=== PATIENT | male | born 1950 | race African-American/Black ===

== ENCOUNTER 2016-04-24 12:05 | Inpatient (IN) | payer MEDICARE, MEDICAID ==
[~2016-04-24] VITALS: Ht 190.5 cm; Wt 89.2 kg
[~2016-04-24 12:05] MED LIST: AMRIX30 MG PO; ANUSOL-HC 2.5%30 GM TP; ASACOL; ASCORBIC ACID500 MG PO; ASPIRIN81 MG PO; BACTRIM DS TABL1 TAB PO; BAYER CHEWABLE81 MG PO; CARAFATE1 G PO; CARDURA4 MG PO; CIPRO500 MG PO; CORDARONE200 MG PO; COREG 3.1253.125 MG GT; COREG 3.1253.125 MG PO; COUMADIN5 MG PO; CYCLOBENZAPRINE10 MG PO; DIABETA2.5 MG PO; DIABETA5 MG PO; DULCOLAX10 MG/SUPP RC; FLAGYL500 MG PO; FORTAZ INJ500 MG IV; GLUCOTROL 5 MG T5 MG PO; GLUCOTROL XL 5 M5 MG PO; GLYBURIDE2.5 MG PO; HEPARIN SOD5000 U/ML SQ; HUMALOG100 U/M1 SQ; HYDRALAZINE HCL25 MG; LISINOPRIL10 MG PO; LOMOTIL TABLET1 TAB PO; LOPRESSOR IV; LORTAB 5/500 TA1 TA2 PO; MEPHYTON5 MG PO; MIRALAX17 GM PO; NEURONTIN 300300 MG PO; NEXIUM40 MG PO; NITROSTAT0.4 MG SL; NORCO 5/325 TAB1 TA1 PO; NORCO 7.5-3251 EACH PO; NORCO 7.5/325 T1 TA1 PO; NORVASC2.5 MG PO; NORVASC5 MG PO; ONDANSETRON H2 MG/ML IV; PACERONE100 MG PO; PACERONE200 MG PO; PAXIL20 MG PO; PHENERGAN25 M1 PO; PHENERGAN25 MG/ML IM; PLAVIX75 MG PO; PREVACID30 MG PO; PRINIVIL20 MG PO; PROTONIX 40 MG40 MG IV; PROTONIX40 MG PO; QUESTRAN PACK4 G/PKT PO; RENAGEL800 MG PO; REQUIP XL2 MG PO; SALINE FLUSH10 ML IJ; SENSIPAR30 MG PO; SENSIPAR60 MG PO; TUMS500 MG PO; TYLENOL 325 MG325 MG PO; TYLENOL325 MG PO; ULTRAM50 MG PO; VIAGRA50 MG PO; [UNRECOGNIZED DRUG - OTHER] IV; [UNRECOGNIZED DRUG - OTHER] OR
[2016-04-24 13:34] LABS: BASOPHILS 0.2 % (0.0-2.0); EOSINOPHILS 2.2 % (0-7); HEMATOCRIT 26.9 % (42.0-54.0); HEMOGLOBIN 8.2 g/dL (13.5-17.5); IMMATURE GRANULOCYTES 0.2 % (0-5); LYMPHOCYTES 10.6 % (15-50); MCH 29.7 pg (26.0-34.0); MCHC 30.5 g/dL (31.0-37.0); MCV 97.5 fL (80.0-100.0); MEAN PLATELET VOLUME 9.6 fL (7.4-10.4); NEUTROPHILS 76.8 % (40-80); PLATELET COUNT 173 10x3/uL (130-400); RBC 2.76 10x6/uL (4.20-6.10); RDW 16.6 % (11.5-14.5); WBC 5.1 10x3/uL (4.8-10.8)
--- NOTE | 2016-04-24 17:04 | NUR ---
RECEIVED PT FROM ADMISSIONS VIA W/C IN STABLE CONDITION ASSISTED TO BED [id number] WELL NAD NOTED
[2016-04-24 20:36] VITALS: BP 195/79
[2016-04-25 00:24] VITALS: BP 160/50
[2016-04-25 04:37] VITALS: BP 164/54
[2016-04-25 06:23] VITALS: BP 195/79; BMI 25.8
[2016-04-25 07:02] LABS: BASOPHILS 0.4 % (0.0-2.0); EOSINOPHILS 1.6 % (0-7); HEMOGLOBIN 7.9 g/dL (13.5-17.5); IMMATURE GRANULOCYTES 0.3 % (0-5); LYMPHOCYTES 5.8 % (15-50); MCH 29.5 pg (26.0-34.0); MCHC 30.4 g/dL (31.0-37.0); MEAN PLATELET VOLUME 9.8 fL (7.4-10.4); MONOCYTES 13.1 % (2-11); NEUTROPHILS 78.8 % (40-80); PLATELET COUNT 185 10x3/uL (130-400); RBC 2.68 10x6/uL (4.20-6.10); RDW 16.9 % (11.5-14.5)
[2016-04-25 07:03] LABS: WBC 6.8 10x3/uL (4.8-10.8)
--- NOTE | 2016-04-25 07:09 | NUR ---
PT LAYING TO LEFT SIDE DENIES NEEDS AT THIS TIME WILL CONTINUE TO MONITOR.
[2016-04-25 07:16] LABS: ANION GAP 17.2 mmol/L (8-16); CALCIUM 9.3 mg/dL (8.5-10.1); CREATININE - SERUM 9.1 mg/dL (0.6-1.3); POTASSIUM - SERUM 4.2 mmol/L (3.5-5.1)
[2016-04-25 08:28] VITALS: BP 184/83
[2016-04-25 09:53] VITALS: Ht 190.5 cm; Wt 89.2 kg
--- NOTE | 2016-04-25 10:59 | NUR ---
PT STILL IN DIALYSIS
--- NOTE | 2016-04-25 12:21 | NUR ---
Mr. Loo had hemodialysis today via his right upper arm av fistula from 0813 untill 1114 in the dialysis suite. Average blood flow was 400 mls/minute. Net fluid removed was 4000 mls. Post vital signs were: B/P: 176/92, HR: 92, Temp: 98.4, Resps:18.
--- NOTE | 2016-04-25 14:27 | NUR ---
CHANGED PT DRESSING ON LEFT STUMP PER PT REQUEST. COPIOUS AMOUNT OF DRAINAGE GREEN/YELLOW IN COLOR, FOUL SMELLING. WOUND BED RED/PINK IN COLOR. CLEANSED WITH WOUND CERTIFIED SURGICAL TECHNOLOGIST. DRESSED WITH 4X4 AND CURLEX DRESSING. SIGNED AND DATED. PT TOLERATED WELL. PT DENIES OTHER NEEDS AT THIS TIME WILL CONTINUE TO MONITOR.
[2016-04-25 16:03] VITALS: BP 154/76
--- NOTE | 2016-04-25 16:43 | NUR ---
LOOKED ON PT LEFT ARM FOR IV ACCESS DIDNT SEE ANYTHIGN. ASKED PAXTON BEST TO SITE PT IF POSSIBLE. ATTEMPTED TO SITE PT TO LEFT AC X1 STICK NO SUCCESS, VEIN BLEW. APPLIED WARM BLANKETS AND WARM WIPE PACKS TO ARM. REASSESSED. STILL NO S/S VEINS. NO IV SITE.
--- NOTE | 2016-04-25 18:04 | NUR ---
PT REMOVED DRESSING FROM LEG FOR THE SECOND TIME TODAY REDRESSED AGAIN. CLEANSED WITH WOUND COMBAT ENGINEER DRESSED WITH 4X4 AND CURLEX DRESSING SIGNED AND DATED.
--- NOTE | 2016-04-25 20:20 | NUR ---
THERMOSTAT BROKEN IN PT ROOM 2135. PT MOVED TO 2138.
[2016-04-25 20:49] VITALS: BP 152/50
[2016-04-26 00:04] VITALS: BP 141/60
[2016-04-26 04:12] VITALS: BP 138/60
[2016-04-26 08:52] VITALS: BP 154/59
--- NOTE | 2016-04-26 10:00 | NUR ---
IV STARTED LEFT FOREARM. 20GUAGE
[2016-04-26 10:07] LABS: BASOPHILS 0.5 % (0.0-2.0); EOSINOPHILS 2.3 % (0-7); HEMATOCRIT 24.5 % (42.0-54.0); HEMOGLOBIN 7.6 g/dL (13.5-17.5); IMMATURE GRANULOCYTES 0.3 % (0-5); LYMPHOCYTES 9.1 % (15-50); MCV 96.8 fL (80.0-100.0); MEAN PLATELET VOLUME 9.7 fL (7.4-10.4); MONOCYTES 9.8 % (2-11); PLATELET COUNT 184 10x3/uL (130-400); RBC 2.53 10x6/uL (4.20-6.10); RDW 17.4 % (11.5-14.5)
[2016-04-26 10:43] LABS: ALBUMIN 2.6 g/dL (3.4-5.0); ANION GAP 12.8 mmol/L (8-16); BILIRUBIN - TOTAL 0.38 mg/dL (0.2-1.3); CALCIUM 9.1 mg/dL (8.5-10.1); CARBON DIOXIDE 30.4 mmol/L (21.0-32.0); CREATININE - SERUM 7.6 mg/dL (0.6-1.3); POTASSIUM - SERUM 4.2 mmol/L (3.5-5.1); PROTEIN - SERUM 6.3 g/dL (6.4-8.2)
[2016-04-26 13:20] VITALS: BP 156/60
--- NOTE | 2016-04-26 15:00 | NUR ---
PT LEAVING FOR CTA WITH IMAGING TODAY.
[2016-04-26 17:18] VITALS: BP 158/41
[2016-04-26 20:19] VITALS: BP 116/77
--- NOTE | 2016-04-26 20:30 | NUR ---
ADMIN SCHED MED. REQUESTED MORE ICE WATER AND BALDEV CRACKERS.
[2016-04-27 00:36] VITALS: BP 114/67
[2016-04-27 04:46] VITALS: BP 126/70
--- NOTE | 2016-04-27 06:21 | NUR ---
ADMIN SCHED MEDS. DRSG CAME OFF LEFT STUMP. CLEANED STUMP WITH WOUND UPPER LEATHER CUTTER. APPLIED ANOTHER DRSG WITH 4X4'S, WRAPPED WITH KERLIX.
--- NOTE | 2016-04-27 07:36 | NUR ---
AM ROUNDING- PT LAYING ON LEFT SIDE SLEEPING. IV SEEN TO LEFT FOREARM SALINE LOCKED AND PATENT. ON ROOM AIR. PT HAS RIGHT AVF AND DIALYZES ON WEDNESDAY, WEDNESDAY, AND SATURDAYS. PT IS HAS BILATERAL BKA. PER REPORT FROM PELT SHEARER NURSE JAGRUTI, THE RIGHT BKA IS OLDER AND HEALED, THE LEFT ONE IS FAIRLY NEW AT 5 WEEKS. DRESSING CLEAN, DRY AND INTACT SEEN TO RIGHT STUMP. PER REPORT FROM PELT SHEARER NURSE JAGRUTI, PT HAS RIGHT INDEX FINGER THAT IS NECROCTIC. NO MONITOR. PT IS ON LOVENOX FOR DVT PREVENTION. NO NEED AT THIS TIME. WILL CONTINUE TO MONITOR.
[2016-04-27 08:00] VITALS: BP 109/47
[2016-04-27 11:27] VITALS: BP 139/71
--- NOTE | 2016-04-27 12:54 | NUR ---
WOUND CARE CONSULT: MARIA M HAS DRESSING IN PLACE. PT STATES HH COMES AND CHANGES IT DAILY DOING NORMAL SALINE WET TO DRY DRESSINGS. MEASUREMENTS ARE 6.5CM X 11CM X 2CM. WOUND BED IS PINK AND WITHOUT ODOR. CLEANSED WITH WOUND SUPERINTENDENT CIRCUS AND APPLIED 4X4S SATURATED WITH NORMAL SALINE. COVERED WITH DRY 4X4S, WRAPPED WITH KERLIX AND SECURED WITH TAPE. FOR ADDITIONAL SECURITY APPLIED SPANDAGE OVER DRESSING. PT TOLERATED WELL.
--- NOTE | 2016-04-27 13:26 | NUR ---
1245- LAURA, WOUNDCARE NURSE IN PTS ROOM CHANGING LEFT BKA DRESSING.
--- NOTE | 2016-04-27 14:15 | NUR ---
Patient Name: SHERITA LOCKHART Admission Status: ER Accout number: [id number] Admission Date: 04-24-2016 : 1950 Admission Diagnosis: Attending: ERMIAS Current LOS: 3 Anticipated DC Date: Planned Disposition: Senior Living Facility Primary Insurance: MEDICARE A & B Discharge Planning Comments: * Is the patient Alert and Oriented? Yes 0 * How many steps to enter\exit or inside your home? NONE 0 * PCP DR. WENDY HARLEY 0 * Pharmacy [facility] IN [place] 0 * Preadmission Environment Home with Family 0 * ADLs Independent 0 * Equipment Glucometer Oxygen 0 * Other Equipment HOVERROUND SCOOTER IS INOPERATIVE [facility] MEDICAL EQUIPMENT PROVIDER IN [place], [place]. 0 * List name and contact numbers for known caregivers / representatives who currently or will assist patient after discharge: ALEXANDER LOCKHART, SPOUSE, 0 * Community resources currently utilized Home Health, Other 0 * Please name any agencies selected above. [facility], [place] [facility]; [phone] , OUTPATIENT DIALYSIS, [facility] IN [place], , 1030 AM, SCAT TRANSPORTATION. * Additional services required to return to the preadmission environment? Yes * Can the patient safely return to the preadmission environment? Yes 0 * Has this patient been hospitalized within the prior 30 days at any hospital? No 0 CM MET WITH PT IN ROOM TO DISCUSS DISCHARGE PLANNING AND NEEDS. PT REPORTS LIVING AT HOME INDEPENDENTLY AND WITH HIS WHO IS CURRENTLY IN REHAB AT [facility]. PT REPORTS HAVING ALL NEEDED MEDICAL EQUIPMENT FROM AN UNKNOWN PROVIDER IN [place]; PT REPORTS THE HOVERROUND SCOOTER HE GOT FROM A FRIEND NO LONGER WORKS AND HIS MANUAL WHEELCHAIR IS NOT WORKING GOOD EITHER. PT RECEIVES DIALYSIS AT [facility] IN [place], , 1030, MEDICAID TRANSPORTATION TAKES HIM TO AND FROM APPOINTEMENTS. PT PROVIDED HIS MEDICAID NUMBER, [id number]. CM DISCUSSED AVAILABILITY OF HOME HEALTH, REHAB SERVICES AND MEDICAL EQUIPMENT. PT WANTS TO GO TO [facility] FOR REHAB SERVICES. CHOICE LETTER SIGNED BY PT, IMPORTANT MESSAGE FROM MEDICARE PROVIDED AND EXPLAINED. CM CALLED [facility], , LEFT MESSAGE FOR [facility] REQUESTING REHAB EVALUATION SUM[facility] IS ON VACATION. CM FAXED REFERRAL TO [facility] AT [phone]. CM WAITING REHAB EVALUATION / ADMISSION DETERMINATION FROM [facility]. Foreign Correspondent: Ian Brown
[2016-04-27 16:00] VITALS: BP 142/69
--- NOTE | 2016-04-27 16:07 | NUR ---
CONSENTS FOR PROCEDURE TOMORROW SIGNED AND DATED AND PLACED IN CHART.
--- NOTE | 2016-04-27 16:07 | NUR ---
WHILE ASSISTING PT TO RESTROOM, PT STATED "WHERE IS MY ROYAL" , THEN PRECEDED TO STATE, "HOW DID I GET HERE". THEN PT STATED THAT THERE FOR A MINUTE HE WAS CONFUSED AND THOUGHT HE WAS AT AN OFFICE IN [place]. I THEN ASKED PT WHERE HE WAS AT THIS TIME, HE REPLIED "[facility]". WILL CONTINUE TO MONITOR.
--- NOTE | 2016-04-27 17:04 | NUR ---
WHILE GIVING PT EVENING MEDICINE, PT STARTED THROWING UP RED COLORED EMESIS. PT HAD RED JELLO FOR LUNCH TODAY. WILL CONTINUE TO MONITOR.
--- NOTE | 2016-04-27 18:11 | NUR ---
PT SITTING UP ON SIDE OF BED. ASKED PT IF HE FEELS BETTER FROM EARLIER, PT REPLIED "YES". WILL CONTINUE TO MONITOR.
--- NOTE | 2016-04-27 19:37 | NUR ---
PATIENT SLEEPING ON RIGHT SIDE IN BED. BED IN LOWEST LOCKED POSITION, CALL LIGHT WITHIN REACH, x2 BEDRAILS UP, HOB ELEVATED 20 DEGREES. NO APARENT DISTRESS, ON ROOM AIR. 2OG PIV TO LEFT FOREARM THAT IS SALINE LOCKED. RIGHT AV FISTULA WNL. BANDAGE TO THE LEFT BKA, RIGHT BKA WNL. RIGHT INDEX FINGER HAS A NECROTIC AREA THAT IS SUPPOSED TO BE AMPUTATED. RING FINGER HAS A BLACKENED TIP. A&O, NO COMPLAINTS OF PAIN OR NAUSEA.
[2016-04-27 20:58] VITALS: BP 163/92
[2016-04-28 01:46] VITALS: BP 162/84
--- NOTE | 2016-04-28 02:45 | NUR ---
PT LAYING IN BED NO DISTRESS OBSERVED AT THIS TIME RESPERATIONS EVEN LEFT BKA WRAPPED IN DRESSING AND PT DENIES PAIN AT THIS TIME. PT INFORMED OF PROCEDURE TO RIGHT HAND DUE TO NECROTIC TISSUE CALL LIGHT IN REACH SRX2 BED LOW AND LOCKED WILL MONITOR
[2016-04-28 05:13] VITALS: BP 158/80
[2016-04-28 05:29] LABS: BASOPHILS 0.3 % (0.0-2.0); EOSINOPHILS 3.1 % (0-7); HEMATOCRIT 23.1 % (42.0-54.0); IMMATURE GRANULOCYTES 0.3 % (0-5); LYMPHOCYTES 10.9 % (15-50); MCH 29.9 pg (26.0-34.0); MCHC 31.2 g/dL (31.0-37.0); MCV 95.9 fL (80.0-100.0); MEAN PLATELET VOLUME 9.4 fL (7.4-10.4); MONOCYTES 9.4 % (2-11); PLATELET COUNT 160 10x3/uL (130-400); RBC 2.41 10x6/uL (4.20-6.10); RDW 16.6 % (11.5-14.5); WBC 3.9 10x3/uL (4.8-10.8)
[2016-04-28 05:37] LABS: HEMOGLOBIN 7.2 g/dL (13.5-17.5); INR 2.56 (0.85-1.17); PROTIME 27.7 SECONDS (11.6-15.0)
[2016-04-28 06:28] LABS: ANION GAP 19.5 mmol/L (8-16); CALCIUM 8.4 mg/dL (8.5-10.1); CARBON DIOXIDE 23.8 mmol/L (21.0-32.0); PHOSPHOROUS 6.8 mg/dL (2.5-4.9); POTASSIUM - SERUM 4.3 mmol/L (3.5-5.1)
[2016-04-28 06:29] LABS: CREATININE - SERUM 9.8 mg/dL (0.6-1.3)
--- NOTE | 2016-04-28 07:45 | NUR ---
AM ROUNDING- PT LAYING IN BED ON RIGHT SIDE SLEEPING. IV SEEN TO LEFT FOREARM SALINE LOCKED AND PATENT. ON ROOM AIR. PT HAS RIGHT INDEX FINGER THAT IS NECROTIC. PT IS NPO FOR SURGERY TODAY TO HAVE RIGHT INDEX FINGER AMPUTATED. CONSENTS ARE SIGNED AND DATED AND IN CHART. SHOP TAILOR NURSE, ALEXEI IS DOING SURGICAL BATH AT PRESENT TIME. PT HAS BILATERAL BKA TO RIGHT AND LEFT SIDE. DRESSING SEEN TO LEFT SIDE THAT IS CLEAN, DRY AND INTACT. RESERVE RIGHT ARM FOR AVF. PT DIALYZES ON WEDNESDAY, WEDNESDAY, AND WEDNESDAY. NO MONITOR. WHEELCHAIR AT BEDSIDE. ON LOVENOX FOR DVT PREVENTION. PT HAD A [facility]ITCAL LAB THIS AM, [facility] 7.2, SHOP TAILOR NURSE FILLED OUT CRITICAL LAB SHEET. WILL CONTINUE TO MONITOR.
[2016-04-28 08:28] VITALS: BP 171/67
--- NOTE | 2016-04-28 09:55 | NUR ---
DIALYSIS CALLED WANTING TO KNOW IF PT CAN GO AHEAD AND HAVE DIALYSIS. PAGED DR. OSMAN TO SEE IF PT CAN GO FOR DIALYSIS BEFORE SURGERY. AWAITING CALLBACK.
--- NOTE | 2016-04-28 11:09 | NUR ---
PT TO SURGERY VIA BED. PRE-OP MEDICATIONS GIVEN ORDERED.
--- NOTE | 2016-04-28 11:49 | NUR ---
1000- IVORY FROM DIALYSIS CALLED TO SEE WHEN PT CAN COME FOR DIALYSIS. INFORMED IVORY THAT PT IS HAVING SURGERY TODAY AND I DO NOT KNOW WHEN PT WILL BE GOING FOR THAT. 1017- CALLED DR. OSMAN TO SEE IF IT WAS OK TO GO AHEAD AND DO DIALYSIS BEFORE SURGERY OR AFTER, DR. OSMAN STATED TO CALL SURGERY TO SEE WHAT TIME THE SURGERY WOULD BE BEFORE LETTING PT GO TO DIALYSIS. CALLED SURGERY, ULICES CHARGE NURSE STATED IT WOULD BE AROUND 1215 AND TO WAIT TO DO DIALYSIS UNTIL AFTER SURGERY. CALLED DIALYSIS AND SPOKE WITH IVORY TO INFORM HER OF THIS.
--- NOTE | 2016-04-28 12:59 | NUR ---
PREOPERATIVE PULSE OX PER ANESTHESIA WAS 85%
--- NOTE | 2016-04-28 13:10 | NUR ---
GLADYS RN CALLED FROM RECOVERY IN SURGERY. STATED PT WAS DOING FINE, WASN'T IN ANY PAIN AND HAS BEEN NO PROBLEM FOR THEM. STATED ANESTHESIA SAID HE CAN EAT WHEN BACK ON UNIT. REPORTED THAT HIS O2 SAT IS 98% ROOM AIR. AWAITING PT TO GET TO UNIT.
--- NOTE | 2016-04-28 13:26 | NUR ---
PT BACK FROM SURGERY VIA BED. STATES HE IS NOT IN ANY KIND OF PAIN RIGHT NOW. B/P IS 143/77, RESPIRATIONS ARE 16, PULSE IS 77, TEMP IS 97.5. WILL CONTINUE TO MONITOR.
--- NOTE | 2016-04-28 16:17 | NUR ---
CALLED IVORY IN DIALYSIS TO INFORM HER THAT PT WILL BE GETTING 2 UNITS OF PRBC.
--- NOTE | 2016-04-28 16:47 | NUR ---
TO DIALYSIS VIA WHEELCHAIR.
--- NOTE | 2016-04-28 17:30 | NUR ---
1600-CHANGED PTS DRESSING TO LEFT BKA. WOUND BED IS PINK WITHOUT ODOR, NO DRAINAGE SEEN. MEASUREMENTS ARE 6.5CM X 11CM X 2CM. WOUND CLEANSED WITH WOUND REAL ESTATE JOB TITLES AND APPLIED 4X4S SATURATED WITH NORMAL SALINE. COVERED WITH DRY 4X4S AND WRAPPED WITH KERLIX AND SECURED WITH TAPE. PT TOLERATED WELL. WILL CONTINUE TO MONITOR.
--- NOTE | 2016-04-28 18:44 | NUR ---
PT IS AT DIALYSIS.
--- NOTE | 2016-04-28 20:41 | NUR ---
PATIENT RETURNED TO ROOM FROM DIALYSIS VIA WHEELCHAIR.
[2016-04-29 00:37] VITALS: BP 145/74
[2016-04-29 04:31] VITALS: BP 170/66
[2016-04-29 05:21] LABS: BASOPHILS 0.2 % (0.0-2.0); EOSINOPHILS 1.9 % (0-7); IMMATURE GRANULOCYTES 0.5 % (0-5); LYMPHOCYTES 8.7 % (15-50); MCH 30.2 pg (26.0-34.0); MCHC 31.7 g/dL (31.0-37.0); MCV 95.3 fL (80.0-100.0); MEAN PLATELET VOLUME 9.7 fL (7.4-10.4); MONOCYTES 7.8 % (2-11); NEUTROPHILS 80.9 % (40-80); PLATELET COUNT 151 10x3/uL (130-400); RDW 16.5 % (11.5-14.5); WBC 4.1 10x3/uL (4.8-10.8)
[2016-04-29 05:33] LABS: HEMATOCRIT 28.1 % (42.0-54.0); HEMOGLOBIN 8.9 g/dL (13.5-17.5); RBC 2.95 10x6/uL (4.20-6.10)
[2016-04-29 05:45] LABS: ANION GAP 15.3 mmol/L (8-16); CALCIUM 8.5 mg/dL (8.5-10.1); CARBON DIOXIDE 28.8 mmol/L (21.0-32.0); CREATININE - SERUM 7.5 mg/dL (0.6-1.3); PHOSPHOROUS 6.3 mg/dL (2.5-4.9); POTASSIUM - SERUM 4.1 mmol/L (3.5-5.1)
[2016-04-29 08:40] VITALS: BP 157/57
[2016-04-29 12:38] VITALS: BP 138/67
--- NOTE | 2016-04-29 12:58 | NUR ---
Patient Name: SHERITA LOCKHART Encounter No: [id number] : 1950 Primary Insurance: MEDICARE A & B Anticipated DC Date: Planned Disposition: [facility] Facility External Planned Provider: [facility], MEDICARE REHAB BED DCP follow-up note: CM FAXED REFERRAL UPDATE TO KATHY AT [facility] AT [phone]. CM WAITING REHAB EVALUATION / ADMISSION DETERMINATION FROM [facility]. Bath Tester: Ian Brown
--- NOTE | 2016-04-29 13:26 | NUR ---
UP TO BEDSIDE COMMODE WITH ASSISTANCE OF PT. NANO WELL. DRESSING ON HAND CDI, CAPILLARY REFILL <3 MINS. MOVING FINGERS WELL. L STUMP DRESSING CLEAN AND DRY WITH NO DRAINAGE.
--- NOTE | 2016-04-29 14:00 | NUR ---
Nutrition follow-up: Diet: Renal PO Intake ~50% post-surgery Labs reviewed Wt: 223# +BM Will continue to provide food choices and honor food preferneces. RDN will order Nepro BID. Following.
--- NOTE | 2016-04-29 15:20 | NUR ---
PATIENT RESTING QUIETLY IN HIS BED, HO UP 30 DEGREES. HE IS AWKE AND ALERT AND STATES THAT HE NEEDS ASSISTANCE WITH DRESSING TO THE LEFT BKA. DRESSING IS OFF AND FRESH FLESH IS EXPOSED. DENIES OTHER NEEDS.
[2016-04-29 16:07] VITALS: BP 142/52
--- NOTE | 2016-04-29 19:12 | NUR ---
PATIENT'S STUMP HAS BEEN REDRESSED WITH NS WET TO DRY. HE IS ABLE TO TRANSFER SELF FROM BED TO .
[2016-04-29 22:30] VITALS: BP 128/89
--- NOTE | 2016-04-29 23:41 | NUR ---
PT ASSESSMENT COMPLETED PT C/O DIHARREA AND ASKING FOR SOMETHING TO ASSIST IN RELIFE NO ORDERS AT THIS TIME. DRESSING TO LEFT HAND INTACT AND NO DRAINAGE NOTED OR OBSERVED. DRESSING TO RIGHT STUMP IN PLACE, WET TO DRY DRESSING AND NO DRAINAGE OBSERVED. WILL MONITOR
[2016-04-30 02:50] VITALS: BP 195/66
[2016-04-30 06:05] VITALS: BP 171/101
[2016-04-30 06:33] LABS: BASOPHILS 0.2 % (0.0-2.0); EOSINOPHILS 2.1 % (0-7); HEMATOCRIT 28.7 % (42.0-54.0); LYMPHOCYTES 9.7 % (15-50); MCH 29.7 pg (26.0-34.0); MCHC 31.4 g/dL (31.0-37.0); MCV 94.7 fL (80.0-100.0); MEAN PLATELET VOLUME 9.5 fL (7.4-10.4); MONOCYTES 9.5 % (2-11); NEUTROPHILS 78.5 % (40-80); PLATELET COUNT 144 10x3/uL (130-400); RBC 3.03 10x6/uL (4.20-6.10); WBC 4.3 10x3/uL (4.8-10.8)
[2016-04-30 06:52] LABS: ANION GAP 17.6 mmol/L (8-16); CALCIUM 8.5 mg/dL (8.5-10.1); CARBON DIOXIDE 26.5 mmol/L (21.0-32.0); PHOSPHOROUS 6.5 mg/dL (2.5-4.9); POTASSIUM - SERUM 4.1 mmol/L (3.5-5.1)
--- NOTE | 2016-04-30 07:27 | NUR ---
PT SITTING UP IN BED TRYING TO TRANSFER TO WHEELCHAIR. ASSISTED HIM. PT DENIES OTHER NEEDS WILL CONTINUE TO MONITOR.
[2016-04-30 08:21] VITALS: BP 171/84
--- NOTE | 2016-04-30 10:08 | CN ---
PATIENT NAME:SHERITA LOCKHART MEDICAL RECORD: [id number] : [birth year] LOCATION:D. D.2139 ADMIT DATE: 04/24/16 ACCOUNT: [id number] CONSULTING PHYSICIAN: YO IYER MD REFERRING PHYSICIAN: ELIZABET OSMAN MD DATE OF CONSULTATION: 04/25/2016 HISTORY OF PRESENT ILLNESS: The patient has necrosis of part of the right index finger. This is the site where he has a fistula. I will call for Dr. Alvarado. Dr. Alvarado's currently out of town. I am going to order a CTA of the right upper extremity. The extremity is swollen. If this was a steal problem, I would expect it to be dry gangrene and for the hand to have a dry eschar and be small. The patient states that his pain is 10/10. Palpation aggravates. Nothing alleviates. This is a consultation note addendum. Symptoms came on gradually. They are nonradiating. For the typed portion of the consult note, please see the chart. This included past medical, surgical history, allergies, social history as well as current medications. REVIEW OF SYSTEMS: No nausea, no vomiting, no fever, no chills. Positive for fatigue, positive for shortness of breath, no chest pain. Review of systems is negative other than as is described above. PHYSICAL EXAMINATION: GENERAL: The patient does not appear acutely ill. He does not appear chronically ill. VITAL SIGNS: Reviewed. HEAD: External ears appear normal. EYES: Extraocular movements are intact. NECK: Trachea is midline. CHEST: No intercostal retractions. PULMONARY: Nonlabored, no stridor. ABDOMEN: Nontender. EXTREMITIES: Infection of the right index finger with eschar. NEUROLOGIC: Nonfocal, no lethargy. The patient answers questions appropriately. PSYCHIATRIC: Normal affect. BACK: No thoracic kyphosis. LYMPHATICS: No lymphangitic streaking of the exposed extremities. IMPRESSION: Infection of right index finger, possible steal syndrome. PLAN: CTA of the right upper extremity. Orthopedic consultation. For possible debridement. TRANSINT:[id number] Voice Confirmation ID: [id number] DOCUMENT ID: [id number] CONSULT REPORT [id number] SHERITA LOCKHART ROBERT MD at 1008 CC: [id number] DICTATION DATE: 04/25/162009 SEDIMENT REMEDIATION CONSULTANT: 04/26/16 0243 ADM IN [facility] [address] [id number]
--- NOTE | 2016-04-30 11:55 | NUR ---
GOT CONSENTS SIGNED AND THEY ARE ON THE CHART.
[2016-04-30 12:04] VITALS: BP 136/96
--- NOTE | 2016-04-30 12:35 | NUR ---
INITIATION OF HEMODIALYSIS ON PATIENT, 400BFR, 15G NEEDLES, NO ACUTE DISTRESS. ATTEMPTING 4 LITERS IN 3 HOURS.
--- NOTE | 2016-04-30 15:47 | NUR ---
PT IS SITTING UP IN BED WATCHING TV DENIES NEEDS AT THIS TIME PT IS TO HAVE FISTULAGRAM TOMORROW CONSENTS HAVE BEEN SIGNED AND ARE ON THE CHART. PT DENIES NEEDS AT THIS TIME. DRESSINGS ARE CDI AT THIS TIME. WILL CONTINUE TO MONITOR.
--- NOTE | 2016-04-30 15:50 | NUR ---
HEMODIALYSIS COMPLETE, NET FLUID REMOVAL OF 4 LITERS, TOLERATED WELL. BLOOD RETURNED, NEEDLES PULLED, HEMOSTASIS ACHEIVED. FLOOR NURSE LUCAS OCHOA RN DOWNSTAIRS TO GIVE MEDS, TOOK PATIENT BACK BY .
--- NOTE | 2016-04-30 19:33 | NUR ---
RECEIVED REPORT, TADEO-DARYL, BED IS LOW, SRX2, CALL LIGHT IN REACH, DENIES ANY AT THIS TIME
[2016-04-30 20:00] VITALS: BP 143/64
--- NOTE | 2016-04-30 21:00 | NUR ---
DRESSING CHANGED TO L.BKA
[2016-05-01] VITALS: BP 143/78
--- NOTE | 2016-05-01 00:28 | NUR ---
COMBINATION MACHINE TOOL OPERATOR AT BEDSIDE TO OBTAIN VITALS, CALL LIGHT IN REACH. WILL CONTINUE WITH PLAN OF CARE.
[2016-05-01 04:00] VITALS: BP 143/78
[2016-05-01 05:42] LABS: BASOPHILS 0.2 % (0.0-2.0); EOSINOPHILS 1.7 % (0-7); HEMATOCRIT 28.7 % (42.0-54.0); LYMPHOCYTES 8.5 % (15-50); MCH 29.8 pg (26.0-34.0); MCHC 31.4 g/dL (31.0-37.0); MEAN PLATELET VOLUME 9.6 fL (7.4-10.4); MONOCYTES 9.3 % (2-11); NEUTROPHILS 80.3 % (40-80); PLATELET COUNT 163 10x3/uL (130-400); RBC 3.02 10x6/uL (4.20-6.10); RDW 15.9 % (11.5-14.5); WBC 4.7 10x3/uL (4.8-10.8)
[2016-05-01 05:48] LABS: ANION GAP 13.8 mmol/L (8-16); CARBON DIOXIDE 28.8 mmol/L (21.0-32.0); CREATININE - SERUM 7.3 mg/dL (0.6-1.3); POTASSIUM - SERUM 3.6 mmol/L (3.5-5.1)
--- NOTE | 2016-05-01 07:09 | NUR ---
PT SITTING UP IN BED WATCHING TV DENIES NEEDS AT THIS TIME WILL CONTINUE TO MONITOR
[2016-05-01 08:05] VITALS: BP 153/90
[2016-05-01 12:19] VITALS: BP 154/108
--- NOTE | 2016-05-01 14:14 | NUR ---
Nutrition Follow Up: Chart reviewed. Pt had fistulogram today. Diet: NPO (Renal prior to this) PO Intake: 61% (9 meal avg) Wt gain of 18# since admit +BM 04/30/16 Meds: Zofran Labs noted - Na low; BUN, Cr, Phos elevated Pt with fair po intake prior to NPO diet. Rec resuming Renal diet when medically feasible. RD following.
--- NOTE | 2016-05-01 14:21 | NUR ---
PT TO SURGERY
--- NOTE | 2016-05-01 16:17 | NUR ---
OPEN WOUND FROM RECENT RIGHT FIRST FINGER AMPUTATION. -ECOSTER
[2016-05-01 18:13] VITALS: BP 141/71
--- NOTE | 2016-05-01 19:25 | NUR ---
RECEIVED REPORT. TADEO-DARYL. LEFT CHEST HEMOSPLIT, R. AVF, DENIES ANY NEEDS, CALL LIGHT IN REACH, BED IS LOW, SRX2
[2016-05-01 20:00] VITALS: BP 136/70
--- NOTE | 2016-05-01 21:05 | NUR ---
DRESSING CHANGED TO LBKA, DENIES ANY PAIN AT THIS TIME
[2016-05-02] VITALS: BP 173/77
--- NOTE | 2016-05-02 01:12 | NUR ---
PT RESTING SOUNDLY WITHOUT C/O OR DISTRESS NOTED. CALL LIGHT IS WITHIN REACH. NO NEEDS VOICED. WILL MONITOR.
[2016-05-02 07:34] VITALS: BP 175/81
[2016-05-02 08:05] LABS: BASOPHILS 0.2 % (0.0-2.0); EOSINOPHILS 1.7 % (0-7); HEMATOCRIT 28.6 % (42.0-54.0); HEMOGLOBIN 9.1 g/dL (13.5-17.5); IMMATURE GRANULOCYTES 0.2 % (0-5); LYMPHOCYTES 5.4 % (15-50); MCHC 31.8 g/dL (31.0-37.0); MCV 94.4 fL (80.0-100.0); MEAN PLATELET VOLUME 8.9 fL (7.4-10.4); MONOCYTES 10.7 % (2-11); NEUTROPHILS 81.8 % (40-80); PLATELET COUNT 144 10x3/uL (130-400); RBC 3.03 10x6/uL (4.20-6.10); RDW 15.5 % (11.5-14.5); WBC 4.8 10x3/uL (4.8-10.8)
--- NOTE | 2016-05-02 08:06 | NUR ---
RECEIVED REPORT FROM CUFF RUNNER NURSE, FRANKO RASMUSSEN. PT IN BED, DENIES ANY NEEDS AT THIS TIME. CALL LIGHT IN REACH, NAD NOTED, WILL CONTINUE TO MONITOR.
--- NOTE | 2016-05-02 08:58 | NUR ---
ADMINISTERED MORNING MEDICATIONS, PT UP TO SIDE OF BED, DENIES ANY NEEDS AT THIS TIME. CALL LIGHT IN REACH, NAD NOTED, WILL CONTINUE TO MONITOR.
[2016-05-02 09:02] LABS: CALCIUM 7.9 mg/dL (8.5-10.1); CREATININE - SERUM 9.1 mg/dL (0.6-1.3)
[2016-05-02 09:03] LABS: PHOSPHOROUS 6.5 mg/dL (2.5-4.9)
--- NOTE | 2016-05-02 10:25 | NUR ---
PT TRANSFERED TO DIALYSIS VIA BED, NAD NOTED.
--- NOTE | 2016-05-02 15:46 | NUR ---
PT TRANSFERED BACK TO ROOM 2139 VIA BED, NAD NOTED, PT DENIES ANY NEEDS AT THIS TIME. CALL LIGHT IN REACH, WILL CONTINUE TO MONITOR.
[2016-05-02 16:19] VITALS: BP 172/65
--- NOTE | 2016-05-02 17:28 | NUR ---
PT STATED THAT HE WAS NOT MADE AWARE OF THE FISTULOGRAM THAT THAT WAS BEING DONE ON 05/01/16. PT IS VERY UPSET OVER THAT, HE STATED " THERE WAS NOTHING WRONG WITH MY FISTULA". INFOMRED PT THAT HE SIGNED THE CONSENTS WHERE IT STATED THAT HE WAS GOING TO HAVE A RIGHT UPPER EXTREMITY FISTULOGRAM, WITH POSSIBLE ARTERIOGRAM, POSSIBLE BANDING, POSSIBLE DRIL PROCEDURE, POSSIBLE ANGIOPLASTIES OR STENTING. PT STILL VERY UNHAPPY. PT STATES THAT " HE WANTS TO LEAVE BEFORE DR. LEE KILLS HIM. PT ALSO REFUSED TO TAKE HIS CARAFATE PILLS.
--- NOTE | 2016-05-02 18:31 | NUR ---
PROVIDED DRESSING CHANGE TO LEFT STUMP BECAUSE DRESSING THAT WAS ON THERE FELL OFF. PT TOLERATED PROCEDURE WELL, ALSO PROVIDED PT WITH A PAIR OF BRIEF. PT DENIES ANY OTHER NEEDS AT THIS TIME. CALL LIGHT IN REACH, NAD NOTED, WILL CONTINUE TO MONITOR.
--- NOTE | 2016-05-02 19:43 | NUR ---
RECEIVED REPORT, SITTING UP ON SIDE OF BED, DENIES ANY NEEDS, CALL LIGHT IN REACH, BED IS LOW, SRX2, IV-LFA-SL,Judith CLEMONS. CHEST HEMOSPLIT
[2016-05-02 20:49] VITALS: BP 139/71
--- NOTE | 2016-05-03 00:14 | NUR ---
PT ON BEDPAN. WILL CONTINUE TO MONITOR.
[2016-05-03 00:36] VITALS: BP 171/57
--- NOTE | 2016-05-03 01:18 | NUR ---
DIRECTOR ECONOMIC SHAVING/BATHING/BED CHANGE
[2016-05-03 04:39] VITALS: BP 166/74
--- NOTE | 2016-05-03 07:05 | NUR ---
RECEIVED REPORT, PT IN BED, DENIES ANY NEEDS AT THIS TIME, ASSESSMENT DONE. CALL LIGHT IN REACH, NAD NOTED, WILL CONTINUE TO MONITOR.
--- NOTE | 2016-05-03 07:07 | NUR ---
recieved report on patient, patient is alert and oriented at this time. patient has a l fa iv that is sl at this time. patient is on room air, nad noted at this time. chest rises and falls equally. patient has a newly l bka with a dressing cdi at this time. patient denies any needs at this time. will cont to monitor. cpoc
--- NOTE | 2016-05-03 08:41 | NUR ---
ADMINISTERED MORNING MEDICATIONS, PT IN BED, DENIES ANY NEEDS AT THIS TIME. CALL LIGHT IN REACH, NAD NOTED, WILL CONTINUE TO MONITOR.
[2016-05-03 09:31] VITALS: BP 191/46
--- NOTE | 2016-05-03 12:33 | NUR ---
ADMINISTERED NORCO 7.5MG FOR PAIN LEVEL OF 10/10. PT DENIES ANY OTHER NEEDS AT THIS TIME. CALL LIGHT IN REACH, NAD NOTED, WILL CONTINUE TO MONITOR.
[2016-05-03 12:55] VITALS: BP 172/88
[2016-05-03 16:59] VITALS: BP 166/74
--- NOTE | 2016-05-03 17:17 | NUR ---
WAS UNABLE TO DO DRESSING CHANGE TO LEFT STUMP TODAY. DRESSING FROM YESTERDAY STILL INTACT.
[2016-05-03 21:36] VITALS: BP 149/89
--- NOTE | 2016-05-04 01:57 | NUR ---
NURSE ROUNDS 22:00 - PT LYING IN BED, COVERS PULLED OVER HIS HEAD, EASILY ROUSABLE TO VERBAL STIMULI, DENIED ANY NEEDS. PT DID NOT TOUCH HIS SUPPER TRAY, STATING HE WAS NOT HUNGRY AND MILDLY NAUSEATED, BUT REFUSED THE PO ODT ZOFRAN, SAYING IT ACTUALLY MAKES HIM MORE NAUSEATED. 21:00 MEDICATIONS GIVEN, ALONG WITH PRN NORCO, SCHEDULED DRESSING CHANGE COMPLETED, PT TOLERATED DRESSING CHANGE WELL. CONTINUE TO MONITOR CLOSELY.
[2016-05-04 02:34] VITALS: BP 152/73
[2016-05-04 04:44] VITALS: BP 151/70
--- NOTE | 2016-05-04 06:52 | NUR ---
PT AWAKE, ALERT, ORIENTED, C/O OF GROIN DISCOMFORT. PT STATES HE SWEATS IN BETWEEN HIS LEGS, AND HAS BEEN USING BABY POWDER, BUT IT IS NOT HELPING AT THIS TIME. WILL ADD BUTT PASTE AND NOTIFY PHYSICIAN. DENIES ANY OTHER NEEDS. PTS DRESSING HAS STAYED ON THIS SHIFT, IS CLEAN, DRY, AND INTACT. CONTINUE TO MONITOR.
[2016-05-04 06:58] LABS: BASOPHILS 0.2 % (0.0-2.0); EOSINOPHILS 1.6 % (0-7); HEMATOCRIT 30.3 % (42.0-54.0); HEMOGLOBIN 9.3 g/dL (13.5-17.5); IMMATURE GRANULOCYTES 0.2 % (0-5); LYMPHOCYTES 6.4 % (15-50); MCH 29.6 pg (26.0-34.0); MCHC 30.7 g/dL (31.0-37.0); MEAN PLATELET VOLUME 9.9 fL (7.4-10.4); MONOCYTES 7.6 % (2-11); RBC 3.14 10x6/uL (4.20-6.10); RDW 15.4 % (11.5-14.5)
[2016-05-04 07:08] LABS: MCV 96.5 fL (80.0-100.0); PLATELET COUNT 186 10x3/uL (130-400); WBC 6.1 10x3/uL (4.8-10.8)
--- NOTE | 2016-05-04 07:15 | NUR ---
RECIEVED REPORT ON PATIENT, PATIENT IS SLEEPING AT THIS TIME, NAD NOTED. CHEST RISES AND FALLS EQUALLY. PATIENT HAS A L FA IV THAT IS SL AT THIS TIME. DRESSING NOTED TO ROSI HERNANDEZ AT THIS TIME. PATIENT AROUSES TO VOICE, DENIES ANY PAIN OR NEEDS AT THIS TIME. WILL CONT TO MONITOR PATIENT. BED LOW AND LOCKED. CALL LIGHT IN REACH. CPOC
[2016-05-04 08:00] VITALS: BP 176/48
[2016-05-04 08:10] LABS: CALCIUM 8.1 mg/dL (8.5-10.1); CREATININE - SERUM 8.8 mg/dL (0.6-1.3); MAGNESIUM - SERUM 1.9 mg/dL (1.8-2.4)
--- NOTE | 2016-05-04 09:30 | NUR ---
LEAVING FLOOR, HOMAR MORELAND TAKING OVER CARE
[2016-05-04 11:08] VITALS: BP 143/57
--- NOTE | 2016-05-04 13:30 | NUR ---
RETURNED TO RESUME CARE ON PATIENT, PATIENT IS SITTING UP IN BED AT THIS TIME. ALERT AND ORIENTED. WATCHING TV, DENIES ANY NEEDS. WILL CONT TO MONITOR PATIENT. CPOC
--- NOTE | 2016-05-04 13:34 | NUR ---
RETURNED TO RESUME CARE, PATIENT IS SLEEPING AT THIS TIME, NAD NOTED. CHEST RISES AND FALLS EQUALLY. WILL CONT TO MONITOR
--- NOTE | 2016-05-04 14:14 | NUR ---
Patient Name: SHERITA LOCKHART Encounter No: [id number] : 1950 Primary Insurance: MEDICARE A & B Anticipated DC Date: 05-05-2016 Planned Disposition[facility] External Planned Provider: [facility], MEDICARE REHAB BED DCP follow-up note: CM CALLED AND SPOKE TO [facility] AT [facility], ; [facility] WILL ACCEPT PT FOR REHAB AT DISCHARGE. [facility] TO CHECK PT'S INSURANCE IN THE MORNING AND CALL CM BACK. [facility] TO PROVIDE VAN TRANSPORTATION TOMORROW. CM FAXED UPDATED REFERRAL INFORMATION TO [facility] AT [phone]. CM SPOKE TO PT WHO IS STILL IN AGREEMENT WITH DISCHARGE TO [facility] FOR REHAB. IMPORTANT MESSAGE FROM MEDICARE PROVIDED AND EXPLAINED. FOR DISCHARGE, FAX DISCHARGE INFORMATION TO [facility] AT [phone]. NURSE REPORT TO BE CALLED TO [facility] AT [phone]. [facility] TO ARRANGE VAN TRANSPORT. STEVE RIVERA, CASE MANAGEMENT
--- NOTE | 2016-05-04 15:00 | NUR ---
PATIENT ASSISTED TO USE THE BED MCNEIL, PATIENT HAD BM, CLEANED UP. DENIES ANY OTHER NEEDS AT THIS TIME. WILL CONT TO MONITOR
[2016-05-04 15:09] VITALS: BP 142/38
--- NOTE | 2016-05-04 17:55 | NUR ---
PATIENT STATES HE WANTS TO KEEP HIS TRAY, NOT WANTING TO EAT AT THIS TIME. WILL LEAVE TRAY. DENIES ANY PAIN OR NEEDS. CPOC
--- NOTE | 2016-05-04 19:30 | NUR ---
ASSESSMENT COMPLETE, DENIES NEEDS AT THIS TIME. HOB UP SR UP X2, C/L IN REACH. ON RA, LEFT FA SL INTACT WITH NO R/S NOTED AT SITE. BILAT BKAS NOTED, WITH LEFT BKA DRSG CDI.ON ROOM AIR, RESP UNLAB, LEFT CHEST HEMESPLIT INTACT AND LOCKED. RT AVFISTULA NOTED, NON-WORKING. RT INDEX FINGER AMP. RT MIDDLE FINGER WITH GANGRENE NOTED. BEDREST, TURNS SELF W/O DIFF. CONTINUE TO MONITOR.
[2016-05-04 21:31] VITALS: BP 191/61
--- NOTE | 2016-05-04 22:50 | NUR ---
SNACK GIVEN PER REQUEST. NANO WELL. C/L IN REACH. CONTINUE TO MONITOR.
[2016-05-05 00:11] VITALS: BP 179/86
[2016-05-05 06:31] LABS: BASOPHILS 0.2 % (0.0-2.0); EOSINOPHILS 1.6 % (0-7); HEMOGLOBIN 8.6 g/dL (13.5-17.5); IMMATURE GRANULOCYTES 0.2 % (0-5); LYMPHOCYTES 8.7 % (15-50); MCH 29.8 pg (26.0-34.0); MCHC 30.7 g/dL (31.0-37.0); MCV 96.9 fL (80.0-100.0); MEAN PLATELET VOLUME 9.9 fL (7.4-10.4); MONOCYTES 9.7 % (2-11); NEUTROPHILS 79.6 % (40-80); PLATELET COUNT 157 10x3/uL (130-400); RBC 2.89 10x6/uL (4.20-6.10); RDW 15.5 % (11.5-14.5); WBC 5.5 10x3/uL (4.8-10.8)
[2016-05-05 06:33] VITALS: BP 171/79
[2016-05-05 06:52] LABS: ANION GAP 13.5 mmol/L (8-16); CALCIUM 7.4 mg/dL (8.5-10.1); CARBON DIOXIDE 28.3 mmol/L (21.0-32.0); MAGNESIUM - SERUM 1.8 mg/dL (1.8-2.4); PHOSPHOROUS 6.1 mg/dL (2.5-4.9); POTASSIUM - SERUM 3.8 mmol/L (3.5-5.1)
[2016-05-05 07:54] VITALS: BP 148/68
--- NOTE | 2016-05-05 08:15 | NUR ---
PATIENT IS AWAKE AND ALERT, DENIES NEEDS. ASSISTED WITH MEAL SET UP.
--- NOTE | 2016-05-05 09:20 | NUR ---
PATIENT IS AWAKE AND ALERT, RATES THE PAIN IN HIS RIGHT HAND A 9. NORCO GIVEN. BP MEDICATIONS HELD FOR DIALYSIS AFTER TALKING WITH HER. EXPECT HER CALL IN 15 MINUTES TO DELIVER HIM.
--- NOTE | 2016-05-05 09:52 | NUR ---
Patient Name: SHERITA LOCKHART Encounter No: [id number] : 1950 Primary Insurance: MEDICARE A & B Anticipated DC Date: 05-06-2016 Planned Disposition: Penitentiary Facility External Planned Provider: [facility] [place]: MEDICARE REHAB BED DCP follow-up note: AT APPROXIMATELY 0830AM, [facility] RECEIVED CALL FROM [facility], ; [facility] WILL ACCEPT PT FOR REHAB AT DISCHARGE. CAN GALVANIZER NO LATER THAN 1100 TODAY. CM REVIEWED CHART AND SPOKE TO RADHA WITH [facility], PT IS SCHEDULED FOR DIALYSIS THIS MORNING, IT WILL NOT BE COMPLETED PRIOR TO 1100 AM. CM SPOKE TO PT WHO IS STILL IN AGREEMENT WITH DISCHARGE TO [facility] FOR REHAB. CM PAGED RENAL NURSE TO NOTIFY. CM CALLED [facility] AT [facility] WHO INFORMED CM THAT THEY CAN ACCEPT TOMORROW, 05-06-16 AND WILL CALL IN THE MORNING TO SCHEDULE TRANSPORTATION TO [facility] IN [place]. FOR DISCHARGE, FAX DISCHARGE INFORMATION TO [facility] AT [phone]. NURSE REPORT TO BE CALLED TO [facility] AT [phone]. [facility] TO ARRANGE VAN TRANSPORT IN THE MORNING, 05-06-16. STEVE RIVERA, CASE MANAGEMENT
--- NOTE | 2016-05-05 10:45 | NUR ---
PATIENT OFF THE UNIT TO DIALYSIS.
--- NOTE | 2016-05-05 14:16 | NUR ---
PATIENT BACK TO THE UNIT FROM DIALYSIS. HE STATE SHTAT HE FEELS BEATEN. HE DID NOT COMPLETE HIS TREATMENT, REQUESTING TO BE TAKEN OFF EARLY. HE SAID "THE MACHINE WAS TURNED UP TO HIGH". HE BECAME NAUSEATED AND FEELING POORLY. REFUSES LUNCH TRAY. ON 3 LITERS OF O2 AT THIS TIME.
--- NOTE | 2016-05-05 14:57 | NUR ---
PATIENT RESTING QUIETLY WITHOUT COMPLAINTS.
[2016-05-05 16:01] VITALS: BP 159/82
--- NOTE | 2016-05-05 16:59 | OP ---
PATIENT NAME: SHERITA LOCKHART MEDICAL RECORD: [id number] :[birth year] LOCATION:D. 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 OPERATION PERFORMED: Fistulogram with one stick done with ultrasound guidance and then open ligation of right brachiocephalic AV fistula followed by insertion of a left internal jugular 23 cm long HemoSplit tunneled dialysis catheter also done with ultrasound and fluoroscopic guidance. PREOPERATIVE NOTE: Mr. Lockhart has had a right brachiocephalic AV fistula, now for 6 or 8 months, he has had complaints of chronic pain in his right hand and has recently developed gangrene of his second and fourth fingers. He had his second finger amputated just [address] Triana. He is brought to the operating room at this time for a fistulogram and possibly revision of surgery or ligation of his fistula. Under general anesthetic with an LMA per ELECTROENCEPHALOGRAPH TECHNICIAN, the patient is prepped and draped in sterile manner. The fistula was accessed with ultrasound near the arterial anastomosis using micropuncture technique, which then led up to insertion of a 6-Chinese introducer. The ultrasound exam did demonstrate the presence of the stents within the cephalic vein in the mid portion of the arm. Also, there was identified area of stenosis in the cephalic vein in the upper one-third of the arm as it approached the deltopectoral groove where the J wire from the 6-Chinese introducer would not pass. Contrast injections then confirmed that there was a 99% stenosis of the cephalic vein at that point and that there were collaterals, which were responsible for venous outflow from this fistula. The fistula was then occluded with a 4-Chinese Lamar embolectomy catheter and repeated contrast injection and digital subtraction technique demonstrated the brachial artery anastomosis to be wide open and really no lesions of the brachial artery in the arm or antecubital level. There were, however, extensive calcifications present in the arteries of the forearm. The ulnar artery is totally occluded, the radial artery was patent, though calcified and the palm arches are not intact and the digital vessels are tiny little tortuous calcific vessels. It became rapidly apparent that the patient's atherosclerotic arterial disease is so severe that he will never be able to support dialysis access in the right upper extremity and so I went ahead and made a transverse incision just above the antecubital space and exposed the cephalic vein and doubly ligated it with 2-0 silk. That wound was then closed with interrupted inverted 3-0 Vicryl and a running intracuticular 4-0 Monocryl and Dermabond glue and was dressed with Maxorb AG and Tegaderm with Cavilon skin prep. A 4-0 Prolene [id number] skin stitch was used at the puncture site to secure hemostasis. 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 I went on to the left side and there noted that he had a very large and otherwise normal appearing internal jugular vein. An incision was made at the base of the neck, there on the left and a needle and guidewire introduced under ultrasound and then fluoroscopic guidance. Dilators were passed under fluoroscopy and lastly, a dilator peel-away sheath was introduced. I chose a new entry site, made a skin incision and pulled the catheter through the subcutaneous tunnel up to the cervical incision and then inserted the catheter through the peel-away sheath. The catheter became positioned appropriately in the right atrium and I oriented the venous and arterial limbs of the catheter appropriately I believe. Both lumens were then accessed and aspirated, free return of blood from each one was confirmed. They were then flushed with saline and then heparin locked with 100 units per cc heparin, clamped and capped. The cervical incision was closed with interrupted inverted 3-0 Vicryl and Dermabond glue and the entry site was also sealed with Dermabond glue and both sites were dressed with Maxorb Ag, Tegaderm and Cavilon skin prep. The patient was then awakened and in stable condition returned to the recovery room. The patient will have a single view chest x-ray in recovery to document the catheter placement and position ____ complications. The patient then will be returned to his bed on med 2 and will resume his preop medications, renal diet, etc. Blood loss during the procedure today was minimal, probably about 20 cc, all of which was lost during the HemoSplit insertion phase. No drain was used. All sponges, instruments and needles were accounted for and no surgical specimen was submitted for histopathology. I believe the patient will need to remain catheter dependent for hemodialysis, at least I do not think that he can support hemodialysis with the arterial supply from either upper extremity. Since he has already had one leg amputated, it seems unlikely that either of his lower extremities are likely to be a great source of arterial inflow for an AV graft. Also, I believe that his fourth finger will need to be amputated probably soon and that could be done by Dr. Triana. TRANSINT:[id number] Voice Confirmation ID: [id number] DOCUMENT ID: [id number] CHRIS LEE MD at 1659 CC: [id number] DICTATION DATE: 05/01/161741 SITE INTERPRETER: 05/01/162107 ADM IN [facility] [address] [id number]
--- NOTE | 2016-05-05 19:30 | NUR ---
AWAKE, ALERT VOICES NO C/O PAIN AT THIS TIME. HOB UP SR UP X2, C/L IN REACH. CONTINUE TO MONITOR.
[2016-05-05 21:39] VITALS: BP 185/42
[2016-05-06 00:46] VITALS: BP 129/63
[2016-05-06 04:00] VITALS: BP 96/75
[2016-05-06 09:21] VITALS: BP 164/79
--- NOTE | 2016-05-06 11:24 | NUR ---
Patient Name: SHERITA LOCKHART Encounter No: [id number] : 1950 Primary Insurance: MEDICARE A & B Anticipated DC Date: 05-06-2016 Planned Disposition: Long Term Facility External Planned Provider: [facility], MEDICARE REHAB BED DCP follow-up note: CM RECEIVED CALL FROM [facility] AT [facility], ASKING TO ARRANGE [facility] FOR THIS MORNING. BRIAR WOOD SORTER SPOKE TO DR. JENKINS WHO PROVIDED DISCHARGE ORDERS. [facility] SCHEDULED FOR ABOUT 1130AM TODAY. CM SPOKE TO PT IN ROOM WHO IS IN AGREEMENT WITH DISCHARGE TO [facility] TODAY AND WILL NOTIFY HIS SPOUSE. CM FAXED DISCHARGE INFORMATION TO [facility] AT [phone]. NURSE REPORT TO BE CALLED TO [facility] AT [phone]. [facility] VAN TRANSPORT TODAY AT OR AFTER 1130AM. STEVE RIVERA, CASE MANAGEMENT
--- NOTE | 2016-05-06 11:33 | NUR ---
REPORT CALLED TO GRADY GOLDEN AT [facility].
--- NOTE | 2016-05-06 11:35 | NUR ---
[facility] - Patient from [facility] TTS @ 11:30. OPHD notified to expect patient back in the clinic on . BMJeevan PRL.
[2016-05-06 12:28] VITALS: BP 162/74
--- NOTE | 2016-05-14 08:03 | OP ---
PATIENT NAME: SHERITA LOCKHART MEDICAL RECORD: [id number] :[birth year] LOCATION:D. D.2139 ADMISSION DATE:04/24/16 SURGEON: AILYN RAMÍREZ MD DATE OF OPERATION: 04/28/2016 PREOPERATIVE DIAGNOSIS: Right ischemic finger. POSTOPERATIVE DIAGNOSIS: Right ischemic finger. PROCEDURE PERFORMED: Right index finger ray amputation. SURGEON: Ernesto Ramírez MD ANESTHESIA: General. CONDITION: He tolerated the procedure well, was transferred to recovery room in stable condition at termination of procedure. INDICATIONS: This is a pleasant 65-year-old gentleman that has had significant problems with diabetes. He has end-stage renal disease. He has had index finger that has been ischemic for quite some time. He is unable to move the finger. He cannot feel the finger. This essentially ____ that has been in his way. We discussed the options. He wanted to go ahead and had it removed. We discussed risks, benefits, and alternatives including the fact that he may have further problems with his other digits and does have a little small area on the distal tip of his ring finger that is already showing signs of ischemia. After this discussion, he elected to proceed with the ray amputation. OPERATIVE REPORT: The patient was taken to the operating room, placed in a supine position. General anesthesia was obtained. Right hand was confirmed to be the correct hand. After he was asleep, I made an elliptical incision around the index finger, taking this down, taking it through the metacarpophalangeal joint. I then did have some small bleeders, which were cauterized. This area was copiously irrigated. It was then closed with 2-0 Vicryl, then 3-0 Prolene. He was placed in a soft dressing, awakened and transferred to recovery room in stable condition, having tolerated the procedure well. TRANSINT:[id number] Voice Confirmation ID: [id number] DOCUMENT ID: [id number] AILYN RAMÍREZ MD at 0803 CC: [id number] DICTATION DATE: 04/28/16 1307 VEHICLE MECHANIC: 04/28/16 1329 DIS IN 05/06/16 [place] [address]
== END 2016-05-06 12:33 | DRG 252 ==
LOC: D.ER 12:05 → D.M2 16:52
PROVIDERS: Emergency Medicine; Internal Medicine Nephrology; Orthopaedic Surgery Sports Medicine; ADMIT Internal Medicine Nephrology
PROC: 5A1D60Z (ICD-10-PCS; 2016-04-25)
PROC: 0X6N0Z3 Detachment at Right Index Finger, Low, Open Approach (ICD-10-PCS; principal; 2016-04-28 12:30)
PROC: 05L90ZZ Occlusion of Right Brachial Vein, Open Approach (ICD-10-PCS; 2016-05-01)
PROC: B51W1ZZ Fluoroscopy of Dialysis Shunt/Fistula using Low Osmolar Contrast (ICD-10-PCS; 2016-05-01)
PROC: 05HN33Z Insertion of Infusion Device into Left Internal Jugular Vein, Percutaneous Approach (ICD-10-PCS; 2016-05-01)
PROC: B5141ZA Fluoroscopy of Left Jugular Veins using Low Osmolar Contrast, Guidance (ICD-10-PCS; 2016-05-01)
PROC: B544ZZA Ultrasonography of Left Jugular Veins, Guidance (ICD-10-PCS; 2016-05-01)
DX: T82.898A Other specified complication of vascular prosthetic devices, implants and grafts, initial encounter (principal); N18.6 End stage renal disease; M87.844 Other osteonecrosis, right finger(s); I12.0 Hypertensive chronic kidney disease with stage 5 chronic kidney disease or end stage renal disease; D68.2 Hereditary deficiency of other clotting factors; I82.C21 Chronic embolism and thrombosis of right internal jugular vein; E11.22 Type 2 diabetes mellitus with diabetic chronic kidney disease; D63.1 Anemia in chronic kidney disease; Z91.19 Patient's noncompliance with other medical treatment and regimen; Y83.8 Other surgical procedures as the cause of abnormal reaction of the patient, or of later complication, without mention of misadventure at the time of the procedure; Z86.73 Personal history of transient ischemic attack (TIA), and cerebral infarction without residual deficits

== ENCOUNTER 2016-07-14 06:27 | Day surgery (SDC) | payer MEDICARE ==
[2016-07-14 11:29] LABS: BASOPHILS 0.2 % (0.0-2.0); EOSINOPHILS 4.2 % (0-7); HEMATOCRIT 30.8 % (42.0-54.0); HEMOGLOBIN 9.7 g/dL (13.5-17.5); IMMATURE GRANULOCYTES 0.2 % (0-5); LYMPHOCYTES 7.8 % (15-50); MCH 29.3 pg (26.0-34.0); MCHC 31.5 g/dL (31.0-37.0); MCV 93.1 fL (80.0-100.0); MEAN PLATELET VOLUME 9.1 fL (7.4-10.4); MONOCYTES 9.7 % (2-11); NEUTROPHILS 77.9 % (40-80); PLATELET COUNT 187 10x3/uL (130-400); RBC 3.31 10x6/uL (4.20-6.10); RDW 15.6 % (11.5-14.5); WBC 4.7 10x3/uL (4.8-10.8)
[2016-07-14 11:42] LABS: APTT 40.8 SECONDS (22.8-39.4); INR 2.42 (0.85-1.17); PROTIME 26.5 SECONDS (11.6-15.0)
[2016-07-14 11:49] LABS: ANION GAP 19.3 mmol/L (8-16); CALCIUM 9.4 mg/dL (8.5-10.1); CARBON DIOXIDE 24.4 mmol/L (21.0-32.0); CREATININE - SERUM 11.1 mg/dL (0.6-1.3); POTASSIUM - SERUM 3.7 mmol/L (3.5-5.1)
[2016-07-14] MEDS ORDERED: COUMADIN5 MG PO (13:01)
[2016-07-14] MEDS ORDERED: PLAVIX75 MG PO (13:02)
[2016-07-14 13:09] VITALS: BP 137/77; Ht 190.5 cm
[2016-07-14] MEDS ORDERED: HYDROCODONE-APA1 TAB PO (19:00)
--- NOTE | 2016-07-14 19:02 | NUR ---
LOCAL ADMIN INTRA OP. PATIENT REPORTS NO PAIN IN RR
--- NOTE | 2016-07-14 20:34 | NUR ---
PATIENT SITTING ON SIDE OF BED, THIS NURSE ASSISTS PATIENT TO DRESS IN PERSONAL CLOTHING. PATIENT C/O PAIN IN RIGHT HAND RATED AT 6 ON 0-10 SCALE, REQUESTS PAIN PILL. NORCO GIVEN PER EMAR. DISCHARGE INSTRUCTIONS REVIEWED WITH PATIENT AND BROTHER
--- NOTE | 2016-07-14 20:49 | NUR ---
PATIENT DISCHARGED VIA WHEELCHAIR TO PRIVATE VEHICLE WITH BROTHER AND [id number], ASSISTED PATIENT TO TRANSFER SAFELY INTO VEHICLE. PATIENT AWAKE AND ALERT AND EXPRESSES APPRECIATION FOR CARE
--- NOTE | 2016-07-17 07:08 | OP ---
PATIENT NAME: SHERITA LOCKHART MEDICAL RECORD: [id number] :54 LOCATION:DNOY ADMISSION DATE: SURGEON: AILYN RAMÍREZ MD DATE OF OPERATION: 07/14/2016 PREOPERATIVE DIAGNOSIS: Right ischemic ring finger. POSTOPERATIVE DIAGNOSIS: Right ischemic ring finger. PROCEDURE PERFORMED: Right fourth digit ray amputation. SURGEON: Ernesto Ramírez MD. ANESTHESIA: General with local. CONDITION: He tolerated the procedure well, was transferred to the recovery room in stable condition. INDICATIONS: This is a 66-year-old gentleman that has got significant diabetic peripheral vascular problems. He has had multiple amputations. His ring index finger amputated on this hand. His distal tip of his ring finger gotten progressively necrotic and a dry gangrene having digit pain. I discussed with him options. He wanted to have this finger amputated. I discussed the risks, benefits, alternatives. He is at high risk for further amputations and certainly he is getting enough complications. He certainly at high risk for . After discussion, he understood and wished to proceed with the surgery. OPERATIVE REPORT: The patient now replaced to supine position. General anesthesia was obtained. This was kept in light level by anesthesia. I then locally infiltrated his digit with 0.25% Marcaine and 2% lidocaine plain. I took this down, did a circumferential incision around the digit, did a cut into the metacarpal removing the ____ ray. I then copiously irrigated, then cut the nerves back following, which I closed with 2-0 Vicryl, then 3-0 Prolene, closing this gap. I closed back together nicely. I then proceeded to place him in a soft dressing and then a volar splint. He was awakened and transferred to the recovery room in stable condition, having tolerated the procedure well. TRANSINT:[id number] Voice Confirmation ID: [id number] DOCUMENT ID: [id number] AILYN RAMÍREZ MD at 0708 CC: [id number] DICTATION DATE: 07/14/16 1848 CLOTHING SALES ASSISTANT: 07/14/16 2[address] [facility] 07/14/16 [place] [id number]
== END 2016-07-14 20:49 | disposition home or self-care (01) ==
LOC: D.OPS 06:27 → D.PAN 13:30 → D.OPS 13:30
PROVIDERS: Anesthesiology
DX: E11.52 Type 2 diabetes mellitus with diabetic peripheral angiopathy with gangrene (principal); I25.10 Atherosclerotic heart disease of native coronary artery without angina pectoris; J44.9 Chronic obstructive pulmonary disease, unspecified; G47.30 Sleep apnea, unspecified; Z95.1 Presence of aortocoronary bypass graft; Z95.5 Presence of coronary angioplasty implant and graft; K21.9 Gastro-esophageal reflux disease without esophagitis; E11.22 Type 2 diabetes mellitus with diabetic chronic kidney disease; N18.6 End stage renal disease; Z99.2 Dependence on renal dialysis; D68.2 Hereditary deficiency of other clotting factors

== ENCOUNTER 2016-09-02 17:25 | Inpatient (IN) | payer MEDICARE ==
[~2016-09-02] VITALS: Ht 152.4 cm; Wt 90.7 kg
--- NOTE | ~2016-09-02 | HP ---
PATIENT: KEVIN LOCKHART MEDICAL RECORD: [id number] ACCOUNT: [id number] LOCATION:[address] : [birth year] ADMISSION DATE: 09/02/16 HISTORY AND PHYSICAL EXAMINATION CHIEF COMPLAINT: Ischemic fingers on left hand. HISTORY OF PRESENT ILLNESS: Mr. Lockhart is a pleasant 66-year-old -French male with end-stage renal disease. He has been dealing with ischemic fingers on his left hand, the index and middle finger, for several weeks. He has not had the money to have his followup appointment with Dr. Triana for evaluation and now, his fingers are becoming dry and gangrenous. He has had a blood culture and that was negative at his regular [facility] unit. He will now be admitted for amputation of dry gangrene fingers. PAST MEDICAL HISTORY: 1. End-stage renal disease, has been on hemodialysis since July 2011. He had his access tied off last year after having ischemic fingers on his right hand. He is now catheter-dependent by Dr. Alvarado. 2. Diabetes mellitus. 3. Hypertension. 4. Congestive heart failure with atrial fibrillation and coronary heart disease. He is followed regularly at the [facility] in [place]. 5. Severe peripheral vascular disease, status post bilateral amputations of his lower extremities and several amputations of fingers on his right hand. 6. Anemia of chronic renal disease. 7. History of adrenal nodules per CT of his abdomen in October 2011, left adrenal nodule was 2.4 cm. 8. History of factor VII deficiency with previous workup by Lucian Dunn in [place] and Dr. Carrington in [place]. 9. History of GI bleed. 10. History of CVA. 11. History of cataracts with lens implant. 12. History of COPD, previously on CPAP. ALLERGIES: No known allergies. PAST SURGICAL HISTORY: As above including penile prosthesis in the past. CURRENT MEDICATIONS: Hydrocodone 7.5/325 q.4 hours p.r.n., Hectorol 5 mcg 3 times per week, Epogen 12,000 units 3 times per week, Venofer 50 mg q. weekly, Tums 3000 mg 3 times per day with meals, paroxetine 20 mg daily, ropinirole 2 mg at bedtime, aspirin 325 mg daily, lisinopril 10 mg b.i.d., Sensipar 60 mg daily, Restoril 15 mg ____ sleep p.r.n., Coumadin 2 mg daily, isosorbide 30 mg daily; nifedipine 90 mg on Wednesday, Wednesday, Wednesday; carvedilol 25 mg b.i.d., gabapentin 100 mg t.i.d., Zofran 4 mg q.8 hours p.r.n., Protonix 40 mg daily, Colace 100 mg b.i.d., Aricept 5 mg at bedtime. FAMILY HISTORY: Includes hypertension, coronary artery disease and renal history. SOCIAL HISTORY: Long history of tobacco use. No alcohol. REVIEW OF SYSTEMS: He complains of fatigue, weakness and anxiety, occasional HISTORY AND PHYSICAL [id number] ATKINSMARIANOKEVIN headache. He has occasional mental status change as well, some orthopnea. He has some occasional nausea and emesis. He has chronic kidney disease, on hemodialysis. He complains of some thirsting and shortness of breath with some cough. He complains of decreased motility due to his bilateral lower extremity amputations. He complains of pain to his left hand. He is catheter-dependent. PHYSICAL EXAMINATION: VITAL SIGNS: Temperature 96.8, heart rate 87, and blood pressure 126/69. GENERAL: Well-developed, well-nourished black male, in no acute distress. HEENT: Pupils are equal, reactive to light and accommodation. NECK: No JV distention, carotid bruit or thyromegaly. HEART: Regular rate and rhythm without murmur, rub or gallop. RESPIRATORY: No acute distress. Breath sounds are normal. ABDOMEN: Nontender and nondistended. NEUROLOGIC: Awake, alert and oriented. EXTREMITIES: Bilateral lower extremity amputations with amputation to several fingers on his right hand and dry gangrene on his left index and middle finger. ASSESSMENT AND PLAN: 1. Severe peripheral vascular disease with dry gangrene to his left hand. We will consult surgery and Dr. Triana, who amputated his previous fingers on right hand. 2. End-stage renal disease, on hemodialysis. Continue dialysis Wednesday, Wednesday and Wednesday. 3. Anemia of chronic renal disease. Check CBC, continue Epogen and Venofer if prolonged hospitalization. 4. Hypertension. Continue current home medications. 5. Acquired factor VII deficiency. Check PTT, PT, INR and H&H as well as platelets. 6. Diabetes mellitus. Check fingerstick blood sugars q.a.c. and h.s. with sliding scale coverage and renal ADA diet as well. DISPOSITION: Niece is his primary caregiver and is considering assisted. Kevin is hesitant due to their bad food at the assisted. His is currently in a assisted. TRANSINT:[id number] Voice Confirmation ID: [id number] DOCUMENT ID: [id number] Dictated By: RICK ODOM RN I have interviewed/examined the above patient and agree with these documented findings. MAYA REYNA MD CC: [id number] DICTATION DATE: 09/02/16 1338 DIGITAL PERFORMANCE ANALYST: 09/02/16 1517 ADM IN [facility] [address] [id number]
--- NOTE | ~2016-09-02 | OP ---
PATIENT NAME: SHERITA LOCKHART MEDICAL RECORD: [id number] :54 LOCATION:D. D.2133 ADMISSION DATE:09/02/16 SURGEON: AILYN RAMÍREZ MD DATE OF OPERATION: 09/04/2016 PREOPERATIVE DIAGNOSIS: Ischemic left third and fourth digits with dry gangrene and pain down to the MCP joint. POSTOPERATIVE DIAGNOSIS: Ischemic left third and fourth digits with dry gangrene and pain down to the MCP joint. PROCEDURE PERFORMED: The left hand third and fourth ray amputations. SURGEON: Ernesto Ramírez MD ANESTHESIA: TIVA with local with a block. CONDITION: He tolerated the procedure well, was transferred to the recovery room in stable condition. INDICATION: This is a 66-year-old gentleman, who has had multiple medical problems and he is on dialysis, as well as with ischemic problems with his digits especially lately, the third and fourth had since last time we saw him and he presents for amputation of them. We discussed risks, benefits, and alternatives including further finger loss. He understood and wished to proceed. OPERATIVE REPORT: The patient was taken to the operating room and placed in supine position. General anesthesia was obtained. His third and fourth digits were identified as correct digits. His hand was prepped and draped in normal fashion. I then proceeded to do an amputation, splitting down the middle, doing circumferential incision around the third and fourth digits and then metatarsal cut through the metatarsal at about mid metatarsal and on the third and fourth digits. These were then removed. It was cauterized and then was able to bring it back together making it actually fairly well close with 2 digits. It was irrigated prior to closure. He was placed in a volar splint, awakened and transferred to the recovery room in stable condition, having tolerated the procedure well. TRANSINT:[id number] Voice Confirmation ID: [id number] DOCUMENT ID: [id number] AILYN RAMÍREZ MD CC: [id number] DICTATION DATE: 09/04/16932 MAKE UP MAN: 09/04/161932 ADM IN [facility] [address] [id number]
[~2016-09-02 17:25] MED LIST changes: +HYDROCODONE-APA1 TAB PO
[2016-09-02 18:50] VITALS: BP 144/81; BMI 39.1
[2016-09-02 20:00] VITALS: BP 130/59
--- NOTE | 2016-09-02 20:25 | NUR ---
PT LYING IN BED ON LEFT SIDE, EYES CLOSED, RESPIRATIONS EVEN AND UNLABORED. PT IS EASILY ROUSABLE TO VERBAL STIMULI, C/O PAIN. WILL GIVE PRN PAIN RX, AND CONTINUE TO MONITOR CLOSELY. PT REQUESTED HIS WHEELCHAIR TO BE PLACED NEXT TO HIS BED, DENIES ANY OTHER NEEDS.
--- NOTE | 2016-09-02 22:06 | NUR ---
PT UP TO WHEELCHAIR WITHOUT ANY ASSIST. PT DENIES ANY ACUTE NEEDS AT THIS TIME. WILL CONTINUE TO MONITOR CLOSELY.
[2016-09-02 23:00] VITALS: BP 147/73
--- NOTE | 2016-09-03 01:10 | NUR ---
PT HAD A BOUT OF NAUSEA WITH SUBSTANTIAL VOMITING, CLEAR FOOD PARTICLES, INCREASED AMOUNT OF TOMATO PIECES PRESENT. PT CLEANED UP, ROOM CLEANED, LINEN CHANGED. PT IS AWAKE, ALERT, ORIENTED, SITTING UP IN HIS WHEELCHAIR WIPING HIMSELF DOWN WITH A WASHCLOTH. CONTINUE TO MONITOR CLOSELY.
--- NOTE | 2016-09-03 04:40 | NUR ---
PT LYING IN BED ON LEFT SIDE, EYES CLOSED, RESPIRATIONS EVEN AND UNLABORED. PT DENIES ANY MORE NAUSEA. CONTINUE TO MONITOR CLOSELY. BED LOW, CALL LIGHT IN REACH, SIDE RAILS X 2, HOB 35 DEGREES.
[2016-09-03 05:10] VITALS: BP 178/88
[2016-09-03 05:36] LABS: BASOPHILS 0.2 % (0-2); EOSINOPHILS 6.8 % (0-7); HEMOGLOBIN 9.5 g/dL (13.5-17.5); IMMATURE GRANULOCYTES 0.2 % (0-5); LYMPHOCYTES 10.6 % (15-50); MCH 28.2 pg (26.0-34.0); MCHC 30.6 g/dL (31.0-37.0); MEAN PLATELET VOLUME 9.9 fL (7.4-10.4); MONOCYTES 10.6 % (2-11); NEUTROPHILS 71.6 % (40-80); PLATELET COUNT 210 10x3/uL (130-400); RBC 3.37 10x6/uL (4.20-6.10); RDW 16.2 % (11.5-14.5); WBC 4.8 10x3/uL (4.8-10.8)
[2016-09-03 05:45] LABS: APTT 55.9 SECONDS (22.8-39.4); INR 2.23 (0.85-1.17); PROTIME 24.8 SECONDS (11.6-15.0)
[2016-09-03 06:27] LABS: ALBUMIN 2.5 g/dL (3.4-5.0); ANION GAP 14.8 mmol/L (8-16); BILIRUBIN - TOTAL 0.43 mg/dL (0.2-1.3); CALCIUM 9.1 mg/dL (8.5-10.1); CARBON DIOXIDE 27.8 mmol/L (21.0-32.0); CREATININE - SERUM 10.1 mg/dL (0.6-1.3); MAGNESIUM - SERUM 1.7 mg/dL (1.8-2.4); POTASSIUM - SERUM 3.6 mmol/L (3.5-5.1); PROTEIN - SERUM 6.9 g/dL (6.4-8.2)
[2016-09-03 07:44] VITALS: BP 154/85
--- NOTE | 2016-09-03 11:30 | NUR ---
LEFT CHEST HEMESPLIT DRESSING CHANGED USING STERILE TECHNIQUE, BIOPATCH IN PLACE, DRESSSING ADHERED TO SKIN DATED AND INITIALLED
[2016-09-03 12:31] VITALS: Ht 152.4 cm; Wt 90.7 kg
[2016-09-03 12:51] VITALS: BP 140/69
--- NOTE | 2016-09-03 14:38 | NUR ---
OLD DRESSING FROM LEFT BKA STUMP REMOVED. WOUND SUPERFICIAL ALMOST FULLY HEALED. WOUND CARE NURSE AT BEDSIDE TO ASSESS AND MAKE DRSG CHANGE ORDERS, SEE WOUND CARE NOTES FOR FURTHER DETAIL. CLEANSED WITH STA CLEANSE AND 4X4'S, ABD PAD APPLIED, WRAP WITH 2 CAITLIN AND SPANDAGE
--- NOTE | 2016-09-03 14:44 | NUR ---
WOUND CARE CONSULT: PT HAS OPEN WOUND ON L STUMP MEASURING 4CM X 5CM. WOUND BED IS PALE PINK. THERE IS NO ODOR, EDEMA OR REDNESS. SMALL AMOUNT OF SEROUS DRAINAGE. RECOMMEND CLEANING DAILY WITH [employer] AND APPLYING DRY DRESSING. LEFT #3AND#4 FINGERS ARE NECROTIC/BLACK/DRIED. SURGERY IS SCHEDULED FOR THIS TOMORROW. WOUND CARE CONTINUES TO FOLLOW/
--- NOTE | 2016-09-03 14:52 | NUR ---
IV access-20 gauge inserted in right hand for access. Melani Morgan RN
[2016-09-03 16:26] VITALS: BP 115/52
--- NOTE | 2016-09-03 17:25 | NUR ---
Patient Name: SHERITA LOCKHART Admission Status: Urgent Accout number: [id number] Admission Date: 09-02-2016 : 1950 Admission Diagnosis: Attending: GABRIELLE Current LOS: 1 Anticipated DC Date:09-07-2016 Planned Disposition: Long-Term Facility Primary Insurance: MEDICARE A & B PLANNED EXTERNAL PROVIDER: [facility], MEDICARE REHAB BED Discharge Planning Comments: * Is the patient Alert and Oriented? Yes 0 * How many steps to enter\exit or inside your home? NONE 0 * PCP DR. WENDY HARLEY 0 * [facility]acy [facility] [place] 0 * Preadmission Environment Home with Family 0 * ADLs Independent 0 * Equipment Glucometer Other Oxygen 0 Wheelchair * Other Equipment INOPERATIVE HOOVERROUND SCOOTER UNKNOWN MEDICAL EQUIPMENT PROVIDER IN [place] 0 * List name and contact numbers for known caregivers / representatives who currently or will assist patient after discharge: ALEXANDER LAWLER, SPOUSE, (CURRENTLY IN [facility] IN [place] 0 * Community resources currently utilized Home Health Other 0 * Please name any agencies selected above. [facility] OUTPATIENT DIALYSIS, [facility], T/T/S, 1030AM, [facility] TRANSPORT 0 * Additional services required to return to the preadmission environment? Yes * Can the patient safely return to the preadmission environment? Yes 0 * Has this patient been hospitalized within the prior 30 days at any hospital? No 0 CM RECEIVED ORDER FOR REHAB PLACEMENT. CM MET WITH PT IN ROOM TO DISCUSS DISCHARGE PLANNING AND NEEDS. PT REPORTS LIVING AT HOME INDEPENDENTLY AND ALONE RIGHT NOW HIS HAS BEEN IN THE [facility] IN [place]. PT HAS A BROKEN DOWN SCOOTER, HOME OXYGEN, WHEELCHAIR AND GLUCOMETER WITH UNKNOWN MEDICAL EQUIPMENT APROVIDER IN [place]. PT HAS HOME HEALTH WITH [facility] AT THIS TIME. CM DISCUSSED REHAB PLACEMENT ORDER, AVAILABILITY OF HOME HEALTH, REHAB SERVICES AND MEDICAL EQUIPMENT. PT WANTS PLACEMENT FOR REHAB AT [facility] AND IS CONSIDERING [facility] [facility]. THE .NET PROGRAMMER IS HELPING PT GET HIS MEDICAID RESTARTED. CHOICE SIGNED FOR [facility]. CM FAXED REFERRAL TO [facility], . CM WAITING ADMISSION DETERMINATION FROM [facility] IN [place] FOR REHAB PLACEMENT AND POSSIBLE PENITENTIARY CARE. Adult Education Teacher: Ian Brown
[2016-09-03 19:00] VITALS: BP 144/69
--- NOTE | 2016-09-03 19:25 | NUR ---
RECEIVED REPORT, PT COMPLAINS OF PAIN, WILL GIVE NORCO, BED IS LOW, SRX2, CALL LIGHT IN REACH, WILL MONITOR
--- NOTE | 2016-09-03 20:15 | NUR ---
CONSENT ARE SIGNED
[2016-09-03 23:00] VITALS: BP 143/68
--- NOTE | 2016-09-04 04:38 | NUR ---
ASSESSMENT COMPLETE, SEE FLOWSHEET, BED IS LOW, SRX3, CALL LIGHT IN REACH, WILL MONITOR
--- NOTE | 2016-09-04 05:37 | NUR ---
WILL CONTINUE WITH PLAN OF CARE, CALL LIGHT IN REACH.
[2016-09-04 06:42] VITALS: BP 154/81
[2016-09-04 07:56] VITALS: BP 177/67
--- NOTE | 2016-09-04 08:14 | NUR ---
AM ROUNDING- RECEIVED REPORT FROM SOLID PROPELLANT PROCESSOR NURSE FRANKO. PT IS CURRENTLY GOING FOR PROCEDURE NOW. FRANKO SOLID PROPELLANT PROCESSOR NURSE GAVE PT PRE-OP MEDICATIONS AND DID PRE-PROCEDURE CHECKLIST. WILL AWAIT TO RETURN AND CONTINUE TO MONITOR.
--- NOTE | 2016-09-04 09:56 | NUR ---
RECEIVED REPORT FROM DUSTY IN RECOVERY. AWAITING PT ARRIVAL.
--- NOTE | 2016-09-04 10:12 | NUR ---
RECEIVED PT VIA BED FROM KAUSHIK IN RECOVER. WILL START FREQUENT VITALS PER POLICY AND CONTINUE TO MONITOR.
[2016-09-04 10:15] VITALS: BP 150/78
--- NOTE | 2016-09-04 10:48 | NUR ---
PT TO DIALYSIS VIA BED.
--- NOTE | 2016-09-04 13:04 | NUR ---
1040- UNABLE TO FINISH FREQUENT VITAL SIGNS (AFTER PROCEDURE) DUE TO PT GOING TO DIALYSIS. DIALYSIS TAKES VITAL SIGNES Q15MIN.
--- NOTE | 2016-09-04 13:39 | NUR ---
PT BACK FROM DIALYSIS VIA BED.
[2016-09-04 15:42] VITALS: BP 158/86
--- NOTE | 2016-09-04 17:24 | NUR ---
PT IS CURRENTLY LAYING IN BED ON LEFT SIDE WITH EYES CLOSED RESTING. NO NEED AT CURRENT TIME. WILL CONTINUE TO MONITOR.
[2016-09-04 20:21] VITALS: BP 157/76
--- NOTE | 2016-09-04 21:44 | NUR ---
INITIAL ROUNDS COMPLETED AT 1920 HRS. PT STATES NOTCO NOT HELPING MUCH. VAGUE REPLY. ASSESSMENT COMPLETED AT 1945 HRS. VSS. IV TO R HADN SL. L CHEST HEMOSPLIT CLEAN, DRY AND INTACT. BILAT BKA NOTED. DRESSING TO L STUMP CLEAN AND DRY. BANDAGE TO L HAND CLEAN, DRY AND INTACT. REFUSES TO WEAR SLING. LUNGS CTA. PM MEDS GIVEN. PT REFUSES FSBS. PT CURRENTLY WATCHING TV. WILL CONTINUE TO MONITOR. SR UP X2, CALL LIGHT WITHIN REACH.
--- NOTE | 2016-09-04 23:43 | NUR ---
PT STATES NORCO NOT TOUCHING PAIN. RENAL SERVICES PAGED.
--- NOTE | 2016-09-05 00:12 | NUR ---
RENAL SERVICES REPAGED.
[2016-09-05 00:28] VITALS: BP 163/78
--- NOTE | 2016-09-05 01:12 | NUR ---
RENAL SERVICES PAGED AGAIN. PT REMOVED CLIFF WRAP TO L HAND. REFUSES TO ALLOW HAND/ARM TO BE REWRAPPED. L ARM ELEVATED ON PILLOWS. WILL CONTINUE TO MONITOR.
--- NOTE | 2016-09-05 01:40 | NUR ---
RENAL SERVICES PAGED AGAIN.
--- NOTE | 2016-09-05 02:10 | NUR ---
BUPRENEX 0.2MG SIVP GIVEN FOR C/O PAIN. PT PLACED ON TELE. SR HR 90 WITH 1ST DEGREE AV BLOCK. WILL CONTINUE TO MONITOR.
--- NOTE | 2016-09-05 02:26 | NUR ---
BED ALARM PLACED. RATIONALE EXPLAINED TO PT. STATED UNDERSTANDING.
--- NOTE | 2016-09-05 03:15 | NUR ---
S WIT 1ST DEGREE AV BLOCK HR 0 PER CM. PT REMOVED SPLINT AND CLIFF WRAP FORM L HAND AND ARM. SPLINT REPLACED AND L HAND REWRAPPED LIGHTLY. NOW HAS C/O NAUSEA. RENAL SERVICES PAGED.
--- NOTE | 2016-09-05 03:41 | NUR ---
Morena SAUER CUSTOMER TRAINING SPECIALIST RETURNS PAGE AT 0325 HRS. INFORMED OF PT'S C/O NAUSEA, REFUSAL TO CHECK BLOOD SUGAR, POTENTIAL INTERACTIONS BETWEEN BUPRENEX AND CORDARONE, PT PLACED ON TELE AND CURRENT HR AND RHYTHM AND OVERALL STATUS. NEW ORDERS RECEIVED AND NOTED.
[2016-09-05 04:13] VITALS: BP 131/66
--- NOTE | 2016-09-05 04:46 | NUR ---
PT SITTING ON SIDE OF BED. REFUSES TO LIE DOWN. NO DISTRESS NOTED. BOX ALARM IN USE.
--- NOTE | 2016-09-05 05:59 | NUR ---
VSS THROUGHOUT NIGHT. PT DENIES ANY DISCOMFORT AT THIS TIME. NEEDS MET; WILL CONTINUE TO MONITOR.
--- NOTE | 2016-09-05 07:42 | NUR ---
AM ROUNDING- RECEIVED REPORT FROM TECHNICAL SPECIALIST CYTOGENETICS NURSE ALANNA. PT IS CURRENTLY LAYING IN BED ON RIGHT SIDE WITH EYES OPEN RESTING. ON MONITOR SHOWING ST, HR 112 WITH FIRST DEGREE BLOCK (PER HOMAR WITH TELEMETRY). ON ROOM AIR. IV SEEN TO RIGHT HAND THAT IS CURRENTLY SALINE LOCKED. LEFT CHEST HEMOSPLIT SEEN. CLEAN, DRY, AND INTACT DRESSING SEEN TO LEFT ARM. CLEAN, DRY, AND INTACT DRESSING SEEN TO LEFT BKA. RIGHT BKA SEEN. BED BOX ALARM IS ON AND SIDE RAILS ARE UP X2. NO NEED AT CURRENT TIME. WILL CONTINUE TO MONITOR AND CONTINUE WITH PLAN OF CARE.
[2016-09-05 08:36] VITALS: BP 139/83
[2016-09-05 11:16] LABS: BASOPHILS 0.3 % (0-2); EOSINOPHILS 2.3 % (0-7); HEMOGLOBIN 9.8 g/dL (13.5-17.5); IMMATURE GRANULOCYTES 0.2 % (0-5); LYMPHOCYTES 5.9 % (15-50); MCH 28.4 pg (26.0-34.0); MCHC 30.6 g/dL (31.0-37.0); MCV 92.8 fL (80.0-100.0); MEAN PLATELET VOLUME 9.4 fL (7.4-10.4); MONOCYTES 8.7 % (2-11); NEUTROPHILS 82.6 % (40-80); PLATELET COUNT 221 10x3/uL (130-400); RBC 3.45 10x6/uL (4.20-6.10); WBC 6.1 10x3/uL (4.8-10.8)
[2016-09-05 11:23] LABS: ANION GAP 16.2 mmol/L (8-16); CALCIUM 9.4 mg/dL (8.5-10.1); CREATININE - SERUM 10.4 mg/dL (0.6-1.3); POTASSIUM - SERUM 4.2 mmol/L (3.5-5.1)
[2016-09-05 11:28] VITALS: BP 140/76
--- NOTE | 2016-09-05 14:25 | NUR ---
CHANGED PTS DRESSING TO LEFT BKA AREA. MEASUREMENTS ARE 5CM X 4CM. PINK EDGES SEEN. NO DRAINAGE. ESCHAR TISSUE SEEN IN MIDDLE OF WOUND BED. CLEANED WOUND WITH MICRO KLENZ AND COVERED WOUND WITH BORDERED GAUZE PAD. WRAPPED WOUND WITH KERLIX. TOLERATED WELL. WILL CONTINUE TO MONITOR.
[2016-09-05 17:04] VITALS: BP 141/66
--- NOTE | 2016-09-05 17:33 | NUR ---
PT IS CURRENTLY SITTING UP ON SIDE OF BED EATING DINNER TRAY. PT DENIES ANY NEED AT CURRENT TIME. WILL CONTINUE TO MONITOR.
--- NOTE | 2016-09-05 19:49 | NUR ---
RESUMED CARE OF PT, PT SITTING ON SIDE OF BED, DENIES ANY NEEDS AT THIS TIME, BED IS LOW, SRX2, BOX ALARM IS ATTACH, CALL LIGHT IN REACH, WILL CONTINUE CARE OF PLAN
[2016-09-05 20:32] VITALS: BP 150/66
[2016-09-06] VITALS (7 sets, daily range): BP systolic 118–182; BP diastolic 45–71
--- NOTE | 2016-09-06 00:20 | NUR ---
DAY CARE AIDE AT BED SIDE TO OBTAIN VITALS. WILL CONT PLAN OF CARE.
--- NOTE | 2016-09-06 03:09 | NUR ---
ASSESSMENT COMPLETE, SEE FLOWSHEET, PT SITTING UP ON SIDE OF BED, DENIES ANY NEEDS, CALL LIGHT IN REACH, WILL CONTINUE PLAN OF CARE
[2016-09-06 06:29] LABS: HEMATOCRIT 30.6 % (42.0-54.0); HEMOGLOBIN 9.4 g/dL (13.5-17.5); MCH 28.5 pg (26.0-34.0); MCHC 30.7 g/dL (31.0-37.0); MCV 92.7 fL (80.0-100.0); MEAN PLATELET VOLUME 9.4 fL (7.4-10.4); RBC 3.3 10x6/uL (4.20-6.10); RDW 16.3 % (11.5-14.5); WBC 5.4 10x3/uL (4.8-10.8)
[2016-09-06 06:39] LABS: ANION GAP 16.6 mmol/L (8-16); CALCIUM 8.8 mg/dL (8.5-10.1); CARBON DIOXIDE 27.4 mmol/L (21.0-32.0); CREATININE - SERUM 12.2 mg/dL (0.6-1.3)
--- NOTE | 2016-09-06 14:40 | NUR ---
ALERT AND ORIENTED X4. SITTING UP ON SIDE OF BED. ASSIST WITH SHAVING FACIAL HAIR PER PATIENT REQUEST. LT LEG DRESSING CHANGED. DENIES FINGER STICKS. PATIENT STATES, "I AM NOT DIABETIC." DENIES ANY NEEDS. CONTINUE PLAN OF CARE AND SAFETY PRECAUTIONS.
--- NOTE | 2016-09-06 16:56 | NUR ---
ALERT AND ORIENTED X4. REFUSE FSBS. LT BKA DRESSING FOUND OFF LYING ON BED. CLEAN WOUND. DRESSING REPLACED PER ORDER. DENIES ANY NEEDS. CONTINUE PLAN OF CARE AND SAFETY PRECAUTIONS.
--- NOTE | 2016-09-06 20:08 | NUR ---
INITIAL ROUNDS COMPLETED AT 1915 HRS. PT RESTING WITH EYES CLOSED. RESP EVEN AND REGULAR. ASSESSMETN COMPLETED AT 1950 HRS. IV TO R HADN SL. L CHEST HEMOSPLIT CLEAN, DRY AND INTACT. LUNGS DIMINISHED IN BASES BILAT. O2 2LNC. BILAT BKA. DRESSING TO LBKA CLEAN, DRY AND INTACT. 2ND AND 3RD DIGIT OF R HAND MISSING. DRESSING TO L HAND/ LOWER ARM CLEAN, DRY AND INTACT WITH SPLINT INTACT. L THUMB NAIL PINK WITH BRISK CAP REFILL. L HAND WARM TO TOUCH. BOX ALARM ON. WILL CONTINUE TO MONITOR. S RUP X2, CALL LIGHT WITHIN REACH.
--- NOTE | 2016-09-06 22:03 | NUR ---
VSS. PT REFUSED FSBS. PM MEDS GIVEN. PM SNACK SERVED. WILL CONTINUE TO MONITOR. BOX ALARM ON.
--- NOTE | 2016-09-06 23:38 | NUR ---
PT AWAKE; DENIES ANY DISCOMFORT. BED ALARM ON. CALL LIGHT WITHIN REACH.
--- NOTE | 2016-09-07 01:45 | NUR ---
PT RESTING WITH EYES CLOSED. RESP EVEN AND REGULAR. SR UP X2, CALL LIGHT WITHIN REACH AND BOX ALARM ON.
--- NOTE | 2016-09-07 03:23 | NUR ---
BEDBATH DONE. BED LINENS CHANGED. PT TOLERATED ACTIVITY WELL. WILL CONTINUE TO MONITOR.
--- NOTE | 2016-09-07 04:17 | NUR ---
NORCO 10/325 PO GIVEN FOR C/O L HAND INCISIONAL PAIN. WILL CONTINUE TO MONITOR.
--- NOTE | 2016-09-07 05:43 | NUR ---
VSS THROUGHOUT NIGHT. PT STATES NORCO NOT REALLY HELPING PAIN. NEEDS MET; WILL CONTINUE TO MONITOR.
[2016-09-07 06:05] VITALS: BP 145/65
[2016-09-07 06:13] LABS: BASOPHILS 0.2 % (0-2); HEMATOCRIT 27.3 % (42.0-54.0); HEMOGLOBIN 8.5 g/dL (13.5-17.5); IMMATURE GRANULOCYTES 0.2 % (0-5); LYMPHOCYTES 7.4 % (15-50); MCH 28.3 pg (26.0-34.0); MCHC 31.1 g/dL (31.0-37.0); MEAN PLATELET VOLUME 9.1 fL (7.4-10.4); MONOCYTES 8.2 % (2-11); PLATELET COUNT 209 10x3/uL (130-400); RDW 16.2 % (11.5-14.5)
[2016-09-07 06:42] LABS: ANION GAP 18.8 mmol/L (8-16); CALCIUM 7.6 mg/dL (8.5-10.1); CARBON DIOXIDE 25.2 mmol/L (21.0-32.0); CREATININE - SERUM 13.2 mg/dL (0.6-1.3)
[2016-09-07 08:28] VITALS: BP 176/78
--- NOTE | 2016-09-07 09:30 | NUR ---
ALERT AND ORIENTED X4. TAKEN TO DIALYSIS VIA BED. 'S NURSE CAME TO ASSESS LT HAND INCISIONS AND REDRESS. CONTINUE PLAN OF CARE AND SAFETY PRECAUTIONS.
--- NOTE | 2016-09-07 09:36 | NUR ---
DIALYSIS COORDINATOR: [facility]: [facility] Tues/jono/Sat @ 10:30am. Medical records forwarded to the home unit for their records. SOPHY VELA.
--- NOTE | 2016-09-07 10:15 | NUR ---
Patient Name: SHERITA LOCKHART Encounter No: [id number] : 1950 Primary Insurance: MEDICARE A & B Anticipated DC Date: 09-07-2016 Planned Disposition: HOME WITH HOME HEALTH External Planned Provider: [facility] DCP follow-up note: CM RECEIVED DISCHARGE ORDER, FAXED UPDATE TO [facility]. CM MET WITH PT IN ROOM AND DISCUSSED DISCHARGE PLANNING. PT REPORTS HE WANTS TO GO HOME TODAY, NOT TO REHAB. PT REPORTS HE WANTS HOME HEALTH AND TO CALL [facility] AT [phone], TO RESUME HIS HOME CARE. PT ASKED CM TO ARRANGE SCAT BUS TO GET HIM HOME, REPORTS ABILITY TO GET ON THE BUS AND RIDE INDEPENDENTLY; REPORTS HAVING [facility] TO PAY FOR TRANSPORT HOME TODAY. IMPORTANT MESSAGE FROM MEDICARE PROVIDED AND EXPLAINED. CM CALLED [facility] AT [facility], , CANCELLED REHAB REQUEST. CM CALLED [facility], , SPOKE TO CARLTON AND VERIFIED PT'S ACTIVE AND HOLD STATUS WITH [facility], NOTIFIED OF DISCHARGE TODAY FOR RESUMPTION OF HOME HEALTH WITH ADDITION OF WOUND CARE. CM FAXED REFERRAL AND DISCHARGE INFORMATION TO [facility] AT [phone]. CM CALLED [facility] TRAN[facility] (MEDICAID), , SCHEDULE [facility] PAY SCAT TRANSPORT LITIGATION LEGAL ASSISTANT FOR AFTER NOON TODAY. SCAT WILL CALL NURSES STATION JUST PRIOR TO ARRIVAL FOR PT'S LITIGATION LEGAL ASSISTANT; PT COSTS $28.50. Sales Marketing: Ian Brown
[2016-09-07 13:42] VITALS: BP 135/72
--- NOTE | 2016-09-07 15:16 | NUR ---
ALERT AND ORIENTED X4. DC RT HAND IV TIP INTACT. DISCHARGE INSTRUCTIONS GIVEN VERBALLY AND WRITTEN. DISCHARGE PAPERS SIGNED ON CHART. [facility] BUS ARRIVE FOR TRANSPORTATION. ESCORT TO RIDE VIA PERSONAL WHEELCHAIR.
== END 2016-09-07 15:34 | disposition home health service (06) | DRG 255 ==
LOC: D.M2 17:25
PROVIDERS: Internal Medicine; Orthopaedic Surgery; Orthopaedic Surgery Sports Medicine; ADMIT Internal Medicine Nephrology
PROC: 0X6T0Z1 Detachment at Left Ring Finger, High, Open Approach (ICD-10-PCS; 2016-09-04)
PROC: 0X6W0Z1 Detachment at Left Little Finger, High, Open Approach (ICD-10-PCS; principal; 2016-09-04 08:00)
DX: E11.52 Type 2 diabetes mellitus with diabetic peripheral angiopathy with gangrene (principal); N18.6 End stage renal disease; I13.2 Hypertensive heart and chronic kidney disease with heart failure and with stage 5 chronic kidney disease, or end stage renal disease; I70.268 Atherosclerosis of native arteries of extremities with gangrene, other extremity; E11.22 Type 2 diabetes mellitus with diabetic chronic kidney disease; I50.9 Heart failure, unspecified; Z99.2 Dependence on renal dialysis; I48.91 Unspecified atrial fibrillation; Z89.511 Acquired absence of right leg below knee; I25.10 Atherosclerotic heart disease of native coronary artery without angina pectoris; D63.1 Anemia in chronic kidney disease; Z86.73 Personal history of transient ischemic attack (TIA), and cerebral infarction without residual deficits; J44.9 Chronic obstructive pulmonary disease, unspecified

== ENCOUNTER 2016-10-19 16:35 | Inpatient (IN) | payer MEDICARE ==
[~2016-10-19] VITALS: Ht 152.4 cm; Wt 90.3 kg
--- NOTE | 2016-10-19 16:56 | NUR ---
Dialysis Coordinator: [facility]: Patient from [facility]. Mikayla/Rajiv/Sat @ 10:30. Medical records will be forwarded when available. SOPHY VELA.
[2016-10-19 17:25] VITALS: BP 116/62; BMI 41.8
--- NOTE | 2016-10-19 17:57 | NUR ---
ARRIVED FROM [place] [facility] [employer]. PT IS A BKA WITH DRESSING ON ANDRE STUMPS. ALSO A DRESSING ON HIS LEFT HAND. FISTULAS ARE PRESENT IN ANDRE ARMS BUT NOT USED FOR DIALYSIS. 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 CO PAIN IN HAND. PIV IN R AC 20 G THAT WAS STARTED BY AMBULANCE. BLOOD CONSENT SIGNED. WILL CONTINUE TO MONITOR.
--- NOTE | 2016-10-19 19:50 | NUR ---
PT LYING IN BED, EYES CLOSED, RESPIRATIONS EVEN AND UNLABORED, EASILY ROUSABLE TO VERBAL STIMULI. DENIES ANY NEEDS. CONTINUE TO MONITOR CLOSELY.
[2016-10-19 20:14] LABS: HEMATOCRIT 21.8 % (42.0-54.0)
[2016-10-19 20:16] VITALS: BP 115/50
[2016-10-19 20:27] LABS: HEMOGLOBIN 6.6 g/dL (13.5-17.5)
[2016-10-20 00:15] VITALS: BP 110/52
[2016-10-20 05:15] VITALS: BP 134/65
--- NOTE | 2016-10-20 05:36 | NUR ---
PT LYING IN BED, EYES CLOSED, RESPIRATIONS EVEN AND UNLABORED. PT IS ROUSABLE WITH VERBAL STIMULI. CONTINUE TO MONITOR CLOSELY.
[2016-10-20 05:53] LABS: BASOPHILS 0 % (0-2); EOSINOPHILS 3.3 % (0-7); HEMATOCRIT 23.3 % (42.0-54.0); IMMATURE GRANULOCYTES 0.2 % (0-5); LYMPHOCYTES 11.4 % (15-50); MCH 30.3 pg (26.0-34.0); MCHC 30.5 g/dL (31.0-37.0); MCV 99.6 fL (80.0-100.0); MEAN PLATELET VOLUME 9.7 fL (7.4-10.4); MONOCYTES 7.7 % (2-11); NEUTROPHILS 77.4 % (40-80); RBC 2.34 10x6/uL (4.20-6.10); RDW 19.5 % (11.5-14.5); WBC 4.3 10x3/uL (4.8-10.8)
[2016-10-20 06:06] LABS: HEMOGLOBIN 7.1 g/dL (13.5-17.5); PLATELET COUNT 154 10x3/uL (130-400)
[2016-10-20 06:08] LABS: CALCIUM 9.5 mg/dL (8.5-10.1); CARBON DIOXIDE 23.1 mmol/L (21.0-32.0); CREATININE - SERUM 11.8 mg/dL (0.6-1.3); POTASSIUM - SERUM 5.1 mmol/L (3.5-5.1)
[2016-10-20 06:17] LABS: INR 2.63 (0.85-1.17); PROTIME 28.2 SECONDS (11.6-15.0)
--- NOTE | 2016-10-20 07:00 | NUR ---
RECEIVED REPORT. ASSUMED CARE OF PATIENT. EASILY AROUSED. RESP EVEN AND UNLABORED. DENIES PAIN AT THIS TIME. NO DISTRESS, CALL LIGHT WITHIN REACH.
[2016-10-20 07:57] VITALS: BP 138/60
[2016-10-20 09:27] VITALS: Ht 152.4 cm; Wt 90.3 kg
--- NOTE | 2016-10-20 11:53 | NUR ---
PATIENT IN DIALYSIS. IS RECEIVING BLODD X2 DURING TREATMENTS
--- NOTE | 2016-10-20 13:57 | NUR ---
BACK FROM DIALYSIS. RECEIVED BLOOD WITHOUT ANY ISSUE.
[2016-10-20 17:54] VITALS: BP 128/68
--- NOTE | 2016-10-20 19:17 | NUR ---
PT AWAKE, ALERT, ORIENTED, DENIES ANY NEEDS AT THIS TIME. CONTINUE TO MONITOR CLOSELY.
[2016-10-20 19:55] VITALS: BP 141/60
[2016-10-21 00:48] VITALS: BP 143/59
--- NOTE | 2016-10-21 02:50 | NUR ---
PT LYING IN BED, EYES CLOSED, RESPIRATIONS EVEN AND UNLABORED. CONTINUE TO MONITOR CLOSELY. BED LOW, CALL LIGHT IN REACH, SIDE RAILS X 2, HOB 35 DEGREES.
[2016-10-21 04:28] LABS: BASOPHILS 0.2 % (0-2); EOSINOPHILS 4.8 % (0-7); HEMATOCRIT 27.3 % (42.0-54.0); IMMATURE GRANULOCYTES 0.2 % (0-5); LYMPHOCYTES 9.3 % (15-50); MCH 31.1 pg (26.0-34.0); MCHC 32.2 g/dL (31.0-37.0); NEUTROPHILS 76.5 % (40-80); PLATELET COUNT 141 10x3/uL (130-400); RDW 18.8 % (11.5-14.5); WBC 4.2 10x3/uL (4.8-10.8)
[2016-10-21 04:30] LABS: HEMOGLOBIN 8.8 g/dL (13.5-17.5); MCV 96.5 fL (80.0-100.0); RBC 2.83 10x6/uL (4.20-6.10)
[2016-10-21 04:43] LABS: ANION GAP 18.3 mmol/L (8-16); CALCIUM 9.7 mg/dL (8.5-10.1); CARBON DIOXIDE 22.6 mmol/L (21.0-32.0); CREATININE - SERUM 11.1 mg/dL (0.6-1.3); POTASSIUM - SERUM 4.9 mmol/L (3.5-5.1)
[2016-10-21 04:52] VITALS: BP 150/75
--- NOTE | 2016-10-21 07:51 | NUR ---
AM ROUNDING- RECEIVED REPORT FROM LEGAL ACTIVITY ADJUDICATOR NURSE TANESHA. PT IS CURRENTLY LAYING IN BED ON BACK WITH EYES OPEN RESTING. ON ROOM AIR. NO MONITOR. IV SEEN TO RIGHT FOREARM THAT IS CURRENTLY SALINE LOCKED. LEFT CHEST HEMOSPLIT SEEN FOR DIALYSIS. NO NEED AT CURRENT TIME. WILL CONTINUE TO MONITOR AND CONTINUE WITH PLAN OF CARE.
[2016-10-21 08:57] VITALS: BP 150/67
--- NOTE | 2016-10-21 10:39 | NUR ---
PT TO DIALYSIS VIA BED.
--- NOTE | 2016-10-21 14:42 | NUR ---
1430- PT BACK FROM DIAYLSIS VIA BED.
[2016-10-21 16:00] VITALS: BP 135/50
--- NOTE | 2016-10-21 16:13 | NUR ---
Rosas- LAURA, WOUND CARE NURSE IN ROOM NOW DOING WOUND DRESSINGS TO BILATERAL BKA AND LEFT HAND.
--- NOTE | 2016-10-21 16:13 | NUR ---
WOUND CARE CONSULT: L STUMP HAS 4CM X 4CM OPEN AREA. THE WOUND BED IS PALE PINK AND HAS MACERATED EDGES. THERE IS A SLIGHT ODOR AND A SMALL AMOUNT OF ARIAS DRAINAGE. CLEANED WELL WITH SAF CLENS AND COVERED WITH AQUACEL DRESSING. R STUMP HAS NO OPEN AREA BUT REQUIRES PROTECTION FROM PRESSURE. COVERED WITH MEPILEX BORDER. PT STATES HE HAS BEEN WALKING ON HIS STUMPS AT HOME PRIOR TO ADMISSION. LEFT HAND #3 AND #4 FINGERS WERE AMPUTATED ON 09/04/16. THERE IS A WOUND MEASURING 4CM X 2CM X 0.4CM. CLEANSED WITH SAF CLENS AND APPLIED MAXORB AG TO OPEN AREA. COVERED WITH NON-STICK GAUZE AND WRAPPED WITH KERLIX. WOUND CARE WILL CONTINUE MONITORING.
--- NOTE | 2016-10-21 18:18 | NUR ---
PT IS CURRENTLY SITTING UP ON SIDE OF BED EATING APPLE. NO NEED AT CURRENT TIME. WILL CONTINUE TO MONITOR.
--- NOTE | 2016-10-21 19:20 | NUR ---
RECEIVED REPORT,ASSUMED CARE OF PT, PT DENIES ANY NEEDS AT THIS TIME, BED IS LOW, SRX2, CALL LIGHT IN REACH, WILL CONTINUE PLAN OF CARE
[2016-10-21 20:00] VITALS: BP 145/67
[2016-10-22] VITALS: BP 140/61
--- NOTE | 2016-10-22 03:51 | NUR ---
ASSESSMENT COMPLETE, SEE FLOWSHEET, PT SLEEPING ON L.SIDE, BED IS LOW, SRX2, CALL LIGHT IN REACH, WILL CONTINUE PLAN OF CARE
[2016-10-22 04:00] VITALS: BP 144/60
[2016-10-22 05:09] LABS: BASOPHILS 0.5 % (0-2); EOSINOPHILS 5.4 % (0-7); HEMATOCRIT 28.3 % (42.0-54.0); HEMOGLOBIN 8.8 g/dL (13.5-17.5); IMMATURE GRANULOCYTES 0.2 % (0-5); LYMPHOCYTES 9.5 % (15-50); MCH 30.3 pg (26.0-34.0); MCHC 31.1 g/dL (31.0-37.0); MCV 97.6 fL (80.0-100.0); MEAN PLATELET VOLUME 9.4 fL (7.4-10.4); MONOCYTES 10.2 % (2-11); NEUTROPHILS 74.2 % (40-80); PLATELET COUNT 144 10x3/uL (130-400); RDW 18.4 % (11.5-14.5); WBC 4.4 10x3/uL (4.8-10.8)
[2016-10-22 05:37] LABS: ANION GAP 14.7 mmol/L (8-16); CALCIUM 9.8 mg/dL (8.5-10.1); CARBON DIOXIDE 27.9 mmol/L (21.0-32.0); CREATININE - SERUM 8.4 mg/dL (0.6-1.3); POTASSIUM - SERUM 4.6 mmol/L (3.5-5.1)
--- NOTE | 2016-10-22 07:26 | NUR ---
0715- AM ROUNDING DONE WITH PATIENT ON LEFT SIDE APPEARING TO BE ASLEEP, RESP ARE EVEN AND NON LABORED. ON 2L PER NC. DRY INTACT DRESSING SEEN TO LEFT HAND. WILL ASSESS PATIENT WHEN AWAKE.
[2016-10-22 08:00] VITALS: BP 135/65
--- NOTE | 2016-10-22 10:12 | NUR ---
Patient Name: SHERITA LOCKHART Admission Status: Urgent Accout number: [id number] Admission Date: 10-19-2016 : 1950 Admission Diagnosis:CHEST PAIN, UNSPECIFIED Attending: DOE Current LOS: 3 Anticipated DC Date: 10-22-2016 Planned Disposition: Senior Living Facility Primary Insurance: MEDICARE A & B PLANNED EXTERNAL PROVIDER: [facility], MEDICARE REHAB BED Discharge Planning Comments: * Is the patient Alert and Oriented? Yes 0 * How many steps to enter\exit or inside your home? NONE 0 * [facility] * [facility] [place] 0 * Preadmission Environment Senior Living Facility 0 * Facility Name [facility] 0 * ADLs Partial Dependent 0 * Partial ADLs (Assistance needed) Bathing Medication Management 0 * Equipment Glucometer Other Oxygen Wheelchair 0 * Other Equipment PROSTETIC LEG UNKNOWN MEDICAL EQUIPMENT PROVIDER 0 * List name and contact numbers for known caregivers / representatives who currently or will assist patient after discharge: BABS AVILEZ, 0 * Community resources currently utilized Other 0 * Please name any agencies selected above. OUTPATIENT DIALYSIS, [facility], [facility], 1030, [facility] 0 * Additional services required to return to the preadmission environment? No 0 * Can the patient safely return to the preadmission environment? Yes 0 * Has this patient been hospitalized within the prior 30 days at any hospital? No [address] JENKINS WHO INFORMED CM THAT PT WILL DISCHARGE BACK TO [facility] THIS MORNING. CM MET WITH PT IN ROOM TO DISCUSS DISCHARGE PLANNING AND NEEDS. PT REPORTS BEING IN REHAB AT [facility] IN [place] AND WILL RETURN THERE AT DISCHARGE. HIS DIALYSIS IS NOW M/W/F AT 1030, [facility]. PT REPORTS HE NEEDS HIS WHEELCHAIR LOCATED HE DOES NOT KNOW WHERE IT IS AT. IMPORTANT MESSAGE FROM MEDICARE PROVIDED AND EXPLAINED. CM CALLED [facility], CLINICAL LIAISON FOR [facility] WHO WILL VERIFY PT'S STATUS AT [facility] AND ARRANGE [facility]AN CHARGE ACCOUNTS AUDIT CLERK FOR TODAY. MINH SPOKE TO PATIENT [facility]WAYS COORDINATOR, JUANITO DAVALOS, VERIFIED PT'S OUTPATIENT DIALYSIS SCHEDULE MW AND WAS NOTIFIED PT'S WHEELCHAIR IS NOT AT THE [facility]. CM NOTIFIED [facility] OF [facility]. CM FAXED DISCHARGE INFORMATION TO [facility] VIA [facility] AT [phone]. NURSE REPORT TO BE CALLED TO [facility] AT [phone]. [facility] TO PROVIDE VAN TRANSPORTATION BACK TO REHAB. Associate Automation Engineer: Ian Brown
[2016-10-22 12:17] VITALS: BP 145/64
--- NOTE | 2016-10-22 12:53 | NUR ---
COMPLAINTS OF LEFT HAND PAIN 01/10. NORCO GIVEN PER REQUESTED.
--- NOTE | 2016-10-22 15:19 | NUR ---
NASIR NESBITT FROM [facility] IN [place] TO CALL AND I GAVE HER REPORT. ALL QUESTIONS ANSWERED. SHE STATES THAT THE [facility] IS ON THE WAY.
[2016-10-22 16:36] VITALS: BP 144/59
--- NOTE | 2016-10-22 17:54 | NUR ---
1735-SALINE LOCK REMOVED WITH CATH TIP INTACT. VERBAL AND WRITTEN DISCHAGE INSTRUCTIONS GIVEN TO PATIENT. DISCHARGED PER OWN WHEELCHAIR.
== END 2016-10-22 17:56 | DRG 811 ==
LOC: D.M2 16:35
PROVIDERS: ADMIT Internal Medicine
PROC: 5A1D60Z (ICD-10-PCS; principal; 2016-10-19)
DX: D64.9 Anemia, unspecified (principal); N18.6 End stage renal disease; I12.0 Hypertensive chronic kidney disease with stage 5 chronic kidney disease or end stage renal disease; D68.2 Hereditary deficiency of other clotting factors; R07.9 Chest pain, unspecified; D63.1 Anemia in chronic kidney disease; E11.22 Type 2 diabetes mellitus with diabetic chronic kidney disease; Z99.2 Dependence on renal dialysis; Z89.512 Acquired absence of left leg below knee; Z89.511 Acquired absence of right leg below knee; Z79.01 Long term (current) use of anticoagulants

== ENCOUNTER 2016-11-09 16:53 | Inpatient (IN) | payer MEDICARE ==
[2016-11-09] VITALS (14 sets, daily range): BP systolic 108–133; BP diastolic 41–68; BMI 36.4
[~2016-11-09] VITALS: Ht 152.4 cm; Wt 87.7 kg
--- NOTE | 2016-11-09 16:30 | NUR ---
PT ARRIVED TO UNIT AT 1630 VIA STRETCHER, ALERT AND OREINTED X3 WITH CONFUSION NOTED, BELIEVING HE IS TO GO TO [place], RESPIRATIONS EVEN AND UNLABORED, BOWEL SOUNDS ACTIVE, PIV TO LEFT FOREARM, WOUND TO LEFT HAND FROM 2 FINGER AMPUTATIONS, BILATERAL BKA WITH WOUND TO LEFT STUMP, DRESSING CDI, PINPOINT OPENING TO RIGHT STUMP WITH DRESSING CDI,LEFT HEMOSPLIT TO SUBCLAVIAN, DRESSING CDI CONTINENT, DENIES PAIN AND ALL NEEDS, TO BEGIN PROTONIX, GERSH AWARE OF ARRIVAL
--- NOTE | 2016-11-09 17:11 | NUR ---
PT ASKING TO TALK TO HIS BROTHER. NO NUMBER LISTED. NUMBER LISTED FOR CALLED. IS THE [facility]. SPOKE WITH MIGUELITO. ASKED FOR ALEXANDER, PLACED ON HOLD AND THEN TRANSFERED TO A GENERAL VOICEMAIL BOX. ALSO ATTEMPTED TO REACH LISTED RUBYA -FIDENCIO CASTILLO, UNABLE TO GET AN ANSWER AT THE LISTED NUMBER.
[2016-11-09 17:35] LABS: BASOPHILS 0.1 % (0-2); EOSINOPHILS 1.5 % (0-7); IMMATURE GRANULOCYTES 0.4 % (0-5); LYMPHOCYTES 9.3 % (15-50); MCH 30.9 pg (26.0-34.0); MCV 93.7 fL (80.0-100.0); MEAN PLATELET VOLUME 8.3 fL (7.4-10.4); MONOCYTES 5.6 % (2-11); NEUTROPHILS 83.1 % (40-80); WBC 9.6 10x3/uL (4.8-10.8)
--- NOTE | 2016-11-09 17:38 | NUR ---
DR REYNA HAS BEEN NOTIFIED PT IS AT FACILITY. ASKS FOR CALL BACK ONCE LAB RESULTS IN. PT GAVE NUMBER FOR STACEY BROWN -BROTHER. [phone]. NUMBER WAS CALLED. STACEY WAS NOT IN, NAVIN ANSWERED. NOTIFIED PT WAS IN HOSPITAL AND NUMBER TO UNIT PROVIDED FOR THEM TO CALL AND CHECK UP ONCE STACEY RETURNS HOME. PT LET KNOW BROTHER WAS NOT HOME BUT A MESSAGE LEFT FOR HIM.
[2016-11-09 17:47] LABS: APTT 45.6 SECONDS (22.8-39.4); INR 2.78 (0.85-1.17); PROTIME 29.6 SECONDS (11.6-15.0)
[2016-11-09 17:52] LABS: ANION GAP 23.8 mmol/L (8-16); CALCIUM 8.7 mg/dL (8.5-10.1); CREATININE - SERUM 9.9 mg/dL (0.6-1.3); POTASSIUM - SERUM 4.8 mmol/L (3.5-5.1)
[2016-11-09 18:04] LABS: HEMATOCRIT 17.9 % (42.0-54.0); HEMOGLOBIN 5.9 g/dL (13.5-17.5); PLATELET COUNT 184 10x3/uL (130-400); RBC 1.91 10x6/uL (4.20-6.10)
--- NOTE | 2016-11-09 18:16 | NUR ---
CALLED DR REYNA WITH LAB RESULTS. REVIEWED H&H VALUES. ASKED FOR 3 UNITS PRBC TO BE GIVEN.
[2016-11-09] MEDS ORDERED: ISOSORBIDE MONO30 M1 PO (18:46)
[2016-11-09] MEDS ORDERED: PROMOD LIQUID P30 M1 PO (18:46)
[2016-11-09] MEDS ORDERED: AMOXICILLIN500 M1 PO (18:49)
[2016-11-09] MEDS ORDERED: MULTIPLE VITAMI1 TA1 PO (18:50)
--- NOTE | 2016-11-09 19:30 | NUR ---
REPORT RECIEVED. ASSESSMENT COMPLETED. PT IS IN BED. 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 HAS HAD FINGERS AMPUTATED ON BOTH HANDS. LUNG SOUNDS CRACKLES IN ALL LOBES. RADIAL PULSES AND FOMORAL PULSES PALP. BILAT BKA OF BOTH LEGS. THE LT STUMP IS STILL IN HEALING STAGES WITH A DRESSING CDI. LT HANDS HAS SOME HEALING STAGES WITH A DRESSING CDI. WILL CONTINUE TO MONITOR.
--- NOTE | 2016-11-09 19:36 | NUR ---
SHARITA CASTILLO CALLED TO GET CONSENT FOR BLOOD ADMINISTRATION. CONSENT PROVIDED AND CONFIRMED/WITNESSED BY KOMAL PIÑA RN. CONSENT PLACED ON CHART
--- NOTE | 2016-11-09 20:15 | NUR ---
STARTED THE FIRST UNIT OF BLOOD. MONITORING PT FOR SIGNS OF REACTION. WILL CONTINUE TO MONITOR.
--- NOTE | 2016-11-09 23:00 | NUR ---
REASSESSMENT COMPLETED AND SECOND UNIT OF BLOOD STARTED. WILL CONTINUE TO MONITOR PT.
[2016-11-10] VITALS (24 sets, daily range): BP systolic 114–153; BP diastolic 48–96; Ht 152.4 cm; Wt 87.7 kg
--- NOTE | 2016-11-10 01:00 | NUR ---
PT SECOND UNIT OF BLOOD IS INFUSING. PT IS POSITIONED FOR COMFORT AND SLEEPING IT APPEARS. WILL CONTINUE TO MONITOR.
--- NOTE | 2016-11-10 01:30 | NUR ---
PT SECOND UNIT OF BLOOD FINISHED. WILL START THE THIRD UNIT SOON POSSIBLE. WILL CONTINUE TO MONITOR. PT SLLEPING AND DENIES ANY NEEDS.
--- NOTE | 2016-11-10 02:00 | NUR ---
THIRD UNIT OF BLOOD IS STARTED WITH NO REACTIONS WILL CONTINUE TO MONITOR THE BLOOD INFUSES. PT SLEEPING INBETWEEN VITALS SIGNS. POSITIONED FOR COMFORT.
--- NOTE | 2016-11-10 04:15 | NUR ---
THIRD UNIT OF BLOOD COMPLETE. PT POSITIONED FOR COMFORT. WILL CONTINUE TO MONITOR.
[2016-11-10 05:46] LABS: BASOPHILS 0.2 % (0-2); EOSINOPHILS 4.1 % (0-7); IMMATURE GRANULOCYTES 0.7 % (0-5); MCH 30.6 pg (26.0-34.0); MCHC 33.7 g/dL (31.0-37.0); MEAN PLATELET VOLUME 8.8 fL (7.4-10.4); PLATELET COUNT 162 10x3/uL (130-400); RDW 16.7 % (11.5-14.5); WBC 9.5 10x3/uL (4.8-10.8)
[2016-11-10 05:51] LABS: HEMATOCRIT 25.2 % (42.0-54.0); HEMOGLOBIN 8.5 g/dL (13.5-17.5); MCV 90.6 fL (80.0-100.0); RBC 2.78 10x6/uL (4.20-6.10)
--- NOTE | 2016-11-10 07:27 | NUR ---
HAVE PAGED PHARMCY TWICE AND STILL DONT HAVE THE VITAMIN K DR SANDERS HAS ORDERED. PAGING AGAIN AND LET THE DAY SHIFT NURSE KNOW.
--- NOTE | 2016-11-10 08:44 | NUR ---
PAGED DR. REYNA TO NOTIFY OF H&H.
--- NOTE | 2016-11-10 09:04 | NUR ---
SPOKE WITH DR. REYNA. ORDERED ONE UNIT OF BLOOD.
--- NOTE | 2016-11-10 09:23 | NUR ---
WOUND NURSE CONSULTED TO ASSESS WOUND ON L LOWER EXTREMITY. SPOKE WITH NURSE. SHE IS AWARE OF CONSULT.
[2016-11-10 09:31] LABS: INR 2.4 (0.85-1.17); PROTIME 26.3 SECONDS (11.6-15.0)
[2016-11-10 09:42] LABS: ALBUMIN 2.9 g/dL (3.4-5.0); ANION GAP 14.6 mmol/L (8-16); BILIRUBIN - TOTAL 0.6 mg/dL (0.2-1.3); CARBON DIOXIDE 23.3 mmol/L (21.0-32.0); CREATININE - SERUM 11.5 mg/dL (0.6-1.3); POTASSIUM - SERUM 4.9 mmol/L (3.5-5.1)
--- NOTE | 2016-11-10 10:29 | NUR ---
DANNA GARRETT. ORDERED 4 UNITS OF FFP TO BE INFUSED. EDG PROCEDURE SCHEDULED FOR 1130 TODAY. CONSENT FORMS FOR PROCEDURED SIGNED.
--- NOTE | 2016-11-10 11:23 | NUR ---
DELICIA FROM [facility] CALLED FOR UPDATE. UPDATE PROVIDED. SAYS PATIENT HAS A SCHEDULED APPOINTMENT WITH DR RAMÍREZ ON 11/12 AT 9AM FOR EVALUATION ON LEFT HAND.
--- NOTE | 2016-11-10 11:38 | NUR ---
DR RAMÍREZ OFFICE CALLED. DR STOVER SEEING PATIENTS AT THIS TIME. CONSULT ENTERED FOR FOLLOW UP VISIT.
--- NOTE | 2016-11-10 11:42 | NUR ---
Wound Care consult: Pt had amputation of #3 & #4 fingers on left hand in Aug, 2016. There is an open area measuring 2cm x 2cm at amputation site. No odor and a small to moderate amount of drainage. Hand is tender to the touch. LBKA has open wound measuring 3cm x 3cm. The wound bed is pale pink. No odor is noted. RBKA has a small open wound measuring 1cm x 1cm. Pale pink wound bed and no odor noted. (pt states he fell causing this wound). Gently cleansed all wounds. Cut a strip off of a 3x8 Mepilex AG and applied to hand wound then wrapped with kerlix. Using the rest of the 3x8 Mepilex AG covered each wound on stumps. Pt tolerated well. Wound care will continue monitoring.
--- NOTE | 2016-11-10 12:09 | NUR ---
[facility] STARTED AT 1120. CURRENTLY INFUSING 3RD UNIT. PATIENT TOLERATING WELL.
--- NOTE | 2016-11-10 12:30 | NUR ---
EGD COMPLETED. NO BLEEDING FOUND. PT CAN HAV A CLEAR LIQUID DIET PER ORDERS.
--- NOTE | 2016-11-10 13:11 | NUR ---
4TH UNIT OF FFP INFUSING. PT CLEAN UP. BLACK, LIQUID BM. INCONTINENT URINE EPIDODE. BED LINEN CHANGED. PT PULLED UP IN BED. RESTING QUIETLY.
--- NOTE | 2016-11-10 13:30 | NUR ---
[facility] FINISHED INFUSING. IV PROTONIX DISCONTINUED PER ORDERS.
--- NOTE | 2016-11-10 14:04 | NUR ---
* Is the patient Alert and Oriented? Yes 0 * How many steps to enter\exit or inside your home? 0 0 * Preadmission Environment Custodial Facility 0 * Facility Name [facility] [phone] 0 * ADLs Partial Dependent 0 * Partial ADLs (Assistance needed) Ambulation Bathing Dressing Medication Management Toileting Transfers 0 * Equipment Wheelchair 0 * Other Equipment Prosthetic Leg 0 * List name and contact numbers for known caregivers / representatives who currently or will assist patient after discharge: Erasmo Hernandez 0 * Additional services required to return to the preadmission environment? No 0 * Can the patient safely return to the preadmission environment? Yes 0 * Has this patient been hospitalized within the prior 30 days at any hospital? Yes Patient Name: SHERITA LOCKHART Admission Status: Elective Accout number: [id number] Admission Date: 11-09-2016 : 1950 Admission Diagnosis:GASTROINTESTINAL HEMORRHAGE, UNSPECIFIED Attending: GABRIELLE Current LOS: 1 Planned Disposition: Custodial Facility Primary Insurance: MEDICARE A & B Discharge Planning Comments: CM met with patient to assess nc plans/needs. He was admitted from a halfway bed at [facility] in [place]. He has a prosthetic leg and primarily uses a WC for mobility. He goes to [facility] on MWF @ 1030 for HD. At nc, he will return to a halfway bed at [facility]. CM will follow & assist as needed. Char Filter Tank Tender: Agata Ortiz
--- NOTE | 2016-11-10 14:50 | NUR ---
CALLED DR RAMÍREZ OFFICE BECAUSE CISO HAVING DIFFICULTY GETTING THE CONSULT. WHEN SHE CALLED SHE WAS TOLD SHE NEEDED TO CALL DR STERLING. TOLD THEM PT HAS BEEN ADMITTED FROM [facility] [place] AND IS HERE FOR A GI BLEED. PT WOUND HAS DRAINAGE AND NEEDS TO BE SEEN, IS NOT JUST A GENERAL FOLLOW UP REQUEST TO COME TO HOSPITAL TO SEE PATIENT. SPOKE WITH DR STOVER ON THE PHONE AND EXPLAINED PATIENT SITUATION. SAID WILL COME TOMORROW (SATURDAY 11/11) TO SEE PATIENT.
--- NOTE | 2016-11-10 16:14 | NUR ---
DIALYSIS NURSE IN ROOM.
--- NOTE | 2016-11-10 17:13 | NUR ---
DIALYSIS NURSE GIVING 1 UNIT OF PRBC.
--- NOTE | 2016-11-10 19:30 | NUR ---
REPORT RECIEVED. ASSESSMENT COMPLETED. DIALYSIS JUST GOT DONE AND SAID THEY PULLED 2 LITERS OFF AND HE HANDLED IT WELL. LUNGS ARE CRACKLES IN ALL LOBES WITH ACTIVE BOWEL SOUNDS. VSS. WILL CONTINUE TO MONITOR.
--- NOTE | 2016-11-10 21:00 | NUR ---
PT HAS FAMILY AT BED SIDE. UPDATE GIVEN. PT POSITIONED FOR COMFORT. WILL CONTINUE TO MONITOR.
--- NOTE | 2016-11-10 23:00 | NUR ---
REASSESSMENT COMPLETED. WILL CONTINUE TO MONITOR.
[2016-11-11] VITALS (24 sets, daily range): BP systolic 118–158; BP diastolic 57–88
--- NOTE | 2016-11-11 03:00 | NUR ---
REASSESSMENT COMPLETED. PT POSITIONED FOR COMFORT AND PROVIDED CHICKEN BROTH. WILL CONTINUE TO MONITOR.
[2016-11-11 04:38] LABS: BASOPHILS 0.2 % (0-2); HEMATOCRIT 25.3 % (42.0-54.0); HEMOGLOBIN 8.5 g/dL (13.5-17.5); IMMATURE GRANULOCYTES 0.3 % (0-5); LYMPHOCYTES 6.2 % (15-50); MCH 30.8 pg (26.0-34.0); MCHC 33.6 g/dL (31.0-37.0); MCV 91.7 fL (80.0-100.0); MEAN PLATELET VOLUME 8.7 fL (7.4-10.4); MONOCYTES 6.7 % (2-11); NEUTROPHILS 83.6 % (40-80); PLATELET COUNT 144 10x3/uL (130-400); RBC 2.76 10x6/uL (4.20-6.10); RDW 17.7 % (11.5-14.5)
[2016-11-11 04:40] LABS: WBC 6.3 10x3/uL (4.8-10.8)
[2016-11-11 04:45] LABS: INR 2.94 (0.85-1.17); PROTIME 30.9 SECONDS (11.6-15.0)
--- NOTE | 2016-11-11 05:00 | NUR ---
PT IN BED WATCHING TV REPLACED DRESSING ON STUMPS DO TO THEM COMING OFF DURING SLEEP. PT POSITIONED FOR COMFORT WILL CONTINUE TO MONITOR.
--- NOTE | 2016-11-11 08:01 | NUR ---
CVL DRESSING APPLIED TO L-SUBCLAVIAN HEMOSPLIT. PT RESTING COMFORTABLY.
--- NOTE | 2016-11-11 08:44 | NUR ---
PULLED UP IN BED AND SAT UP TO EAT BREAKFAST.
--- NOTE | 2016-11-11 11:35 | NUR ---
SPOKE WITH DR. REYNA ABOUT H&H. NO BLOOD ORDERED FOR TODAY. WANTS TO SEE HOW HE DOES WITHOUT ANY BLOOD GIVEN TODAY.
--- NOTE | 2016-11-11 12:25 | NUR ---
VITAMIN K ADMINISTERED PER ORDERS. PT TALKING ON PHONE.
--- NOTE | 2016-11-11 13:10 | NUR ---
SPOKE WITH FIDENCIO CASTILLO PATIENTS POA AND GAVE UPDATE. CODE WORD SET UP "BIG FOOT".
--- NOTE | 2016-11-11 18:35 | NUR ---
CALLED DR. REYNA'S OFFICE TO SEE ABOUT ORDERING PAIN MEDICINE FOR PATIENT. PT REPORTS PAIN ON LEFT BKA AT THE OPEN WOUND. OFFICE WILL HAVE DR. OSMAN PAGED.
--- NOTE | 2016-11-11 18:40 | NUR ---
SPOKE WITH DR. OSMAN ABOUT PAIN MEDICATION. ORDERED BUPRENEX 0.1MG Q 4 HRS FOR MODERATE TO SEVERE PAIN AND NORCO 7.5 325 TAB PO FOR MILD PAIN Q 4 HRS.
--- NOTE | 2016-11-11 19:00 | NUR ---
Received patient resting in bed with eyes closed, assessment completed per flowsheet. Patient AO x2, occaisional disorientation to time/situation. Eyes PERRLA @ 4mm with brisk response, sclera is white. S1/S2 noted Atrial flutter with occaisional PVC noted on telemetry with HR 83. Breathing is even and unlabored on 2L via NC with O2 sat 95%, crackles noted bilateral upper and mid with diminished lower. Abdomen is distended and soft with bowel sounds active x4, non-tender to palpation. Patient utilizes bedpan for voids, 50ml yellow cloudy urine noted. Upper pulses palpable, BKA bilatera lower with popliteal palpable. Cap refill < 3 sec. L subclavian hemosplit noted, patent and not in use. 20g PIV noted R forearm, patent and salin locked. Patient denies pain or other needs at this time, all VSS and will continue to monitor.
--- NOTE | 2016-11-11 21:00 | NUR ---
Patient provided snack upon request, no difficulties swallowing noted. Repositioned for comfort, no further needs at this time.
--- NOTE | 2016-11-11 22:55 | NUR ---
Reassessment completed per flowsheet, patient resting in bed with eyes open watching TV. S1/S2 noted Atrial Flutter on telemetry with HR 84. Breathing is even and unlabored on 2L via NC with O2 sat 96%. Upper pulses palpable with lower extremity bilateral BKA, cap refill < 3 sec. Patient denies pain or other needs at this time, all VSS and will continue to monitor.
--- NOTE | 2016-11-11 23:35 | NUR ---
Patient c/o pain in L hand, PRN medication provided. Will reassess, no further needs at this time.
[2016-11-12] VITALS (24 sets, daily range): BP systolic 122–158; BP diastolic 54–89
--- NOTE | 2016-11-12 01:00 | NUR ---
Patient resting in bed with eyes closed, no s/s of distress noted. Full bed bath/linen change performed, repositioned for comfort. No further needs at this time, all VSS and will continue to monitor.
--- NOTE | 2016-11-12 02:50 | NUR ---
Reassessment completed per flowsheet, patient resting in bed with eyes closed. S1/S2 noted Atrial Flutter on telemetry with HR 61. Breathing is even and unlabored on 2L via NC with O2 sat 96%, crackles noted bilateral upper and mid with diminished lower. Upper pulses palpable with cap refill < 3 sec, Bilateral lower BKA with popliteal pulses palpable. Dressing changed L hand and bilateral legs, tolerated well. Patient denies pain or other needs at this time, all VSS and will continue to monitor.
[2016-11-12 03:40] LABS: BASOPHILS 0.2 % (0-2); EOSINOPHILS 1.7 % (0-7); HEMATOCRIT 22.7 % (42.0-54.0); HEMOGLOBIN 7.7 g/dL (13.5-17.5); IMMATURE GRANULOCYTES 0.2 % (0-5); LYMPHOCYTES 7.4 % (15-50); MCH 31.7 pg (26.0-34.0); MCHC 33.9 g/dL (31.0-37.0); MCV 93.4 fL (80.0-100.0); MEAN PLATELET VOLUME 8.9 fL (7.4-10.4); MONOCYTES 8.1 % (2-11); NEUTROPHILS 82.4 % (40-80); PLATELET COUNT 151 10x3/uL (130-400); RBC 2.43 10x6/uL (4.20-6.10)
[2016-11-12 03:56] LABS: PROTIME 39.5 SECONDS (11.6-15.0)
--- NOTE | 2016-11-12 05:00 | NUR ---
AM Labs collected without difficulty. Patient requested snack, provided. NO further needs at this time, all VSS and will continue to monitor.
--- NOTE | 2016-11-12 07:00 | NUR ---
PT AWAKE BUT DROWSY AT THIS TIME. PT STATES THAT HE WAS UP ALL NIGHT AND NEEDS TO REST. ABLE TO OBEY COMMANDS AND VERBALIZE NEEDS. ATRIAL FLUTTER WITH PVCS NOTED. O2 STABLE ON 2L NC. PT MOVED UP IN BED WITH MODERATE ASSISTANCE. COMPLETE SHIFT ASSESSMENT DOCUMENTED PER FLOWSHEET. WILL MONITOR CLOSELY FOR CHANGES IN PT STATUS.
--- NOTE | 2016-11-12 09:00 | NUR ---
PT ON BEDPAN PER REQUEST. NO BM NOTED AT THIS TIME. PT URINATED SMALL AMOUNT IN BEDPAN. COMPLETE LINEN CHANGE DONE. VITAL SIGNS STABLE.
--- NOTE | 2016-11-12 10:21 | NUR ---
NUTRITION MONITORING & EVAL CHART REVIEWED. RENAL CLEAR LIQUIDS. WILL MONITOR DIET ADVANCEMENT, PO INTAKE. RD FOLLOWING
--- NOTE | 2016-11-12 10:45 | NUR ---
DMITRI HUTSON DRESSING CHANGES DONE. SITE IS NOW CDI. PT HAD INCONTINENT EPISODE OF STOOL. CLEANED AND FULL LINEN CHANGE COMPLETE. SHAMPOO CAP ON HEAD AND HAIR BRUSHED. WILL CONTINUE TO MONITOR. CALL LIGHT WITHIN REACH
--- NOTE | 2016-11-12 13:00 | NUR ---
2 UNITS PRBC ORDERED FOR PT. BLOOD CONSENT IN CHART. EXPLAINED REASON FOR BLOOD TO PT, VERBALIZES UNDERSTANDING
--- NOTE | 2016-11-12 13:49 | NUR ---
Dialysis Coordinator: [facility] Mikayla/Cesar/Carson @ 10:30. Medical records forwarded to home unit for their records. SOPHY VELA.
--- NOTE | 2016-11-12 14:00 | NUR ---
WEDNESDAY, WEDNESDAY, WEDNESDAY DIALYSIS ORDERED FOR PT. SPOKE WITH DR REYAN ABOUT MOST RECENT ORDER BEING DATED FOR 11/10. HE STATES THAT PT IS ON SCHEDULED AND WILL RECEIVE DIALYSIS TODAY. NO FURTHER CHANGES AT THIS TIME.
--- NOTE | 2016-11-12 16:00 | NUR ---
PT ON DIALYSIS. NURSE AT BEDSIDE FOR TREATMENT. PRBC GIVEN DURING DIALYSIS FOR A TOTAL OF 2 UNITS TODAY PER ORDER. PT TOLERATING TRANSFUSION WELL. VITAL SIGNS STABLE.
--- NOTE | 2016-11-12 18:30 | NUR ---
PT STABLE FOLLOWING DIALYSIS. ATE DINNER TRAY INDEPENDENTLY. SITTING UP IN BED WITH NO COMPLAINTS AT THIS TIME.
--- NOTE | 2016-11-12 19:10 | NUR ---
Received patient sitting up in bed with dialysis complete, assessment completed per flowsheet. Patient AO x3, some disorientation to time but patient reorients easily. Eyes PERRLA @ 4mm with brisk response, sclera is white. Tongue is midline, some teeth missing upper. S1/S2 noted Atrial flutter with PVC on telemetry with HR 64. Breathing is even and unlabored on 2L via NC with O2 sat 96%, crackles noted bilateral upper and mid with diminished lower. Abdomen is soft and round with bowel sounds active x4, non-tender to palpation. Patient utilizes bedpan, cloudy yellow urine noted in collection. Full ROM upper extremities with pulses palpable, bilateral lower BKA with popliteal pulses palpable. Amputated fingers bilateral hands, L hand dressing CDI. Bilateral lower BKA dressing CDI and intact. Patient completed dialysis approximately 1930, 3000ml removed and patient tolerated well. 20g PIV R forearm patent and saline locked, dressing intact. Hemosplit noted L subclavian not currently used, dressing intact. L arm reserve for old fistula site, no thrill/bruit noted. Patient denies pain, requested snack post dialysis. Broth provided with no difficulties noted. No further needs at this time, all VSS and will continue to monitor.
--- NOTE | 2016-11-12 21:00 | NUR ---
Patient sitting up in bed watching TV, no s/s of distress. Requested help calling Vidya (Sister) , assisted and patient spoke with family. No further needs at this time, all VSS and will continue to monitor.
--- NOTE | 2016-11-12 22:26 | NUR ---
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 Mood withdrawn but denies any needs or assistance at this time. Will continue to monitor.
--- NOTE | 2016-11-12 23:00 | NUR ---
Reassessment completed per flowsheet, patient resting in bed with eyes closed. Patient slightly withdrawn, calm and cooperative. S1/S2 noted Atrial flutter with PVC on telemetry with HR 64. Breathing is even and unlabored on 2L via NC, O2 sat 96%. No s/s of distress post dialysis, upper pulses palpable with cap refill < 3 sec. Patient denies pain or other needs at this time, all VSS and will continue to monitor.
[2016-11-13] VITALS (14 sets, daily range): BP systolic 127–160; BP diastolic 58–91
--- NOTE | 2016-11-13 01:00 | NUR ---
Patient resting in bed with eyes closed, breathing is even and unlabored. Denies pain or other needs at this time, all VSS and will continue to monitor.
--- NOTE | 2016-11-13 03:00 | NUR ---
Reassessment completed per flowsheet, patient resting in bed with eyes closed. Patient calm and cooperative, appears to be more relaxed. S1/S2 noted Atrial Flutter with PVC on telemetry with HR 84. Breathing is even and unlabored on 2L via NC, O2 sat 96%. No s/s of distress post dialysis. Upper extremity pulses palapble with cap refill < 3 sec, popliteal pulses palpable. Patient Denies pain or other needs at this time, all VSS and will continue to monitor.
[2016-11-13 04:15] LABS: BASOPHILS 0.2 % (0-2); EOSINOPHILS 2.2 % (0-7); IMMATURE GRANULOCYTES 0.6 % (0-5); LYMPHOCYTES 8.5 % (15-50); MCH 30.8 pg (26.0-34.0); MCV 93.4 fL (80.0-100.0); MEAN PLATELET VOLUME 8.9 fL (7.4-10.4); NEUTROPHILS 80.5 % (40-80); PLATELET COUNT 147 10x3/uL (130-400); RDW 17.9 % (11.5-14.5); WBC 6.5 10x3/uL (4.8-10.8)
[2016-11-13 04:20] LABS: HEMATOCRIT 28.5 % (42.0-54.0); HEMOGLOBIN 9.4 g/dL (13.5-17.5); RBC 3.05 10x6/uL (4.20-6.10)
[2016-11-13 04:24] LABS: INR 3.48 (0.85-1.17); PROTIME 35.4 SECONDS (11.6-15.0)
--- NOTE | 2016-11-13 05:00 | NUR ---
Patient laying in bed with eyes closed, breathing is even and unlabored. Denies pain or other needs at this time, all VSS and will continue to monitor.
--- NOTE | 2016-11-13 07:00 | NUR ---
REPORT RECEIVED. ASSUMED CARE OF PT. PT SLEEPING AT THIS TIME. NO DISTRESS NOTED. ON 2L NC. VSS. BREATH SOUNDS CLEAR.
--- NOTE | 2016-11-13 09:15 | NUR ---
DR MEIER BY TO SEE PATIENT. LONG VISIT EXPLAINING SITUATION. PT ALERT AND ORIENTED AT THIS TIME.
[2016-11-13 09:32] LABS: CALCIUM 9.5 mg/dL (8.5-10.1); CARBON DIOXIDE 28.7 mmol/L (21.0-32.0); CREATININE - SERUM 7.6 mg/dL (0.6-1.3); POTASSIUM - SERUM 3.7 mmol/L (3.5-5.1)
--- NOTE | 2016-11-13 11:40 | NUR ---
PT RECIEVED FROM ICU VIA BED TO ROOM 2128. PT IS ALERT AND ORIENTED X 3. DENIES ACUTE DISCOMFORT AT THIS TIME. ASKED ONLY FOR SOME ICE CHIPS, AND THE WESTERN CHANNEL ON TV. LEFT CHEST HEMISPLIT CATH NOTED. DRESSING IS CDI. O2 PLACED ON @ 2LPM PER NC. NO SOB NOTED. DRESSING INTACT TO ANDRE LEG STUMPS, AND LEFT HAND AMPUTATIONS. VSS. SR'S ARE UP X 3 IN BED. CALL LIGHT AND BEDSIDE TABLE ARE WITHIN EASY REACH.
--- NOTE | 2016-11-13 15:47 | NUR ---
PT ASSISTED TO USE BEDPAN. LARGE SOFT BM WITH A MOD AMOUNT OF DARK BLOODY SUBSTANCE NOTED. NO ESTEVAN RED BLOOD NOTED.
[2016-11-13 17:06] LABS: BASOPHILS 0.3 % (0-2); EOSINOPHILS 1.8 % (0-7); HEMATOCRIT 33.2 % (42.0-54.0); HEMOGLOBIN 10.8 g/dL (13.5-17.5); IMMATURE GRANULOCYTES 0.9 % (0-5); LYMPHOCYTES 7.7 % (15-50); MCH 30.4 pg (26.0-34.0); MCHC 32.5 g/dL (31.0-37.0); MCV 93.5 fL (80.0-100.0); MEAN PLATELET VOLUME 10.2 fL (7.4-10.4); MONOCYTES 8.6 % (2-11); NEUTROPHILS 80.7 % (40-80); RBC 3.55 10x6/uL (4.20-6.10); RDW 18.2 % (11.5-14.5); WBC 6.8 10x3/uL (4.8-10.8)
[2016-11-13 17:10] LABS: PLATELET COUNT 101 10x3/uL (130-400)
--- NOTE | 2016-11-13 19:30 | NUR ---
PT. IN BED WITH HOB UP FOR COMFORT AND WATCHING TV. NO VOICED NEEDS AT THIS TIME. ASSESSMENT COMPLETED. CALL LIGHT WITHIN REACH.
--- NOTE | 2016-11-13 23:30 | NUR ---
PT. IN BED WITH HOB UP FOR COMFORT AND CONTINUES TO WATCH TV. PT. WANTS LIGHTS LEFT ON HE DOESN'T LIKE TO BE IN THE DARK. NO OTHER VOICED NEEDS AT THIS TIME. CALL LIGHT WITHIN REACH.
[2016-11-14] VITALS: BP 146/70
--- NOTE | 2016-11-14 03:15 | NUR ---
PT. IN BED WITH HOB UP FOR COMFORT WITH EYES CLOSED AND RESP. EVEN. CALL LIGHT WITHIN REACH.
--- NOTE | 2016-11-14 05:47 | NUR ---
PT. IN BED WITH HOB UP FOR COMFORT WITH EYES CLOSED AND RESP. EVEN. PT. HAS RESTED WELL THIS NIGHT. CALL LIGHT WITHIN REACH.
[2016-11-14 06:00] LABS: BASOPHILS 0.3 % (0-2); HEMATOCRIT 27.6 % (42.0-54.0); HEMOGLOBIN 9.1 g/dL (13.5-17.5); IMMATURE GRANULOCYTES 0.3 % (0-5); MCH 30.8 pg (26.0-34.0); MCV 93.6 fL (80.0-100.0); MEAN PLATELET VOLUME 9.2 fL (7.4-10.4); MONOCYTES 7.6 % (2-11); NEUTROPHILS 79.8 % (40-80); RBC 2.95 10x6/uL (4.20-6.10); RDW 18.1 % (11.5-14.5); WBC 6.3 10x3/uL (4.8-10.8)
[2016-11-14 06:02] LABS: INR 3.74 (0.85-1.17); PROTIME 37.5 SECONDS (11.6-15.0)
[2016-11-14 06:05] LABS: PLATELET COUNT 135 10x3/uL (130-400)
[2016-11-14 06:12] LABS: ANION GAP 15.1 mmol/L (8-16); CALCIUM 8.8 mg/dL (8.5-10.1); CARBON DIOXIDE 25.5 mmol/L (21.0-32.0); CREATININE - SERUM 8.9 mg/dL (0.6-1.3); PHOSPHOROUS 5.7 mg/dL (2.5-4.9); POTASSIUM - SERUM 3.6 mmol/L (3.5-5.1)
--- NOTE | 2016-11-14 07:18 | NUR ---
AM ROUNDING DONE WITH PATIENT ON HEART MONITOR SHOWING CAF WITH MULTIFOCAL PVC, HR 72. ON ROOM AIR. LEFT CHEST HEMISPLIT SEEN, LEFT UPPER ARM AVF, UNABLE TO FEEL BRUIT OR THRILL. LEFT HAND SEEN WITH CDI DRESSING, BILATERAL BKA'S SEEN ALSO WITH CDI DRESSING. SALINE LOCK SEEN TO RIGHT FA. WILL CPOC.
[2016-11-14 08:00] VITALS: BP 162/76
--- NOTE | 2016-11-14 08:35 | NUR ---
WENT TO GIVE PATIENT HIS AM MEDS, 100 CC OF LIQUID EMESIS TO BUCKET. LOOKS LIKE HIS JELLO HE ATE FOR BREAKFAST. WILL WAIT ON AM MEDS FOR THIS TO PASS.
--- NOTE | 2016-11-14 10:02 | NUR ---
0950-TO DIALYSIS VIA BED.
--- NOTE | 2016-11-14 13:17 | NUR ---
RETURNS FROM DIALYSIS. WANTS TO HAVE HIS BROTH BEFORE DRESSING CHANGES.
--- NOTE | 2016-11-14 13:21 | NUR ---
PT ARRIVED TO TX VIA BED FROM [facility]. TX RAN ORDERED TIME, WITH 3L OF FLUID REMOVED. HEPARIN PLACED IN LUMENS ORDERED TO INDHERON. POST B/P 136/66, HR 64. PT WAS GIVEN PAIN PILL DURING TX AND HAD BEGUN TO RELAX PRIOR TO END OF TX.
[2016-11-14 16:00] VITALS: BP 116/71
--- NOTE | 2016-11-14 17:53 | NUR ---
ASSISTED PATIENT OFF AND ON TO THE BEDPAN, PATIENT IS TO HAVE COLON PREP AND CLEAR LIQUIDS TOMORROW. WILL GET PERMITS SIGNED TOMORROW..
[2016-11-14 20:00] VITALS: BP 165/81
--- NOTE | 2016-11-14 22:06 | NUR ---
REC'D LYING IN BED. ALERT AND OREINTED X4. DENIED PAIN AT THIS TIME. IS WANTING TO CALL SISTER. HELPED HIM WITH THAT. NO DISTRESS NOTED. DENIED FURTHER NEEDS AT THIS TIME. INSTRUCTED TO CALL IF NEEDED ANYTHING. VERBALIZED UNDERSTANDING. BED LOW, LOCKED, CALL LIGHT IN REACH.
[2016-11-15 04:00] VITALS: BP 160/69
--- NOTE | 2016-11-15 05:57 | NUR ---
RESTING IN BED. NO DISTRESS NOTED. WILL CONT TO MONITOR. BED LOW, LOCKED, CALL LIGHT IN REACH.
[2016-11-15 06:12] LABS: INR 3.37 (0.85-1.17); PROTIME 34.5 SECONDS (11.6-15.0)
[2016-11-15 06:17] LABS: ANION GAP 15.7 mmol/L (8-16); CALCIUM 8.6 mg/dL (8.5-10.1); CREATININE - SERUM 7.8 mg/dL (0.6-1.3); PHOSPHOROUS 4.8 mg/dL (2.5-4.9); POTASSIUM - SERUM 3.7 mmol/L (3.5-5.1)
--- NOTE | 2016-11-15 07:05 | NUR ---
AM ROUNDING DONE WITH PATIENT WATCHING TV. DENIES NEEDS AT PRESENT TIME. FOR GI PREP TODAY, WILL GET PERMITS SIGNED FOR PROCEDURE IN AM. RES. LEFT ARM WITH LEFT AVF TO UPPER ARM, UNABLE TO FEEL BRUIT OR THRILL. RIGHT FA WITH SALINE LOCK. BILATERAL BKA WITH INTACT DRESSINGS SEEN. BILATERAL HANDS MISSING SOME FINGERS, DRESSING TO LEFT HAND, DRY AND INTACT. ON HEART MONITOR SHOWING CAF, HR 75 WITH OCC. PVC. WILL CPOC.
[2016-11-15 08:38] VITALS: BP 173/81
[2016-11-15 10:35] LABS: CREATINE KINASE 53 UL (21-232)
[2016-11-15 10:37] LABS: TROPONIN-I < 0.017 ng/mL (0.000-0.060)
[2016-11-15 12:36] VITALS: BP 165/79
--- NOTE | 2016-11-15 13:10 | NUR ---
1301-GI PREP STARTED. ENCOURAGED PATIENT TO DRINK MUCH HE CAN TO CLEAN THE COLON. WILL GET PERMITS SIGNED LATER THIS AFTERNOON.
--- NOTE | 2016-11-15 14:20 | NUR ---
PATIENT IN CHAIR WANTING TO GO BACK TO BED. WENT AND GOT THERAPY TO HELP AND PATIENT IS BACK IN THE BED ALREADY. I ASSUME THE PLACED PATIENT BACK TO BED. I ASKED THAT SHE LET THERAPY DO THIS THERE IS A FALL RISK INVOLVED. WILL CONTINUE TO MONITOR.
--- NOTE | 2016-11-15 15:00 | NUR ---
PERMITS FOR PROCEDURE OF COLONOSCOPY WITH TIVA SIGNED AND WITNESSED. PLACED IN CHART.
--- NOTE | 2016-11-15 15:16 | NUR ---
DRESSING TO LEFT HAND, AND BILATERAL STUMPS CHANGED ORDERED.
--- NOTE | 2016-11-15 15:21 | NUR ---
PATIENT WANTED ME TO CALL FIDENCIO CASTILLO [phone]. TRANSFERRED CALL TO ROOM.
--- NOTE | 2016-11-15 16:08 | NUR ---
PATIENT ON BEDPAN AGAIN. COLON PREP IS STARTING TO WORK, STILL TRYING TO DRINK ORAL PREP ALONG WITH APPLE JUICE. DENIES NEEDS AT PRESENT TIME.
[2016-11-15 16:23] VITALS: BP 177/98
--- NOTE | 2016-11-15 17:21 | NUR ---
COMPLAINTS OF LEG AND HAND PAIN 01/10. NORCO GIVEN PER REQUEST ORDERED. STILL ENCOURAGING PATIENT TO DRINK HIS ORAL PREP. PATIENT REPORTS THAT "DR SAID I HAVE UNTIL 8 AM TO DRINK THIS. I INFORMED THE PATIENT THAT HE HAD UNTIL MIDNIGHT AND HE NEEDED TO HAVE CLEAR LIQUID FROM HIS RECTUM OR THE PROCEDURE MAY HAVE TO BE DELAYED.
--- NOTE | 2016-11-15 19:57 | NUR ---
PT IS AWAKE IN BED, ASSISTED PT ON BED MCNEIL. EXPRESSED IMPORTANCE OF FINISHING GO LYTELY TO HAVE COLONOSOPY TOMORROW. PT DOES NOT SEEM IN DISTRESS. BED IN LOW POSITION, CALL LIGHT IN REACH
[2016-11-15 20:00] VITALS: BP 157/75
[2016-11-15 22:51] LABS: INR 3.44 (0.85-1.17)
--- NOTE | 2016-11-16 02:43 | NUR ---
PT LYING IN BED ON LT SIDE, EVEN RISE AND FALL OF CHEST, NO SIGNS OF DISTRESS OR LABORED BREATHING SEEN, CONTINUE WITH PLAN OF CARE
--- NOTE | 2016-11-16 03:10 | NUR ---
CALL LIGHT IN REACH, WILL CONTINUE WITH PLAN OF CARE. 73 SR ON TELEMETRY
[2016-11-16 04:00] VITALS: BP 143/72
[2016-11-16 06:49] LABS: BASOPHILS 0.2 % (0-2); EOSINOPHILS 3.8 % (0-7); HEMATOCRIT 29.2 % (42.0-54.0); HEMOGLOBIN 9.6 g/dL (13.5-17.5); IMMATURE GRANULOCYTES 0.3 % (0-5); LYMPHOCYTES 9.2 % (15-50); MCH 30.9 pg (26.0-34.0); MCHC 32.9 g/dL (31.0-37.0); MCV 93.9 fL (80.0-100.0); MEAN PLATELET VOLUME 9.3 fL (7.4-10.4); MONOCYTES 6.8 % (2-11); NEUTROPHILS 79.7 % (40-80); RBC 3.11 10x6/uL (4.20-6.10); RDW 17.3 % (11.5-14.5); WBC 5.8 10x3/uL (4.8-10.8)
[2016-11-16 06:53] LABS: PLATELET COUNT 174 10x3/uL (130-400)
[2016-11-16 07:07] LABS: INR 3.09 (0.85-1.17); PROTIME 32.2 SECONDS (11.6-15.0)
[2016-11-16 07:10] LABS: ANION GAP 16.4 mmol/L (8-16); CALCIUM 8.4 mg/dL (8.5-10.1); CARBON DIOXIDE 25.9 mmol/L (21.0-32.0); CREATININE - SERUM 9.3 mg/dL (0.6-1.3); PHOSPHOROUS 5.6 mg/dL (2.5-4.9); POTASSIUM - SERUM 3.3 mmol/L (3.5-5.1)
--- NOTE | 2016-11-16 07:32 | NUR ---
AM ROUNDS- PT IN BED, WITH EYES CLOSED, BED LOW AND WHEELS LOCKED, BED RAILS X2, RT FA IV SL, CALL LIGHT IN REACH, NAD NOTED, WILL CONTINUE TO MONITOR.
[2016-11-16 08:00] VITALS: BP 159/77
--- NOTE | 2016-11-16 09:38 | NUR ---
AM MEDS GIVEN AT THIS TIME. NORCO 7MG GIVEN AT THIS TIME FOR PAIN LEVEL OF 8/10. PT DENIES ANY NEEDS AT THIS TIME. CALL LIGHT IN REACH, NAD NOTED, WILL CONTINUE TO MONITOR.
[2016-11-16 12:00] VITALS: BP 182/87
--- NOTE | 2016-11-16 14:50 | NUR ---
PT TRANSFEREED TO GI LAB, VIA BED, NAD NOTED.
--- NOTE | 2016-11-16 16:00 | NUR ---
PT TRANSFERED BACK TO ROOM 212, VIA BED, VITAL SIGNS STABLE. PROVIDED DRESSING CHANGE TO BILAT STUMPS AND LT HAND. PT DENIES ANY OTHER NEEDS AT THIS TIME. CALL LIGHT IN REACH, NAD NOTED, WILL CONTINUE TO MONITOR.
[2016-11-16 16:41] VITALS: BP 160/74
--- NOTE | 2016-11-16 19:00 | NUR ---
REPORT RECEIVED. ASSESSMENT COMPLETE PER FLOW SHEET. ALERT AND ORIENTED TO PERSON, TIME, AND PLACE. MUCOUS MEMBRANES MOIST. S1S2 PRESENT. 5 LEAD TELEMETRY MONITORING CONTROLLED A-FIB RATE OF 73. LUNG SOUNDS CLEAR ALL QUADRANTS. BS ACTIVE X4. BILAT HANDS AMPUTATED FINGERS. BKA. L STUMP, DRESSING. REPORTS NO PAIN AT THIS TIME. L ARM RESERVE. L SUBCLAVIAN HEMOSPLIT. SEE FLOW SHEET FOR COMPLETE ASSESSMENT. BED IN LOWEST POSITION. CALL LIGHT WITHIN REACH.
[2016-11-16 20:00] VITALS: BP 142/76
--- NOTE | 2016-11-16 20:00 | NUR ---
ASSESSMENT PER FLOWSHEET. VOICE NO CO AT TIME. BL BKA NOTED WITH DRSG INTACT.
--- NOTE | 2016-11-16 20:18 | NUR ---
LAYING IN BED, AWAKE. MEDS ADMINISTERED PER EMAR. SANDWICH TRAY PROVIDED PER REQUEST. DENIES FURTHER NEEDS AT THIS TIME. CALL LIGHT WITHIN REACH. BED IN LOWEST POSITION.
--- NOTE | 2016-11-16 22:00 | NUR ---
LAYING IN BED SLEEPING. NO DISTRESS NOTED. CALL LIGHT WITHIN REACH. BED IN LOWEST POSITION.
--- NOTE | 2016-11-16 23:20 | NUR ---
REPOSITIONED FOR COMFORT. DENIES FURTHER NEEDS AT THIS TIME. CALL LIGHT WITHIN REACH. BED IN LOWEST POSITION.
[2016-11-17] VITALS: BP 161/80
--- NOTE | 2016-11-17 00:32 | NUR ---
SLEEPING NO DISTRESS NOTED. SR UP X 2. CALL LIGHT WITHIN REACH.
--- NOTE | 2016-11-17 02:30 | NUR ---
LAYING IN BED SLEEPING. NO DISTRESS NOTED. BED IN LOWEST POSITION. CALL LIGHT WITHIN REACH.
--- NOTE | 2016-11-17 03:41 | NUR ---
SLEEPING NO DISTRESS NOTED. SR UP X 2.
[2016-11-17 04:00] VITALS: BP 161/80
--- NOTE | 2016-11-17 04:51 | NUR ---
LAYING IN BED SLEEPING. NO DISTRESS NOTED. BED IN LOWEST POSITION. CALL LIGHT WITHIN REACH.
--- NOTE | 2016-11-17 06:00 | NUR ---
LAYING IN BED AWAKE, NO DISTRESS NOTED AT THIS TIME. DENIES ANY NEEDS. CALL LIGHT WITHIN REACH. BED IN LOWEST POSITION.
[2016-11-17 06:05] LABS: INR 3.01 (0.85-1.17); PROTIME 31.4 SECONDS (11.6-15.0)
[2016-11-17 06:09] LABS: BASOPHILS 0.2 % (0-2); EOSINOPHILS 2.4 % (0-7); HEMATOCRIT 30.3 % (42.0-54.0); HEMOGLOBIN 9.8 g/dL (13.5-17.5); IMMATURE GRANULOCYTES 0.2 % (0-5); LYMPHOCYTES 6.2 % (15-50); MCH 30.6 pg (26.0-34.0); MCHC 32.3 g/dL (31.0-37.0); MCV 94.7 fL (80.0-100.0); MEAN PLATELET VOLUME 9.2 fL (7.4-10.4); MONOCYTES 6.2 % (2-11); NEUTROPHILS 84.8 % (40-80); PLATELET COUNT 185 10x3/uL (130-400); RDW 17.3 % (11.5-14.5)
[2016-11-17 06:24] LABS: ANION GAP 19.1 mmol/L (8-16); CALCIUM 8.1 mg/dL (8.5-10.1); CARBON DIOXIDE 23.6 mmol/L (21.0-32.0); CREATININE - SERUM 10.7 mg/dL (0.6-1.3); PHOSPHOROUS 6.2 mg/dL (2.5-4.9); POTASSIUM - SERUM 3.7 mmol/L (3.5-5.1)
[2016-11-17 06:27] LABS: WBC 8.3 10x3/uL (4.8-10.8)
--- NOTE | 2016-11-17 08:22 | NUR ---
AM MEDS GIVEN AT THIS TIME. PT IN BED, FIXING TO EAT BREAKFAST, DENIES ANY NEEDS AT THIS TIME. CALL LIGHT IN REACH, NAD NOTED, WILL CONTINUE TO MONITOR.
[2016-11-17] MEDS ORDERED: PROTONIX40 MG PO (09:27)
--- NOTE | 2016-11-17 10:13 | NUR ---
Patient Name: SHERITA LOCKHART Encounter No: [id number] : 1950 Primary Insurance: MEDICARE A & B Anticipated DC Date: 11-17-2016 Planned Disposition: Alf Facility External Planned Provider: [facility], MEDICARE REHAB BED DCP follow-up note: CM RECEIVED DISCHARGE ORDER, MET WITH PT IN ROOM WHO IS IN AGREEMENT WITH DISCHARGE PLAN OF RETURN TO [facility] TODAY. IMPORTANT MESSAGE FROM MEDICARE PROVIDED AND EXPLAINED. CM CONTACTED [facility], CLINICAL LIAISON FOR [facility], , WHO VERIFIED THEY WILL ACCEPT PT TODAY AND SCHEDULED VAN SHIP PILOT DISPATCHER FOR 1300 TODAY. CM NOTIFIED PT WHO REPORTS NEEDING SCRUBS TO WEAR HOME HIS PANTS AND SHIRT ARE MISSING. CM CHECKED ROOM, THERE WERE NO CLOTHING ARTICLES PRESENT. BEDSIDE NURSE NOTIFIED. CM FAXED DISCHARGE INFORMATION TO [facility] VIA [facility] AT [phone]. NURSE REPORT TO BE CALLED TO [facility] AT [phone]. [facility] VAN TO SHIP PILOT DISPATCHER PT AT 1300 HOURS TODAY. Ian Brown, CASE MANAGEMENT
--- NOTE | 2016-11-17 10:56 | NUR ---
PROVIDED DRESSING CHANGE TO RIGHT AND LEFT STUMP, AND ALSO TO LT HAND, PT TOLERATED PROCEDURE WELL. DENIES ANY NEEDS AT THIS TIME. CALL LIGHT IN REACH, NAD NOTED, WILL CONTIUE TO MONITOR.
--- NOTE | 2016-11-17 12:24 | NUR ---
PROVIDED VERBAL AND WRITTEN DISCHAGE TEACHING TO PT. PT VERBALIZED UNDERSTANDING REGARDING DICHARGE TEACHING, D.C RT FA IV, TIP INTACT, REMOVED HEART MONITOR AND TAKEN TO [employer] SALES REPRESENTATIVE. PT UP TO CHAIR, DENIES ANY NEEDS AT THIS TIME. CALL LIGHT IN REACH, NAD NOTED, WILL CONTINUE TO MONITOR.
--- NOTE | 2016-11-17 12:31 | NUR ---
CALLED [facility] AT [phone] AND GAVE REPORT TO YAJAIRA BEST.
[2016-11-17 13:08] VITALS: BP 147/93
--- NOTE | 2016-11-17 14:20 | NUR ---
[facility] STAFF HERE TO PICK PT UP. PT LEFT UNIT VIA WHEELCHAIR, NAD NOTED.
== END 2016-11-17 14:21 | DRG 377 ==
LOC: D.ICU 16:53 → D.M2 16:53
PROVIDERS: Emergency Medicine; Internal Medicine Gastroenterology; ADMIT Internal Medicine Nephrology
PROC: 0DB68ZX Excision of Stomach, Via Natural or Artificial Opening Endoscopic, Diagnostic (ICD-10-PCS; 2016-11-10)
PROC: 5A1D60Z (ICD-10-PCS; principal; 2016-11-10 11:30)
PROC: 0DBN8ZZ Excision of Sigmoid Colon, Via Natural or Artificial Opening Endoscopic (ICD-10-PCS; 2016-11-16)
DX: K92.2 Gastrointestinal hemorrhage, unspecified (principal); N18.6 End stage renal disease; I12.0 Hypertensive chronic kidney disease with stage 5 chronic kidney disease or end stage renal disease; D68.2 Hereditary deficiency of other clotting factors; D62 Acute posthemorrhagic anemia; E11.22 Type 2 diabetes mellitus with diabetic chronic kidney disease; E11.65 Type 2 diabetes mellitus with hyperglycemia; Z99.2 Dependence on renal dialysis; I95.9 Hypotension, unspecified; Z79.01 Long term (current) use of anticoagulants; D63.1 Anemia in chronic kidney disease; I48.91 Unspecified atrial fibrillation; K29.70 Gastritis, unspecified, without bleeding; K31.819 Angiodysplasia of stomach and duodenum without bleeding; R41.0 Disorientation, unspecified; D12.5 Benign neoplasm of sigmoid colon; K64.8 Other hemorrhoids; I99.8 Other disorder of circulatory system; T87.52 Necrosis of amputation stump, left upper extremity; K57.90 Diverticulosis of intestine, part unspecified, without perforation or abscess without bleeding; Z89.511 Acquired absence of right leg below knee; Z86.73 Personal history of transient ischemic attack (TIA), and cerebral infarction without residual deficits

== ENCOUNTER 2016-12-16 19:39 | Inpatient (IN) | payer MEDICARE ==
[~2016-12-16] VITALS: Ht 152.4 cm; Wt 95.2 kg
[2016-12-16 19:00] VITALS: BP 114/68
[~2016-12-16 19:39] MED LIST changes: +AMOXICILLIN500 M1 PO; +ISOSORBIDE MONO30 M1 PO; +MULTIPLE VITAMI1 TA1 PO; +PROMOD LIQUID P30 M1 PO
--- NOTE | 2016-12-16 20:30 | NUR ---
PT ARRIVED ON FLOOR AT THIS TIME VIA WHEEL CHAIR PROVIDED ICE PER REQUEST DENIES FURTHER NEEDS AT THIS TIME
[2016-12-17] VITALS: BP 152/49
--- NOTE | 2016-12-17 03:30 | NUR ---
PT IN BED RESTING AROUSES TO VOICE DENIES NEEDS AT THIS TIME WILL CONTINUE TO MONITOR
[2016-12-17 04:00] VITALS: BP 157/72
--- NOTE | 2016-12-17 04:31 | NUR ---
FLATWORK FINISHER HAND AT BEDSIDE TO OBTAIN VITALS, CALL LIGHT IN REACH. WILL CONTINUE TO MONITOR.
[2016-12-17 06:33] LABS: BASOPHILS 0.2 % (0-2); EOSINOPHILS 1.9 % (0-7); HEMATOCRIT 34.5 % (42.0-54.0); LYMPHOCYTES 9.9 % (15-50); MCH 30.9 pg (26.0-34.0); MCHC 31.9 g/dL (31.0-37.0); MCV 96.9 fL (80.0-100.0); MONOCYTES 11.6 % (2-11); NEUTROPHILS 76.4 % (40-80); RBC 3.56 10x6/uL (4.20-6.10); RDW 18.4 % (11.5-14.5); WBC 4.7 10x3/uL (4.8-10.8)
[2016-12-17 06:42] LABS: PLATELET COUNT 128 10x3/uL (130-400)
[2016-12-17 06:55] LABS: ALBUMIN 3.1 g/dL (3.4-5.0); ANION GAP 13.2 mmol/L (8-16); BILIRUBIN - TOTAL 0.64 mg/dL (0.2-1.3); CALCIUM 8.4 mg/dL (8.5-10.1); CARBON DIOXIDE 28.4 mmol/L (21.0-32.0); CREATININE - SERUM 7.4 mg/dL (0.6-1.3); POTASSIUM - SERUM 3.6 mmol/L (3.5-5.1); PROTEIN - SERUM 6.9 g/dL (6.4-8.2)
--- NOTE | 2016-12-17 07:00 | NUR ---
PT IN BED RESTING WITH EYES CLOSED. AWOKEN AND PT ALERT AND ORIENTED X4. LEFT HAD HAD DRESSING WITH MISSIN 4TH AND 5TH FINGERS. DRESSING C/D/I. DRESSING TO BILATERAL STUMPS BOTH C/D/I. PT HAS OLD FISTULAS TO LEFT AND RIGHT ARMS NOTED WITH ABCSENT BRUITS AND THRILL. HEMASPLIT NOTED TO LEFT SUBCLAVIA. DRESSING C/D/I. PT STATED THAT AT THE CARE HOME, HIS INCISIONS IN HIS HAND HAD PURULENT DRAINAGE. PT ON CLEAR LIQUID DIET AND THERE WAS A TO GO BOX CLOSED AT BED SIDE. PT REFUSED TO LEFT IT BE THROWN AWAY. EXPALINED THAT HE IS ON A CLEAR LIQUID DIET AND WHY AND PT STILL REFUSED. CALL LIGHT IN REACH. WILL CONT POC.
[2016-12-17 08:00] VITALS: BP 165/73
--- NOTE | 2016-12-17 09:17 | NUR ---
WOUND CULTURE SPECIMENS TAKEN TO LAB.
--- NOTE | 2016-12-17 09:23 | NUR ---
Wound care consult: Pt had amputation of left #3 & #4 fingers on 09/04/16. There is a chronic non-healing area to this site. It measures 2.5cm x 2cm x 0.3cm. The wound bed is 80% necrotic with 20% pale pink in center. As per Dr. wOen, I cultured the wound. Also noted another wound on the left index finger that is draining. This area measures 0.3cm x 0.3cm. Pt is bilateral amputee. Left stump has an open area measuring 2.5cm x 3cm. It actually looks better than it did on his last hospital visit. All the above wounds were cleansed with wound cleanser and Maxorb AG was applied to the wound beds. They were covered with 4x4s and secured with kerlix. The right stump was wrapped with kerlix also---for padding. Wound care will continue monitoring.
--- NOTE | 2016-12-17 09:30 | NUR ---
PT ASKED WHY NO ONE BROUGHT HIM ANY BREAKFAST. EXPLAIN THAT HIS BREAKFAST WAS DELIVERED AND THAT HE WAS ON A CLEAR LIQUID DIET. "WELL FINE I GUESS ILL JUST FINISH MY SPAGETTI". PT ADVISED NOT TO EAT FOOD BUT HE REFUSED.
--- NOTE | 2016-12-17 10:14 | NUR ---
WENT INTO PT'S ROOM AND HE WAS IN W/C IN FRONT OF A CHAIR. ASKED IF I COULD HELP HIM PULL UP HIS PANTS. ASSISTED PT AND HE STATED HE WAS GOING DOWN STAIRS REAL FAST. WHENEVER ASKED WHAT HE WAS DOING, HE JUST STATED HE WILL BE RIGHT BACK. LEFT FLOOR VIA W/C.
--- NOTE | 2016-12-17 10:45 | NUR ---
PT BACK IN ROOM WITH A COKE AT HIS BEDSIDE TABLE. EXPLAINED THAT COKE IS ADVISED AGAINST HIS RENAL DIET. "IF I GOT MONEY WITH ME, IM GONNA BUY WHAT I WANT". REFUSED TO COKE BE REMOVED FROM ROOM.
--- NOTE | 2016-12-17 10:49 | NUR ---
SPOKE WITH RENAL DIRECTOR SUPPLY ABOUT ADVANCING DIET. SHE WILL LOOK INTO IT.
--- NOTE | 2016-12-17 11:49 | NUR ---
PT SHOWED ME A TISSUE OF BLOODY SPEUTUM IN A TISSUE THAT HE COUGHED UP. DENIES PAIN AT THIS TIME. PO ABT GIVEN. CALL LIGHT IN REACH.
--- NOTE | 2016-12-17 11:56 | NUR ---
PT RESTING IN BED WITH EYES CLOSED WITH 0 S/SX OF DISTRESS/DISCOMFORT NOTED. BREATHING NORMAL AND UNLABORED. CALL LIGHT IN REACH.
[2016-12-17 12:00] VITALS: BP 149/69
--- NOTE | 2016-12-17 13:41 | NUR ---
Dialysis Coordinator: CHRISTIAN Foster TTS @ 10:30. Records forwarded to home unit. SOPHY VELA.
[2016-12-17 15:03] VITALS: Ht 152.4 cm; Wt 95.2 kg
[2016-12-17 16:00] VITALS: BP 161/79
--- NOTE | 2016-12-17 16:40 | NUR ---
HEMISPLIT DRESSING CHANGED. DRESSING C/D/I.
--- NOTE | 2016-12-17 16:44 | NUR ---
PT STATED THAT HE WAS HUNGRY AND DOES NOT WANT A LIQUID DIET. DENIES NAUSEA/VOMITING. KINDERGARTNER NOTIFIED AND OK A REG RENAL DIET.
--- NOTE | 2016-12-17 16:50 | NUR ---
Patient Name: SHERITA LOCKHART Admission Status: Elective Accout number: [id number] Admission Date: 12-16-2016 : 1950 Admission Diagnosis: Attending: FAY Current LOS: 1 Anticipated DC Date: Planned Disposition: Detention Facility Primary Insurance: MEDICARE A & B PLANNED EXTERNAL PROVIDER: [facility], MEDICARE REHAB BED Discharge Planning Comments: * Is the patient Alert and Oriented? Yes 0 * How many steps to enter\exit or inside your home? NONE 0 * PCP [facility] AND [facility] 0 * Pharmacy [facility] 0 * Preadmission Environment Detention Facility 0 * Facility Name [facility] 0 * ADLs Partial Dependent 0 * Partial ADLs (Assistance needed) Bathing Medication Management 0 * Equipment Other Wheelchair 0 * Other Equipment ALL MEDICAL EQUIPMENT PROVIDED BY FACILITY PROSTHETIC LEG PT'S WHEELCHAIR IN ROOM 0 * List name and contact numbers for known caregivers / representatives who currently or will assist patient after discharge: STACEY BROWN, FRIEND, TAWANA LOCKHART, DTR, 0 * Community resources currently utilized Other 0 * Please name any agencies selected above. OUTPATIENT DIALYSIS, [facility], MWF AT 1030AM, HALF-WAY VAN TRANSPORTATION 0 * Additional services required to return to the preadmission environment? No 0 * Can the patient safely return to the preadmission environment? Yes 0 * Has this patient been hospitalized within the prior 30 days at any hospital? Yes 0 CM MET WITH PT IN ROOM TO DISCUSS DISCHARGE PLANNING AND NEEDS. PT REPORTS STILL BEING IN REHAB AT [facility]; PT REPORTS HE IS SAFE THERE AND WILL RETURN AT DISCHARGE. PT REPORTS ABILITY TO TRANSFER SELF FROM BED TO HIS WHEELCHAIR AND TO BED. PT REPORTS HE WILL BE FITTED SOON FOR A NEW LEG TO REPLACE HIS OLD ONE AND THEN WILL GET A NEW LEG ON THE LEFT ALSO. PT DENIES DISCHARGE NEEDS AT THIS TIME. FOR DISCHARGE, FAX DISCHARGE INFORMATION TO [facility] AT [phone]; NURSE REPORT TO BE CALLED TO [facility] AT [phone]. [facility] TO ARRANGE VAN TRANSPORTATION. Rig Builder Helper: Ian Brown
--- NOTE | 2016-12-17 18:49 | NUR ---
PT SITTING IN W/C WATCHING TV. DENIES PAIN. BREATHING NORMAL AND UNLABORED. CALL LIGHT IN REACH. WILL CONT POC.
--- NOTE | 2016-12-17 19:40 | NUR ---
PT SITTING IN CHAIR NEXT TO BED REQUESTS THAT I CALL HIS AND POA DENIES FURTHER NEEDS WILL CONTINUE TO MONITOR
[2016-12-18] VITALS: BP 122/57
--- NOTE | 2016-12-18 00:37 | NUR ---
SHALE PROCESSING TECHNICIAN AT BEDSIDE TO OBTAIN VITALS, CALL LIGHT IN REACH. WILL CONTINUE WITH PLAN OF CARE.
[2016-12-18 04:00] VITALS: BP 130/62
--- NOTE | 2016-12-18 07:48 | NUR ---
AM ROUNDING DONE WITH PATIENT APPEARING TO BE ASLEEP, LAYING ON LEFT SIDE. RESP ARE EVEN AND NON LABORED. DRESSING SEEN TO LEFT HAND , C/D/I. ON HEART MONITOR SHOWING SR, HR 72. ON ROOM AIR. RESERVE LEFT ARM WITH AVF. LEFT CHEST HEMISPLIT SEEN WITH DRESSING C/D/I/. WILL CPOC.
[2016-12-18 08:00] VITALS: BP 194/83
--- NOTE | 2016-12-18 12:41 | NUR ---
1240-TO DIALYSIS VIA BED.
--- NOTE | 2016-12-18 14:46 | NUR ---
STILL IN DIALYSIS AT THIS TIME.
--- NOTE | 2016-12-18 16:14 | NUR ---
RETURNS TO ROOM POST DIALYSIS.
--- NOTE | 2016-12-18 16:18 | NUR ---
NORCO GIVEN FOR PAIN TO RIGHT SIDE.
--- NOTE | 2016-12-18 16:31 | NUR ---
TRIED TO CALL PATIENT PER HIS REQUEST. "MAILBOX IS FULL"
--- NOTE | 2016-12-18 19:23 | NUR ---
PT IN BED ATTENTION FOCUSED TOWARS TELEVISION. DENIES NEEDS AT THIS TIME WILL CONTINUE TO MONITOR
[2016-12-18 20:00] VITALS: BP 177/56
--- NOTE | 2016-12-19 03:20 | NUR ---
NOTIFIED OF 14 BEATS OF V TAC AT THIS TIME PT COMPLAINS OF SOB 3L O2 APPLIED
[2016-12-19 04:00] VITALS: BP 158/61
--- NOTE | 2016-12-19 07:05 | NUR ---
RECEIVED REPORT. ASSUMED CARE OF PATIENT. PATIENT OOB TO WHEELCHAIR. BILATERAL BKA WITH DRESSINGS INTACT. DENIES NEEDS. NO DISTRESS. CALL LIGHT PLACED WITHIN REACH.
[2016-12-19 08:00] VITALS: BP 172/84
[2016-12-19 08:27] LABS: BASOPHILS 0.2 % (0-2); EOSINOPHILS 3.1 % (0-7); HEMATOCRIT 33.9 % (42.0-54.0); HEMOGLOBIN 10.9 g/dL (13.5-17.5); IMMATURE GRANULOCYTES 0.4 % (0-5); MCH 31.1 pg (26.0-34.0); MCHC 32.2 g/dL (31.0-37.0); MCV 96.6 fL (80.0-100.0); MEAN PLATELET VOLUME 9.9 fL (7.4-10.4); MONOCYTES 6.9 % (2-11); NEUTROPHILS 79.4 % (40-80); RBC 3.51 10x6/uL (4.20-6.10); RDW 18.2 % (11.5-14.5); WBC 5.2 10x3/uL (4.8-10.8)
[2016-12-19 08:39] LABS: PLATELET COUNT 157 10x3/uL (130-400)
[2016-12-19 08:46] LABS: ALBUMIN 3.1 g/dL (3.4-5.0); ANION GAP 15.2 mmol/L (8-16); BILIRUBIN - TOTAL 0.71 mg/dL (0.2-1.3); CALCIUM 9.4 mg/dL (8.5-10.1); CARBON DIOXIDE 26.7 mmol/L (21.0-32.0); CREATININE - SERUM 8.4 mg/dL (0.6-1.3); PHOSPHOROUS 7.1 mg/dL (2.5-4.9); POTASSIUM - SERUM 3.9 mmol/L (3.5-5.1); PROTEIN - SERUM 6.6 g/dL (6.4-8.2)
[2016-12-19 12:00] VITALS: BP 139/67
--- NOTE | 2016-12-19 12:53 | NUR ---
DRESSING CHANGES PROVIDED TO BILATERAL BKA AND LEFT HAND AT THIS TIME. TOLERATED DRESSING CHANGE WELL. NO DISTRESS.
--- NOTE | 2016-12-19 15:01 | NUR ---
MEDICATED FOR PAIN AT THIS TIME. NO DISTRESS. REQUESTING PINK LEMONADE FROM THE KITCHEN.
--- NOTE | 2016-12-19 15:46 | NUR ---
SPEECH COMPLETED EVALUATION AT BEDSIDE WITH PATIENT AT THIS TIME. NO DISTRESS.
[2016-12-19 16:00] VITALS: BP 152/72
--- NOTE | 2016-12-19 18:39 | NUR ---
PATIENT SITTING UP IN BED, CALL LIGHT WITHIN REACH. NO DISTRESS.
[2016-12-19 19:00] VITALS: BP 175/66
--- NOTE | 2016-12-19 19:34 | NUR ---
RESUMED CARE OF PT, LYING IN BED WITH EYES CLOSED RESPIRATIONS EVEN AND UNLABORED ON ROOM AIR. 69 SR WITH PVCS ON TELEMETRY. BILATERAL LEG AND LEFT HAND DRESSING C/D/I. NO NEEDS NOTED AT THIS TIME, WILL CONTINUE TO MONITOR. SEE NURSE ASSESSMENT. CALL LIT IN REACH.
--- NOTE | 2016-12-19 22:22 | NUR ---
NIGHT MEDS GIVEN, PAIN PILL GIVEN. WILL CONTINUE TO MONITOR.
[2016-12-20] VITALS: BP 146/45
--- NOTE | 2016-12-20 02:14 | NUR ---
NORCO 10 GIVEN FOR RIGHT ARM PAIN. ZOSYN INFUSING. WILL CONTINUE TO MONITOR.
[2016-12-20 04:00] VITALS: BP 104/63
--- NOTE | 2016-12-20 06:21 | NUR ---
NO CHANGES FROM PREVIOUS ASSESSMENT, CALL LIGHT IN REACH. WILL CONTINUE TO MONITOR.
--- NOTE | 2016-12-20 07:05 | NUR ---
RECEIVED REPORT. ASSUMED CARE OF PATIENT. CALL LIGHT WITHIN REACH. PATIENT SITTING UP IN BED WITH EYES CLOSED. EASILY AROUSED. RESP EVEN AND UNLABORED. NO DISTRESS. DENIES NEEDS AT THIS TIME.
[2016-12-20 08:00] VITALS: BP 193/74
--- NOTE | 2016-12-20 08:44 | NUR ---
MEDICATED FOR NAUSEA AT THIS TIME. SITTING TO SIDE OF BED. CALL LIGHT WITHIN REACH.
[2016-12-20 09:09] LABS: BASOPHILS 0.7 % (0-2); HEMATOCRIT 34.2 % (42.0-54.0); IMMATURE GRANULOCYTES 0.2 % (0-5); LYMPHOCYTES 6.4 % (15-50); MCH 30.9 pg (26.0-34.0); MCHC 32.2 g/dL (31.0-37.0); MCV 96.1 fL (80.0-100.0); MEAN PLATELET VOLUME 9.7 fL (7.4-10.4); MONOCYTES 9.9 % (2-11); NEUTROPHILS 79.8 % (40-80); PLATELET COUNT 149 10x3/uL (130-400); RBC 3.56 10x6/uL (4.20-6.10); RDW 17.9 % (11.5-14.5); WBC 4.1 10x3/uL (4.8-10.8)
[2016-12-20 09:39] LABS: ALBUMIN 3.2 g/dL (3.4-5.0); ANION GAP 16.9 mmol/L (8-16); BILIRUBIN - TOTAL 0.74 mg/dL (0.2-1.3); CARBON DIOXIDE 26.9 mmol/L (21.0-32.0); CREATININE - SERUM 9.9 mg/dL (0.6-1.3); POTASSIUM - SERUM 3.8 mmol/L (3.5-5.1); PROTEIN - SERUM 6.5 g/dL (6.4-8.2)
--- NOTE | 2016-12-20 11:31 | NUR ---
ASSISTED PATIENT FROM BATHROOM TO WHEELCHAIR. NO DISTRESS. PATIENT NOW WITH ATTENTION TOWARD TELEVISION. CALL LIGHT WITHIN REACH.
--- NOTE | 2016-12-20 11:40 | NUR ---
CALLED PHARMACY AND SPOKE TO JOON AT 1125 TO REQUEST RENVELA POWDER FOR PATIENT IT IS NOT ON FLOOR IN PATIENT CASSETTE AT THIS TIME.
--- NOTE | 2016-12-20 12:09 | NUR ---
DRESSING CHANGES PROVIDED TO BILATERAL BKA'S AND LEFT HAND AT THIS TIME. TOLERATED DRESSING CHANGES WELL. NO DISTRESS.
--- NOTE | 2016-12-20 13:12 | NUR ---
MEDICATED FOR PAIN AT THIS TIME. NO DISTRESS. SITTING UP IN WHEELCHAIR CONSUMING NOON MEAL. CALL LIGHT WITHIN REACH.
--- NOTE | 2016-12-20 13:16 | NUR ---
MEDICATED FOR NAUSEA AT THIS TIME.
--- NOTE | 2016-12-20 14:01 | NUR ---
PATIENT RESTING WITH EYES CLOSED. EASILY AROUSED. PATIENT NOTED TO HAVE A RUN OF VTACH ON TELE. PATIENT STATES HE FEELS FINE. PATIENT REQUESTING BATH AT THIS TIME. NO DISTRESS. CALL LIGHT WITHIN REACH.
--- NOTE | 2016-12-20 14:02 | NUR ---
PATIENT IN NORMAL SINUS RHYTHM, RATE OF 70 AT THIS TIME.
[2016-12-20 16:00] VITALS: BP 138/59
[2016-12-20 19:56] VITALS: BP 140/71
--- NOTE | 2016-12-20 20:05 | NUR ---
RESUMED CARE OF PT, UP IN WHEELCHAIR RESPIRATIONS EVEN AND UNLABORED ON ROOM AIR. 68 SR ON TELEMETRY. RIGHT AC SALINE LOCKED. SPOKE WITH MARION IN RADIOLOGY, NEW ORDERS OBTAINED THROUGH DR. DONOVAN. PLANS FOR THORACENTESIS IN AM. DRESSINGS TO LEGS AND LEFT HAND C/D/I. NO NEEDS AT THIS TIME, CALL LIGHT IN REACH. WILL CONTINUE TO MONITOR. SEE NURSE ASSESSMENT.
--- NOTE | 2016-12-21 00:45 | NUR ---
LYING IN BED WITH EYES CLOSED, CALL LIGHT IN REACH. WILL CONTINUE TO MONITOR.
--- NOTE | 2016-12-21 02:35 | NUR ---
RIGHT LEG DRESSING REDRESSED. OLD FALLEN OFF DURING TRANSFER FROM TOILET TO CHAIR TO BED.
[2016-12-21 05:57] LABS: BASOPHILS 0.2 % (0-2); EOSINOPHILS 3.1 % (0-7); HEMATOCRIT 29.9 % (42.0-54.0); HEMOGLOBIN 9.7 g/dL (13.5-17.5); IMMATURE GRANULOCYTES 0.2 % (0-5); LYMPHOCYTES 6.1 % (15-50); MCH 30.9 pg (26.0-34.0); MCHC 32.4 g/dL (31.0-37.0); MCV 95.2 fL (80.0-100.0); MEAN PLATELET VOLUME 9.3 fL (7.4-10.4); MONOCYTES 7.8 % (2-11); NEUTROPHILS 82.6 % (40-80); PLATELET COUNT 141 10x3/uL (130-400); RBC 3.14 10x6/uL (4.20-6.10); RDW 17.4 % (11.5-14.5); WBC 4.2 10x3/uL (4.8-10.8)
[2016-12-21 06:08] LABS: APTT 37.2 SECONDS (22.8-39.4); INR 2.5 (0.85-1.17); PROTIME 27.1 SECONDS (11.6-15.0)
[2016-12-21 06:10] LABS: BILIRUBIN - TOTAL 0.71 mg/dL (0.2-1.3); CALCIUM 8.8 mg/dL (8.5-10.1); CARBON DIOXIDE 25.9 mmol/L (21.0-32.0); PHOSPHOROUS 7.9 mg/dL (2.5-4.9); POTASSIUM - SERUM 3.9 mmol/L (3.5-5.1); PROTEIN - SERUM 6.5 g/dL (6.4-8.2)
--- NOTE | 2016-12-21 06:39 | NUR ---
NO CHANGES FROM PREVIOUS ASSESSMENT, REMAINS NPO. NORCO 10 GIVEN FOR RIGHT SIDE PAIN. WILL CONTINUE TO MONITOR.
--- NOTE | 2016-12-21 07:15 | NUR ---
RESTING QUIETLY RESP UNLABORED NAD NOTED
[2016-12-21 08:00] VITALS: BP 169/65
--- NOTE | 2016-12-21 09:59 | NUR ---
ASSESSMENT COMPLETED. TELEMERTY SHOWS SR WITH A RATE OF 69. 02 PRN. LEFT SIDED HEMOSPLIT. RESERVE LEFT ARM. BILATERAL BKA. LEFT AND RIGHT DRSG TO HANDS WHERE FINGERS REMOVED. USES WHEELCHAIR. SR UP WITH CALL LIGHT IN REACH WITH SR UP. WILL MONITOR
--- NOTE | 2016-12-21 16:51 | NUR ---
Patient Name: SHERITA LOCKHART Encounter No: [id number] : 1950 Primary Insurance: MEDICARE A & B Anticipated DC Date: Planned Disposition: Long Term Facility External Planned Provider: [facility], MEDICARE REHAB BED DCP follow-up note: CM RECEIVED ORDER TO OBTAIN PREVIOUS SLEEP STUDY AND ARRANGE CPAP. CM CALLED [facility], , SPOKE TO CESIA IN RESPIRATORY, REQUESTED SLEEP STUDY. CM RECEIVED STUDY VIA FAX, PLACED IN FRONT OF PT'S CHART. CM CALLED EFE, CLINICAL LIAISON FOR [facility], , INFORMED OF SLEEP STUDY BEING OBTAINED AND ORDER TO ARRANGE CPAP. EFE WILL CALL FACILITY AND DETERIMINE IF THE FACILITY WILL ARRANGE IT FOR PT'S RETURN TO REHAB OR IF CM WILL NEED TO ARRANGE OTHERWISE. CM FAXED REFERRAL AND SLEEP STUDY TO [facility] VIA [facility] AT [phone]. CM WAITING DETERMINATION IF CPAP ARRANGEMENTS CAN BE MADE BY [facility]. FOR DISCHARGE, FAX DISCHARGE INFORMATION TO [facility] AT [phone]; NURSE REPORT TO BE CALLED TO [facility] AT [phone]. [facility] TO ARRANGE VAN TRANSPORTATION. Punch Operator: Ian Brown
[2016-12-21 19:00] VITALS: BP 146/51
--- NOTE | 2016-12-21 22:07 | NUR ---
HS MEDS GIVEN WITH FRSH ICE WATER. NORCO 1 TAB GIVEN FOR C/O PAIN.
--- NOTE | 2016-12-22 03:29 | NUR ---
RESTING WITH EYES CLOSED, RESPERATIONS EVEN, NO S/S DISTRESS NOTED.
--- NOTE | 2016-12-22 03:49 | NUR ---
RESTING IN BED WITH NO DISTSRESS. CALL LIGHT IN REACH. CPOC.
[2016-12-22 04:00] VITALS: BP 167/70
[2016-12-22 06:48] LABS: BASOPHILS 0.3 % (0-2); EOSINOPHILS 3.1 % (0-7); HEMATOCRIT 30.9 % (42.0-54.0); HEMOGLOBIN 9.9 g/dL (13.5-17.5); IMMATURE GRANULOCYTES 0.3 % (0-5); LYMPHOCYTES 6.7 % (15-50); MCH 30.7 pg (26.0-34.0); MEAN PLATELET VOLUME 9.7 fL (7.4-10.4); MONOCYTES 14.2 % (2-11); NEUTROPHILS 75.4 % (40-80); PLATELET COUNT 130 10x3/uL (130-400); RBC 3.22 10x6/uL (4.20-6.10); RDW 17.7 % (11.5-14.5); WBC 3.6 10x3/uL (4.8-10.8)
[2016-12-22 07:05] LABS: INR 2.59 (0.85-1.17); PROTIME 27.9 SECONDS (11.6-15.0)
[2016-12-22 07:07] LABS: ANION GAP 14.3 mmol/L (8-16); BILIRUBIN - TOTAL 0.64 mg/dL (0.2-1.3); CALCIUM 9.1 mg/dL (8.5-10.1); CARBON DIOXIDE 28.6 mmol/L (21.0-32.0); CREATININE - SERUM 8.5 mg/dL (0.6-1.3); POTASSIUM - SERUM 3.9 mmol/L (3.5-5.1); PROTEIN - SERUM 6.6 g/dL (6.4-8.2)
--- NOTE | 2016-12-22 07:30 | NUR ---
RESTING QUIETLY NAD NOTED
[2016-12-22 08:18] VITALS: BP 149/66
--- NOTE | 2016-12-22 10:07 | NUR ---
Patient Name: SHERTIA LOCKHART Encounter No: [id number] : 1950 Primary Insurance: MEDICARE A & B Anticipated DC Date: Planned Disposition: Alf Facility External Planned Provider: [facility], MEDICARE REHAB BED DCP follow-up note: CM RECEIVED CALL FROM EFE, CLINICAL LIAISON FOR [facility], , WHO ADVISED THAT FAX WAS RECEIVED YESTERDAY AND CPAP CAN BE ARRANGED BY [facility], THEY NEED THE SETTINGS TO ORDER THE DEVICE. FOR DISCHARGE, FAX DISCHARGE INFORMATION TO [facility] AT [phone]; NURSE REPORT TO BE CALLED TO [facility] AT [phone]. [facility] TO ARRANGE VAN TRANSPORTATION. CM WILL NEED CPAP SETTINGS TO COMPLETE CPAP ARRANGEMENTS WITH [facility]. Registered Associate: Ian Brown
[2016-12-22 10:16] LABS: ANA REFLEX - DIRECT Negative (Negative)
[2016-12-22 12:23] VITALS: BP 149/77
[2016-12-22 17:06] VITALS: BP 162/77
--- NOTE | 2016-12-22 18:45 | NUR ---
ASSESSMENT COMPLETED. BILATERAL AKA. DRSG TO LEFT AND RIGHT HANL LEFT HEMISPLIT. O2 NOT IN USE. SR UP WITH CALL LIGHT IN REACH
--- NOTE | 2016-12-22 18:46 | NUR ---
NO CHANGES THIS 12 HOURS
--- NOTE | 2016-12-22 21:42 | NUR ---
HS MEDS GIVEN WITH FRESH ICE WATER, NORCO 1 TAB GIVEN FOR C/O PAIN. REMINDED PT THAT HE IS NPO AFTER MN FOR THORACENTESIS IN AM.
[2016-12-23] VITALS: BP 147/47
--- NOTE | 2016-12-23 00:23 | NUR ---
PT GETTING UP TO BSC WITH ASSIST, IV PULLED PUT, TIP INTACT. WILL ATTEMPT TO RESITE ANOTHER PIV ACCESS SHORTLY.
[2016-12-23 04:00] VITALS: BP 072/43
--- NOTE | 2016-12-23 04:03 | NUR ---
AFTER SEVERAL ATTEMPTS BY 2 STAFF NURSES, UNABLE TO ESTABLISH IV ACCESS.
--- NOTE | 2016-12-23 04:22 | NUR ---
RESTING WITH EYES CLOSED, RESPERATIONS EVEN, NO S/S DISTRESS NOTED.
--- NOTE | 2016-12-23 04:46 | NUR ---
FIDEL BEST FROM ICU AT BED SIDE, 22 GAUGE PLACED TO RIGHT AC. PT TOLERATED WELL.
[2016-12-23 06:25] LABS: BASOPHILS 0.6 % (0-2); EOSINOPHILS 4.4 % (0-7); HEMATOCRIT 30.9 % (42.0-54.0); IMMATURE GRANULOCYTES 0.3 % (0-5); LYMPHOCYTES 11.2 % (15-50); MCH 30.8 pg (26.0-34.0); MCHC 32.4 g/dL (31.0-37.0); MCV 95.1 fL (80.0-100.0); MEAN PLATELET VOLUME 8.7 fL (7.4-10.4); MONOCYTES 11.2 % (2-11); NEUTROPHILS 72.3 % (40-80); PLATELET COUNT 126 10x3/uL (130-400); RBC 3.25 10x6/uL (4.20-6.10); RDW 17.2 % (11.5-14.5); WBC 3.4 10x3/uL (4.8-10.8)
[2016-12-23 06:38] LABS: INR 2.44 (0.85-1.17); PROTIME 26.6 SECONDS (11.6-15.0)
[2016-12-23 06:39] LABS: APTT 41.7 SECONDS (22.8-39.4)
[2016-12-23 06:47] LABS: ALBUMIN 3.1 g/dL (3.4-5.0); ANION GAP 17.8 mmol/L (8-16); BILIRUBIN - TOTAL 0.7 mg/dL (0.2-1.3); CALCIUM 9.3 mg/dL (8.5-10.1); CARBON DIOXIDE 24.9 mmol/L (21.0-32.0); CREATININE - SERUM 9.8 mg/dL (0.6-1.3); PHOSPHOROUS 6.5 mg/dL (2.5-4.9); POTASSIUM - SERUM 3.7 mmol/L (3.5-5.1); PROTEIN - SERUM 6.6 g/dL (6.4-8.2)
[2016-12-23 09:00] VITALS: BP 181/79
--- NOTE | 2016-12-23 09:45 | NUR ---
PT TRANSFERED TO DIALYSIS VIA BED, NAD NOTED.
[2016-12-23 10:18] LABS: ANGIOTENSIN CONVERTING ENZYME 40 U/L (14-82)
--- NOTE | 2016-12-23 10:33 | NUR ---
Patient Name: SHERITA LOCKHART Encounter No: [id number] : 1950 Primary Insurance: MEDICARE A & B Anticipated DC Date: Planned Disposition: Alf Facility External Planned Provider: [facility], MEDICARE REHAB BED DCP follow-up note: MINH SPOKE TO DR. CRUZ REGARDING CPAP SETTINGS. DR. CRUZ INDICATED THAT THE SLEEP STUDY SHOULD BE USED TO OBTAIN ANY NEEDED SETTINGS. MINH CALLED [facility], CLINICAL LIAISON FOR [facility], , WHO ADVISED THAT SHE WILL NOTIFY [facility] CM OBSERVED SLEEP STUDY WAS FROM 06/2015. [facility] CONTINUES TO WORK TO ARRANGE CPAP FOR PT AT ASSISTED [facility]. FOR DISCHARGE, FAX DISCHARGE INFORMATION TO [facility] AT [phone]; NURSE REPORT TO BE CALLED TO [facility] AT [phone]. [facility] TO ARRANGE VAN TRANSPORTATION. Cellophane Bath Mixer: Ian Brown
--- NOTE | 2016-12-23 15:29 | NUR ---
Nutrition follow-up: Diet: Renal NPO after MN for procedure PO intake has been ~60% of meals Labs reviewed +BM Wt: 196# RDN following.
[2016-12-23 16:00] VITALS: BP 164/73
--- NOTE | 2016-12-23 17:34 | NUR ---
ZOSYN IVPB HUNG AT THIS TIME. NORCO 10MG GIVEN FOR PAIN LEVEL OF 8/10. PT UP TO SIDE OF BED, FIXING TO EAT DINNER, DENIES ANY OTHER NEEDS AT THIS TIME. CALL LIGHT IN REACH, NAD NOTED, WILL CONTINUE TO MONITOR.
--- NOTE | 2016-12-23 18:13 | NUR ---
PT RAN 24 BEATS OF V-TACH, RICK ODOM NOTIFIED, NEW ORDERS FOR ONE TIME 200MG OF CORDORONE. AND TO CONSULT CARDIOLOGY IF IT HAPPENS AGAIN.
[2016-12-23 19:00] VITALS: BP 170/80
--- NOTE | 2016-12-23 22:20 | NUR ---
FFP FLOWING TO GRAVITY TO RIGHT AC PIV. VITALS STABLE. WILL CONT TO MONITOR.
[2016-12-24] VITALS: BP 168/79
--- NOTE | 2016-12-24 01:31 | NUR ---
CALL LIGHT IN REACH, WILL CONTINUE WITH PLAN OF CARE.
--- NOTE | 2016-12-24 02:10 | NUR ---
THIRD UNIT OF FFP INFUSING TO RIGHT AC PIV. VITALS STABLE. NO S/S ADVERSE REACTION NOTED.
[2016-12-24 04:00] VITALS: BP 173/76
[2016-12-24 06:45] LABS: BASOPHILS 0.6 % (0-2); EOSINOPHILS 3.1 % (0-7); HEMATOCRIT 30.5 % (42.0-54.0); HEMOGLOBIN 9.8 g/dL (13.5-17.5); LYMPHOCYTES 11.2 % (15-50); MCH 30.7 pg (26.0-34.0); MCHC 32.1 g/dL (31.0-37.0); MCV 95.6 fL (80.0-100.0); MEAN PLATELET VOLUME 9.6 fL (7.4-10.4); MONOCYTES 8.7 % (2-11); NEUTROPHILS 76.4 % (40-80); PLATELET COUNT 139 10x3/uL (130-400); RBC 3.19 10x6/uL (4.20-6.10); RDW 17.1 % (11.5-14.5); WBC 3.2 10x3/uL (4.8-10.8)
[2016-12-24 06:51] LABS: APTT 42.9 SECONDS (22.8-39.4); PROTIME 22.1 SECONDS (11.6-15.0)
[2016-12-24 06:52] LABS: INR 1.94 (0.85-1.17)
[2016-12-24 07:01] LABS: ALBUMIN 3.1 g/dL (3.4-5.0); BILIRUBIN - TOTAL 0.82 mg/dL (0.2-1.3); CALCIUM 9.4 mg/dL (8.5-10.1); CARBON DIOXIDE 29.5 mmol/L (21.0-32.0); CREATININE - SERUM 7.9 mg/dL (0.6-1.3); POTASSIUM - SERUM 3.5 mmol/L (3.5-5.1); PROTEIN - SERUM 6.8 g/dL (6.4-8.2)
--- NOTE | 2016-12-24 07:23 | NUR ---
AM ROUNDS- PT IN BED, DENIES ANY NEEDS AT THIS TIME. RESP EVEN AND UNLABORED. CALL LIGHT IN REACH, BED LOW AND WHEELS LOCKED, BEDSIDE RAILS X2, RT AC IV SL. PT DENIES ANY NEEDS AT THIS TIME. NAD NOTED, WILL CONTINUE TO MONITOR.
[2016-12-24 08:00] VITALS: BP 175/81
--- NOTE | 2016-12-24 10:17 | NUR ---
AM MEDS GIVEN, THORACENTESIS CANCEL WILL BE DONE TOMORROW. ORDER FOR 10MG OF VIT K ORDER PER DR. SANDERS'S ORDER PT UP TO WHEELCHAIR, DENIES ANY NEEDS AT THIS TIME. CALL LIGHT IN REACH, NAD NOTED, WILL CONTINUE TO MONITOR.
[2016-12-24 12:00] VITALS: BP 181/78
--- NOTE | 2016-12-24 13:44 | NUR ---
Nutrition follow-up: Diet: Renal PO intake ~70% average of meals Labs reviewed +BM Wt: 201# RDN following.
--- NOTE | 2016-12-24 14:50 | NUR ---
PROVIDED DRESSING CHANGE TO BILAT STUMPS. CLEANED WITH WOUND SOURCING ASSISTANT AND APPLIED DRY DRESSING. PT DENIES ANY NEEDS AT THIS TIME. CALL LIGHT IN REACH, NAD NOTED, WILL CONTINUE TO MONITOR.
[2016-12-24 15:36] VITALS: BP 151/76
[2016-12-24 19:00] VITALS: BP 145/88
--- NOTE | 2016-12-24 19:00 | NUR ---
ALERT/AWAKE SITTING IN WC. IV IN R AC INTACT/PATENT. DID NOT WANT ASSISTANCE BACK IN BED. STATING HE WAS GOING TO VISIT HIS AFTER MED PASS. ORIENTED TO CL FOR ANY NEEDS.
--- NOTE | 2016-12-24 20:05 | NUR ---
ADMIN NORCO PO PER REQUEST FOR C/O RT ARM AND RT FLANK PAIN LEVEL 9 ON NUMBER SCALE, DESCRIBED ACHING. NO OTHER NEEDS VOICED.
--- NOTE | 2016-12-24 21:03 | NUR ---
AWAKE NON-VERBAL. AT BEDSIDE. HAS 02 AT 2L/NC. AUDIBLE WHEEZING NOTED. STATES HE IS [place], DOES NOT HAVE HEARING AIDS IN. PEG TUBE NOTED. CARTER INTACT/PATENT. STATED STAYING THE NIGHT.
[2016-12-25] VITALS: BP 152/62
--- NOTE | 2016-12-25 04:00 | NUR ---
CHANGED DRESSING ON STUMPS AND HAND. NO OTHER NEEDS VOICED.
[2016-12-25 06:56] LABS: HEMATOCRIT 30.1 % (42.0-54.0); HEMOGLOBIN 9.7 g/dL (13.5-17.5); LYMPHOCYTES 6.7 % (15-50); MCH 30.9 pg (26.0-34.0); MCHC 32.2 g/dL (31.0-37.0); MCV 95.9 fL (80.0-100.0); NEUTROPHILS 83.2 % (40-80); PLATELET COUNT 145 10x3/uL (130-400); RBC 3.14 10x6/uL (4.20-6.10); RDW 17.8 % (11.5-14.5); WBC 3.9 10x3/uL (4.8-10.8)
[2016-12-25 07:11] LABS: INR 2.29 (0.85-1.17); PROTIME 25.3 SECONDS (11.6-15.0)
[2016-12-25 07:13] LABS: ALBUMIN 3.2 g/dL (3.4-5.0); ANION GAP 14.3 mmol/L (8-16); BILIRUBIN - TOTAL 0.7 mg/dL (0.2-1.3); CALCIUM 9.3 mg/dL (8.5-10.1); CARBON DIOXIDE 29.6 mmol/L (21.0-32.0); CREATININE - SERUM 9.5 mg/dL (0.6-1.3); PHOSPHOROUS 6.9 mg/dL (2.5-4.9); POTASSIUM - SERUM 3.9 mmol/L (3.5-5.1); PROTEIN - SERUM 6.5 g/dL (6.4-8.2)
--- NOTE | 2016-12-25 07:53 | NUR ---
PT LAYING TO LEFT SIDE SLEEPING NO S/S DISTRESS NOTED RR EVEN AND UNLABORED WILL CONT TO MONITOR
[2016-12-25 08:00] VITALS: BP 165/75
--- NOTE | 2016-12-25 08:54 | NUR ---
Patient Name: SHERITA LOCKHART Encounter No: [id number] : 1950 Primary Insurance: MEDICARE A & B Anticipated DC Date: Planned Disposition: Intermediate Facility External Planned Provider: [facility], MEDICARE REHAB BED DCP follow-up note: CM SPOKE TO EFE, CLINICAL LIAISON FOR [facility] [phone], WHO ASKED FOR UPDATE FOR REHAB READMIT. CM FAXED UPDATE TO [facility] VIA [facility] AT [phone]. FOR DISCHARGE, FAX DISCHARGE INFORMATION TO [facility] AT [phone]; NURSE REPORT TO BE CALLED TO [facility] AT [phone]. [facility] TO ARRANGE VAN TRANSPORTATION. Medical Field Representative: Ian Brown
--- NOTE | 2016-12-25 10:25 | NUR ---
PT PIV INFILTRATED. NASIM MCKINLEY LPN, DC WITH CATH TIP INTACT. ATTEMPTED TO RESITE X2 STICKS NO SUCCESS. PT ABOUT TO GO TO DIALYSIS WILL GET SOMEONE ELSE TO RESITE WHEN HE RETURNS
--- NOTE | 2016-12-25 14:55 | NUR ---
PT BACK FROM DIALYSIS, PT REQUESTING FOOD. CALLED IR AND ASKED THEM WHAT TIME THEY PLANNED ON TAKING PT. SHE SAID THAT THEY WERENT?? NO ONE HAS CALLED TO NOTIFY STAFF, NO ORDERS HAVE BEEN CHANGED TO DC NPO ORDER OR DC THE PROCEDURE?? INR NURSE SAID THAT DR FINN WILL NOT DO PROCEDURE UNLESS INR IS LESS THAN 2 AND THEY WILL NOT DO IT THIS WEEKEND EITHER. I MENTIONED TO INR NURSE THAT HIS INR WAS LOWER THAN 2 YESTERDAY WHY DIDNT THEY DO IT YESTERDAY. SHE SAID THAT THEY DIDNT HAVE TIME TO DO IT YESTERDAY SO IT GOT PUT OFF. ORDERED PT A TRAY.
[2016-12-25 17:11] LABS: FUNGAL - ASP FLAVUS Negative (Neg:<1:1); FUNGAL - ASP NIGER Negative (Neg:<1:1); FUNGAL - ASPER FUMIGATUS Negative (Neg:<1:1)
--- NOTE | 2016-12-25 18:33 | NUR ---
PT SITTING UP IN BED FINSIHED WITH DINNER, NOW IS AGREEABLE TO HAVE SOMEONE START ANOTHER PIV. NO ONE ON FLOOR CAN STICK PT. SERG FRIAS NURSE IS ALREADY GONE. PT WANTS TO WAIT AND SEE IF JAGRUTI FROM PROCUREMENT COORDINATOR IS HERE BECAUSE "SHE ALWAYS STICKS ME".
[2016-12-25 19:00] VITALS: BP 176/80
--- NOTE | 2016-12-25 19:33 | NUR ---
PT IS RESTING IN BED WITH EYES CLOSED. AWAKENS EASILY TO VERBAL STIMULI. ALERT AND ORIENTED X 3. DENIES ANY DISCOMFORT AT THIS TIME. DRESINGS ARE INTACT TO ANDRE LEG STUMPS, AND LEFT HAND. LEFT CHEST HEMISPLIT NOTED. O2 IS ON @ 2LPM PER NC. NO SOB NOTED. ANDRE ARM FISTULAS ARE NOT WORKING. SR'S ARE UP X 3 IN BED. CALL LIGHT AND BEDSIDE TABLE ARE WITHIN EASY REACH.
--- NOTE | 2016-12-25 22:12 | NUR ---
PT IS RESTING QUIETLY IN BED WITH EYES CLOSED. RESPS ARE EVEN AND UNLABORED. NO ACUTE DISTRESS NOTED.
--- NOTE | 2016-12-25 23:00 | NUR ---
PT WATCHING TV. NO DISTRESS NOTED. WILL CONTINUE TO MONITOR.
[2016-12-26] VITALS: BP 147/66
--- NOTE | 2016-12-26 03:10 | NUR ---
PT IS RESTING QUIETLY IN BED WITH EYES CLOSED.
[2016-12-26 04:00] VITALS: BP 192/83
--- NOTE | 2016-12-26 06:02 | NUR ---
PT RESTING IN BED WITH EYES CLOSED. NO DISTRESS NOTED.
[2016-12-26 06:29] LABS: BASOPHILS 0.3 % (0-2); EOSINOPHILS 4.3 % (0-7); HEMATOCRIT 29.9 % (42.0-54.0); HEMOGLOBIN 9.3 g/dL (13.5-17.5); IMMATURE GRANULOCYTES 0.3 % (0-5); LYMPHOCYTES 10.1 % (15-50); MCH 30.3 pg (26.0-34.0); MCHC 31.1 g/dL (31.0-37.0); MCV 97.4 fL (80.0-100.0); MEAN PLATELET VOLUME 10.1 fL (7.4-10.4); MONOCYTES 6.4 % (2-11); NEUTROPHILS 78.6 % (40-80); PLATELET COUNT 152 10x3/uL (130-400); RBC 3.07 10x6/uL (4.20-6.10); WBC 3.8 10x3/uL (4.8-10.8)
[2016-12-26 06:47] LABS: ALBUMIN 3.2 g/dL (3.4-5.0); ANION GAP 16.4 mmol/L (8-16); BILIRUBIN - TOTAL 0.6 mg/dL (0.2-1.3); CALCIUM 9.5 mg/dL (8.5-10.1); CARBON DIOXIDE 26.8 mmol/L (21.0-32.0); CREATININE - SERUM 7.8 mg/dL (0.6-1.3); POTASSIUM - SERUM 4.2 mmol/L (3.5-5.1)
--- NOTE | 2016-12-26 08:26 | NUR ---
PT AOX4 RESP EVEN AND NONLABORED PT DENIES NEEDS AT THIS TIME NO IV ACCESS AT THIS TIME SRX2 BED AT LOWEST SETTING CALL LIGHT WITHIN REACH WILL CONTINUE TO MONITOR
[2016-12-26 08:49] VITALS: BP 163/78
[2016-12-26 13:18] VITALS: BP 169/75
--- NOTE | 2016-12-26 19:37 | NUR ---
RESUMED CARE OF PT, LYING IN BED RESPIRATIONS EVEN AND UNLABORED ON ROOM AIR. 73 SR ON TELEMETRY. DRESSINGS C/D/I TO BILATERAL BKAS AND LEFT HAND. NO NEEDS AT THIS TIME, WILL CONTINUE TO MONITOR. SEE NURSE ASSESSMENT. CALL LIT IN REACH.
[2016-12-26 20:13] LABS: INR 2.4 (0.85-1.17); PROTIME 26.3 SECONDS (11.6-15.0)
[2016-12-26 20:23] VITALS: BP 170/77
--- NOTE | 2016-12-27 00:48 | NUR ---
LEFT LEG DRESSING REDRESSED, WILL CONTINUE TO MONITOR.
[2016-12-27 01:29] VITALS: BP 178/78
--- NOTE | 2016-12-27 02:20 | NUR ---
UP TO SHOWER AND LINENS CHANGED
[2016-12-27 04:10] LABS: BASOPHILS 0.6 % (0-2); EOSINOPHILS 4.5 % (0-7); HEMATOCRIT 28.4 % (42.0-54.0); HEMOGLOBIN 8.8 g/dL (13.5-17.5); IMMATURE GRANULOCYTES 0.3 % (0-5); LYMPHOCYTES 11.4 % (15-50); MCH 30.1 pg (26.0-34.0); MCV 97.3 fL (80.0-100.0); MEAN PLATELET VOLUME 8.9 fL (7.4-10.4); MONOCYTES 6.3 % (2-11); NEUTROPHILS 76.9 % (40-80); PLATELET COUNT 124 10x3/uL (130-400); RBC 2.92 10x6/uL (4.20-6.10); RDW 16.7 % (11.5-14.5); WBC 3.3 10x3/uL (4.8-10.8)
[2016-12-27 04:31] LABS: INR 2.54 (0.85-1.17); PROTIME 27.5 SECONDS (11.6-15.0)
[2016-12-27 04:40] LABS: ANION GAP 14.1 mmol/L (8-16); BILIRUBIN - TOTAL 0.6 mg/dL (0.2-1.3); CALCIUM 9.7 mg/dL (8.5-10.1); CARBON DIOXIDE 28.7 mmol/L (21.0-32.0); CREATININE - SERUM 9.1 mg/dL (0.6-1.3); PHOSPHOROUS 5.9 mg/dL (2.5-4.9); POTASSIUM - SERUM 3.8 mmol/L (3.5-5.1); PROTEIN - SERUM 6.5 g/dL (6.4-8.2)
--- NOTE | 2016-12-27 04:48 | NUR ---
PT INSISTING THAT WE USE HIS LEFT ARM FOR LAB DRAWS AND BLOOD PRESSURE CHECKS. STATES THAT FISTULA DOESN'T WORK AND THAT'S WHY I HAVE THE HEMOSPLIT. GOES TO THE EXTREME THAT WE CAN EITHER GET WHAT WE NEED FROM HIS LEFT ARM OR NOTHING AT ALL. HE WILL NOT LET US USE HIS RIGHT ARM. DISCUSSED WITH HIM THAT HE NEEDS TO CLARIFY THIS WITH HIS PHYSICIAN, HE AGREES AND ASKS THAT IF HE IS ASLEEP WHEN THEY ROUND TO PLEASE WAKE HIM UP.
[2016-12-27 05:44] VITALS: BP 161/65
--- NOTE | 2016-12-27 06:11 | NUR ---
NO CHANGES FROM PREVIOUS ASSESSMENT, CALL LIGHT IN REACH. WILL CONTINUE TO MONITOR.
[2016-12-27 07:58] VITALS: BP 188/83
--- NOTE | 2016-12-27 07:59 | NUR ---
AM ROUNDING DONE WITH PATIENT ON HEART MONITOR SHOWING AF, HR 72. ON 2L PER NC. PATIENT TELLS PCT THAT SHE CAN USE HIS LEFT ARM FOR BLOOD PRESSURE. LEFT HEMISPLIT SEEN WITH DRY INTACT DRESSING. BILATERAL BKA SEEN WITH DRY DRESSINGS, LEFT HAND IS SUPPOSE TO BE DRESSED BUT REFUSES DRESSING TO IT. WILL CPOC.
--- NOTE | 2016-12-27 09:01 | NUR ---
NORCO GIVEN FOR PAIN TO RIGHT ARM AND SIDE, RATES 9/10. NORCO GIVEN ORDERED.
[2016-12-27 11:36] LABS: INR 2.39 (0.85-1.17); PROTIME 26.2 SECONDS (11.6-15.0)
[2016-12-27 11:54] VITALS: BP 161/77
--- NOTE | 2016-12-27 12:33 | NUR ---
CALL PLACED TO SHAILA PEREZ APN TO CLARIFY FFP ORDERS. SHAILA PEREZ APN WANTS HIM TO HAVE [address] OSMAN SAYS TO HAVE ACTUALLY 4 U FFP IN DIALYSIS ON WEDNESDAY. AWAITING CALL BACK.
--- NOTE | 2016-12-27 12:40 | NUR ---
SPOKE WITH DR OSMAN AND CLAIFIED THE ORDER OF FFP. TO GIVE 2 U TODAY AND 4 TOMORROW WITH DIALYSIS.
--- NOTE | 2016-12-27 13:01 | NUR ---
RATES PAIN TO ENTIRE RIGHT SIDE 01/10. NORCO GIVEN.
--- NOTE | 2016-12-27 14:06 | NUR ---
CALL PLACED TO SHAILA PEREZ APN I FINISHED 2ND FFP PT TO COMPLAIN OF ITCHING. NEW ORDERS RECEIVED. 1325-1ST UNIT OF FFP STARTED TO LEFT BLUE HEMISPLIT. 1340-TRANSFUSION COMPLETE. TOLERATED WELL. 1340-2ND UNIT OF FFP STARTED. 1355-TRANSFUSION COMPLETE. HEPARIN 3000 U GIVEN THROUGH BLUE PORT OF HEMISPLIT ORDERED AND CAPPED.
--- NOTE | 2016-12-27 14:24 | NUR ---
BENADRLY 25 MG PO GIVEN FOR ITCH.
[2016-12-27 16:12] VITALS: BP 162/65
--- NOTE | 2016-12-27 17:29 | NUR ---
ASSSITED PATIENT TO HIS WHEELCHAIR SO HE CAN USE THE RESTROOM. BILATERAL DRESSINGS TO STUMPS DRESSED WITH 4 X 4 AND CAITLIN. TOLERATED WELL. PATIENT IN THE RESTROOM AT PRESENT TIME.
[2016-12-27 19:18] LABS: INR 2.22 (0.85-1.17); PROTIME 24.7 SECONDS (11.6-15.0)
--- NOTE | 2016-12-27 19:47 | NUR ---
RESUMED CARE OF PT, LYING IN BED RESPIRATIONS EVEN AND UNLABORED ON 2LPM VIA NC. 69 FLUTTER ON TELEMETRY. BILATERAL LEG DRESSING C/D/I. LEFT HAND SORE OPEN TO AIR, PER PT REQUEST. CALL LIGHT IN REACH, NO NEEDS NOTED AT THIS TIME. WILL CONTINUE TO MONITOR. SEE NURSE ASSESSMENT.
[2016-12-27 20:00] VITALS: BP 180/52
--- NOTE | 2016-12-27 23:15 | NUR ---
UP IN CHAIR, CALL LIGHT IN REACH. WILL CONTINUE TO MONITOR.
[2016-12-28] VITALS (9 sets, daily range): BP systolic 135–178; BP diastolic 47–70
--- NOTE | 2016-12-28 00:51 | NUR ---
LEFT HAND DRESSING APPLIED. WILL CONTINUE TO MONITOR. NPO AT THIS TIME.
[2016-12-28 01:05] LABS: INR 2.3 (0.85-1.17); PROTIME 25.4 SECONDS (11.6-15.0)
[2016-12-28 06:29] LABS: BASOPHILS 0.3 % (0-2); EOSINOPHILS 4.7 % (0-7); HEMATOCRIT 28.5 % (42.0-54.0); LYMPHOCYTES 11.2 % (15-50); MCH 30.3 pg (26.0-34.0); MCHC 31.6 g/dL (31.0-37.0); MEAN PLATELET VOLUME 10.1 fL (7.4-10.4); NEUTROPHILS 74.8 % (40-80); RBC 2.97 10x6/uL (4.20-6.10); RDW 16.8 % (11.5-14.5); WBC 3.2 10x3/uL (4.8-10.8)
[2016-12-28 06:32] LABS: PLATELET COUNT 157 10x3/uL (130-400)
[2016-12-28 06:45] LABS: INR 2.28 (0.85-1.17); PROTIME 25.2 SECONDS (11.6-15.0)
[2016-12-28 06:54] LABS: ALBUMIN 3.4 g/dL (3.4-5.0); BILIRUBIN - TOTAL 0.7 mg/dL (0.2-1.3); CALCIUM 10.1 mg/dL (8.5-10.1); CARBON DIOXIDE 27.1 mmol/L (21.0-32.0); CREATININE - SERUM 10.4 mg/dL (0.6-1.3); POTASSIUM - SERUM 4.1 mmol/L (3.5-5.1); PROTEIN - SERUM 6.9 g/dL (6.4-8.2)
--- NOTE | 2016-12-28 09:48 | NUR ---
PT LEAVING FOR DIALYSIS NOW. CONSENTS OBTAINED FOR THORENCENTESIS. 3 UNITS OF FFP BROUGHT TO DIALYSIS. PT WILL HAVE A TOTAL OF 6 TODAY. NO CURRENT NEEDS AT THIS TIME. WILL CTM.
--- NOTE | 2016-12-28 11:15 | NUR ---
Patient Name: SHERITA LOCKHART Encounter No: [id number] : 1950 Primary Insurance: MEDICARE A & B Anticipated DC Date: Planned Disposition: Custodial Facility External Planned Provider: [facility] DCP follow-up note: MINH SPOKE TO EFE, CLINICAL LIAISON FOR [facility] [phone], WHO ASKED FOR UPDATE FOR REHAB READMIT. CM FAXED UPDATE TO [facility] VIA [facility] AT [phone]. FOR DISCHARGE, FAX DISCHARGE INFORMATION TO [facility] AT [phone]; NURSE REPORT TO BE CALLED TO [facility] AT [phone]. LENA HEMET TO ARRANGE VAN TRANSPORTATION. Medicare Sales Representative: Ian Brown
[2016-12-28 12:33] LABS: PROTIME 20.7 SECONDS (11.6-15.0)
[2016-12-28 12:34] LABS: INR 1.79 (0.85-1.17)
[2016-12-28 15:11] LABS: INR 1.83 (0.85-1.17); PROTIME 21.2 SECONDS (11.6-15.0)
--- NOTE | 2016-12-28 16:34 | NUR ---
PT LEAVING TO HAVE THORENCENTESIS AT THIS TIME.
--- NOTE | 2016-12-28 17:20 | NUR ---
PT BACK FROM THORENCENTESIS. DRSG IN PLACE TO L.BACK CDI. PT RESTING IN BED AWAKE AND ALERT AND READY TO EAT DINNER. VSS AND BEING RECORDED POLICY FOR POST PROCEDURE. PT DENIES ANY CURRENT NEEDS. CL IN REACH, BED IN LOWEST, SIDE RAILS X2. WILL CPOC.
[2016-12-28 18:46] LABS: PROTEIN - BODY FLUID 2.7 G/DL
[2016-12-28 19:10] LABS: INR 1.75 (0.85-1.17); PROTIME 20.4 SECONDS (11.6-15.0)
--- NOTE | 2016-12-28 19:48 | NUR ---
PT RESTING IN BED. PT ASKED FOR SNACK AND A DRINK. ASKED FOR HIS RIGHT STUMP TO BE WRAPPED, C/O BONE HURTING WHEN IT IS PUSHED AGAINST BED. WANTED PADDING OVER AREA. WRAPPED AND SIGNED AND DATED. PT LEFT STUMP HAS DRESSING OVER STUMP. CLEAN DRY AND INTACT. PT DENIES ANY OTHER NEEDS AT THIS TIME. NO S/S OF DISTRESS. WILL CPOC
[2016-12-28 21:09] LABS: LYMPH - BF 66 %; MACROPHAGES BF 18 %; MESOTHELIALS BF 4 %; NEUT - BF 12 %
[2016-12-29] VITALS: BP 145/74
--- NOTE | 2016-12-29 00:38 | NUR ---
PT C/O PAIN IN RIGHT ARM AND RIGHT FLANK PAIN. ORDERED PRN HYDROCODONE GIVEN. PT ALSO PROVIDED WITH A SANDWINCH AND A COKE. PT DENIES ANY OTHER NEEDS. NO S/S OF DISTRESS. BED LOW AND CALL LIGHT WITHIN REACH. WILL CPOC
[2016-12-29 04:00] VITALS: BP 163/77
[2016-12-29 05:33] LABS: BASOPHILS 0.3 % (0-2); EOSINOPHILS 3.4 % (0-7); HEMATOCRIT 29.2 % (42.0-54.0); HEMOGLOBIN 9.1 g/dL (13.5-17.5); LYMPHOCYTES 10.8 % (15-50); MCH 30.3 pg (26.0-34.0); MCHC 31.2 g/dL (31.0-37.0); MCV 97.3 fL (80.0-100.0); MEAN PLATELET VOLUME 9.3 fL (7.4-10.4); MONOCYTES 8.2 % (2-11); NEUTROPHILS 77.3 % (40-80); PLATELET COUNT 137 10x3/uL (130-400); RDW 16.8 % (11.5-14.5); WBC 3.5 10x3/uL (4.8-10.8)
[2016-12-29 05:54] LABS: INR 2.21 (0.85-1.17); PROTIME 24.5 SECONDS (11.6-15.0)
[2016-12-29 06:17] LABS: ALBUMIN 3.5 g/dL (3.4-5.0); ANION GAP 15.8 mmol/L (8-16); BILIRUBIN - TOTAL 0.7 mg/dL (0.2-1.3); CARBON DIOXIDE 27.3 mmol/L (21.0-32.0); CREATININE - SERUM 8.8 mg/dL (0.6-1.3); POTASSIUM - SERUM 4.1 mmol/L (3.5-5.1); PROTEIN - SERUM 7.3 g/dL (6.4-8.2)
--- NOTE | 2016-12-29 06:33 | NUR ---
PT C/O PAIN. ORDERED PAIN MED GIVEN. PT RECEIVING BREATHING TREATMENT. SITTING UP IN BED HOB 60. PT DENIES ANY NEEDS, NO S/S OF DISTRESS. WILL CPOC
--- NOTE | 2016-12-29 07:30 | NUR ---
INTRODUCED MYSELF TO PT PRIMARY RN FOR TODAYS SHIFT. AM ROUNDS COMPLETED. PT RESTING QUIETLY IN BED AT THIS TIME. CL IN REACH, BED IN LOWEST, SIDE RAILS X2. WILL CPOC.
--- NOTE | 2016-12-29 15:11 | NUR ---
Patient Name: SHERITA LOCKHART Encounter No: [id number] : 1950 Primary Insurance: MEDICARE A & B Anticipated DC Date: 12-29-2016 Planned Disposition: Assisted Facility External Planned Provider: [facility], MEDICARE REHAB BED DCP follow-up note: CM RECEIVED DISCHARGE SPOKE TO EFE, CLINICAL LIAISON FOR [facility] [phone]; [facility] WILL ACCEPT PT TODAY FOR REHAB . CM FAXED DISCHARGE INFORMATION TO [facility] VIA [facility] AT [phone]. CM MET WITH PT IN ROOM WHO IS IN AGREEMENT WITH DISCHARGE BACK TO [facility] TODAY, DOES NOT WANT TO RIDE THE VAN, PT REQUESTED CM CALL HIS BROTHER STACEY TO PICK PT UP AND TRANSPORT BACK TO [facility]. CM CALLED STACEY AT [phone], WHO AGREED TO ANIMAL HEALTH TECHNICIAN PT TODAY AND TRANSPORT BACK TO [facility], HE WILL BE ON THE WAY FROM [place]. CM NOTIFIED PT AND EFE WITH [facility]. EFE ADVISED THAT PT NEEDS TO BRING THE WHEELCHAIR AND TRANSFER SLING WITH HIM. CM NOTIFIED PT WHO REPORTED UNDERSTANDING. CM FAXED DISCHARGE INFORMATION TO [facility] AT [phone]. FIELD SERVICES DIRECTOR NOTIFIED. FOR DISCHARGE, NURSE REPORT TO BE CALLED TO [facility] AT [phone]. PT'S BROTHER TO ANIMAL HEALTH TECHNICIAN THIS EVENING FOR TRANSPORT BACK TO REHAB AT [facility]. Film Reader: Ian Brown
--- NOTE | 2016-12-29 17:49 | NUR ---
PT READY FOR DISCHARGE. DISCHARGE TEACHING PROVIDED AND PAPERS SIGNED. PTS BROTHER IS HERE NOW FOR TRANSPORTATION. NURSING REPORT CALLED TO NASIR MCKINLEY FROM [facility]. PTS BELONGINGS COLLECTED AND PT LEAVING AT THIS TIME. DENIES ANY FURTHER NEEDS.
[2016-12-30 16:14] LABS: FUNGUS STAIN Final report (())
[2016-12-30 20:08] LABS: ACID FAST SMEAR Negative (()); AFB SPECIMEN PROCESSING Concentration (())
== END 2016-12-29 18:16 | disposition home or self-care (01) | DRG 919 ==
LOC: D.M2 19:39 → D.SDCHOLD 12-18 12:54 → D.M2 12-18 12:59
PROVIDERS: General Practice; Internal Medicine; Internal Medicine Nephrology; Internal Medicine Pulmonary Disease; Radiology Diagnostic Radiology; ADMIT Internal Medicine Nephrology
PROC: 5A1D60Z (ICD-10-PCS; 2016-12-18)
PROC: 0W9B3ZZ Drainage of Left Pleural Cavity, Percutaneous Approach (ICD-10-PCS; principal; 2016-12-28 16:40)
DX: T81.89XA Other complications of procedures, not elsewhere classified, initial encounter (principal); N18.6 End stage renal disease; J18.9 Pneumonia, unspecified organism; I12.0 Hypertensive chronic kidney disease with stage 5 chronic kidney disease or end stage renal disease; D68.2 Hereditary deficiency of other clotting factors; Y83.5 Amputation of limb(s) as the cause of abnormal reaction of the patient, or of later complication, without mention of misadventure at the time of the procedure; E11.22 Type 2 diabetes mellitus with diabetic chronic kidney disease; R22.2 Localized swelling, mass and lump, trunk; Z89.511 Acquired absence of right leg below knee; I25.10 Atherosclerotic heart disease of native coronary artery without angina pectoris; G47.30 Sleep apnea, unspecified; D63.1 Anemia in chronic kidney disease; E83.39 Other disorders of phosphorus metabolism

== ENCOUNTER 2017-02-22 14:42 | Inpatient (IN) | payer MEDICARE ==
[2017-02-22 16:04] VITALS: BP 141/42; BMI 33.4
--- NOTE | 2017-02-22 16:21 | NUR ---
ARRIVED VIA AMBULANCE. SEE ASSESSMENT FOR FURTHER EVAL. PT HAS ANDRE FISTULAS. PT STATES THEY ARE NOT USED. HE ALSO HAS A L CHEST HEMOSPLIT. PT IS A ANDRE AMPUTEE BKA. HE ALSO HAS A BANDAGE ON L HAND WITH [address] SMALLS OFFICE NOTIFIED. DR. OSMAN NOTIFIED.
--- NOTE | 2017-02-22 18:30 | NUR ---
CATHFLO ACTIVASE GIVEN BY Marlo HADDAD LPN DIALYSIS NURSE THRU HEMOSPLIT. CATH FLOWED WELL. HEMOSPLIT DRESSING CHANGED BY RADHA RODRIGUEZ.
[2017-02-22 19:00] VITALS: BP 146/50
[2017-02-23] VITALS: BP 137/31
[2017-02-23 04:00] VITALS: BP 144/72
--- NOTE | 2017-02-23 05:00 | NUR ---
PT RESTING IN BED WITH NO DISTRESS. CPOC.
[2017-02-23 06:05] LABS: INR 2.55 (0.85-1.17); PROTIME 27.6 SECONDS (11.6-15.0)
[2017-02-23 06:37] LABS: ANION GAP 22.4 mmol/L (8-16); CALCIUM 7.9 mg/dL (8.5-10.1); CARBON DIOXIDE 20.4 mmol/L (21.0-32.0); CREATININE - SERUM 14.2 mg/dL (0.6-1.3); PHOSPHOROUS 9.3 mg/dL (2.5-4.9); POTASSIUM - SERUM 4.8 mmol/L (3.5-5.1)
--- NOTE | 2017-02-23 07:15 | NUR ---
RECIEVED REPORT ON PATIENT, PATIENT IS SLEEPING AT THIS TIME. NAD NOTED. CHEST RISES AND FALLS EQUALLY. PATIENT BED IS LOW AND LOCKED AT THIS TIME, CALL LIGHT IN REACH. CPOC.
[2017-02-23 07:23] LABS: BASOPHILS 0.2 % (0-2); EOSINOPHILS 5.4 % (0-7); HEMATOCRIT 26.5 % (42.0-54.0); HEMOGLOBIN 8.6 g/dL (13.5-17.5); IMMATURE GRANULOCYTES 0.2 % (0-5); LYMPHOCYTES 14.1 % (15-50); MCH 29.7 pg (26.0-34.0); MCHC 32.5 g/dL (31.0-37.0); MCV 91.4 fL (80.0-100.0); MEAN PLATELET VOLUME 9.9 fL (7.4-10.4); MONOCYTES 7.8 % (2-11); NEUTROPHILS 72.3 % (40-80); RDW 16.6 % (11.5-14.5); WBC 4.1 10x3/uL (4.8-10.8)
[2017-02-23 07:29] LABS: PLATELET COUNT 104 10x3/uL (130-400)
[2017-02-23 08:00] VITALS: BP 175/79
--- NOTE | 2017-02-23 09:20 | NUR ---
PATIENT REFUSED MORNING MEDICATIONS AT THIS TIME. CPOC
[2017-02-23 09:39] VITALS: BMI 33.2
--- NOTE | 2017-02-23 10:35 | NUR ---
PATIENT GONE TO DIAYLSIS. CPOC
--- NOTE | 2017-02-23 12:50 | NUR ---
PATIENT STILL IN DIAYLSIS AT THIS TIME. CPOC
--- NOTE | 2017-02-23 13:15 | NUR ---
PATIENT BACK FROM DIAYLSIS, REQUESTING LUNCH. WILL GET PATIENT TRAY. CPOC
--- NOTE | 2017-02-23 15:27 | NUR ---
Patient Name: SHERITA LOCKHART Admission Status: ER Accout number: [id number] Admission Date: 02-22-2017 : 1950 Admission Diagnosis: Attending: Andrey Colmenares Current LOS: 1 Anticipated DC Date: 02-24-2017 Planned Disposition: Half-Way Facility Primary Insurance: MEDICARE A & B PLANNED EXTERNAL PROVIDER: [facility], MEDICARE SKILLED BED Discharge Planning Comments: * Is the patient Alert and Oriented? Yes 0 * How many steps to enter\exit or inside your home? NONE 0 * PCP [facility] 0 * Pharmacy [facility] 0 * Preadmission Environment Half-Way Facility 0 * Facility Name [facility] 0 * ADLs Partial Dependent 0 * Partial ADLs (Assistance needed) Ambulation Bathing Medication Management 0 * Equipment Other 0 * Other Equipment ALL MEDICAL EQUIPMENT PROVIDED BY ALF FACILITY 0 * List name and contact numbers for known caregivers / representatives who currently or will assist patient after discharge: TAWANA LOCKHART, DTR, STACEY OR PAXTON BROWN, FRIEND, 0 * Community resources currently utilized Other 0 * Please name any agencies selected above. OUTPATIENT DIALYSIS, [facility], T/T/S, 1030, [place] / [facility] TRANSPORT 0 * Additional services required to return to the preadmission environment? No 0 * Can the patient safely return to the preadmission environment? Yes 0 * Has this patient been hospitalized within the prior 30 days at any hospital? No 0 CM RECEIVED ORDER FOR TRANSFER OF PT TO [facility]. MINH SPOKE TO DR. COLMENARES WHO INFORMED CM THAT THE NEPHROLOGISTS WOULD NOT ACCEPT, ONLY DR. LEE HERE WOULD TAKE CARE OF IT AND PT REFUSED SERVICES OF DR. LEE; DIRECTED MINH TO CALL SURGEON WHO INSTALLED PT'S HEROGRAFT TO FIND OUT IF THE DOCTOR WANTED TO TRANSFER THE PT OR WORK OUTPATIENT. CM CALLED AND SPOKE TO HVAC ENGINEER DARIO, OBTAINED ADMINISTRATIVE APPROVAL FOR TRANSFER FROM [facility]. CM SPOKE TO PT IN ROOM REGARDING POSSIBLE TRANSFER AND DISCHARGE PLAN. PT REPORTS HE WOULD LIKE TRANFER TO THE [facility] IF DR. CASTANEDA WILL TAKE HIM TO FIX THE GRAFT; PT PLANS TO RETURN FOR SKILLED CARE AT [facility] AT DISCHARGE. MINH CALLED DR. CASTANEDA'S OFFICE, , SPOKE TO NURSE FRANCO WHO WILL CONSULT WITH DR. CASTANEDA AND CALL CM BACK. CM RECEIVED RETURN CALL FROM FRANCO WHO REPORTS THE DOCTOR WILL SEE PT AN OUTPATIENT AND THE CLINIC WILL CONTACT [facility] NEXT WEEK TO SCHEDULE THE APPOINTMENT. CM NOTIFIED DR. COLMENARES WHO ADVISED CM OF DISCHARGE PLAN FOR AM AFTER DIALYSIS. CM NOTIFIED PT WHO IS IN AGREEMENT WITH TREATMENT AND DISCHARGE PLAN. IMPORTANT MESSAGE FROM MEDICARE PROVIDED AND EXPLAINED. CM CALLED [facility], SPOKE TO DELICIA, AT [phone], NOTIFIED OF PLANNED DISCHARGE FOR TOMORROW, [facility] SCHEDULED FOR 1PM PATTERN CHANGER AND REPAIRER. CM FAXED CLINICAL UPDATE TO [facility] VIA [facility] CLINICAL LIAISON, AT [phone]. FOR DISCHARGE, FAX DISCHARGE INFORMATION TO [facility] AT [phone]; NURSE REPORT TO BE CALLED TO [facility] AT [phone]. [facility] VAN TO PATTERN CHANGER AND REPAIRER PT 10-25-17 AT 1PM. Judicial Law Clerk: Ian Brown
--- NOTE | 2017-02-23 15:34 | NUR ---
PATIENT GETTING BATH AT THIS TIME BY NURSING STUDENTS. DENIES ANY NEEDS. CPOC
[2017-02-23 16:00] VITALS: BP 141/72
--- NOTE | 2017-02-23 17:20 | NUR ---
PATIENT GIVEN NORCO FOR PAIN 01/10. WILL CONT TO MONIR. PATIENT EATING DINNER. CPOC
--- NOTE | 2017-02-23 18:28 | NUR ---
PATIENT VISITING WITH . DENIES ANY NEEDS. CPOC
[2017-02-23 21:28] VITALS: BP 175/80
[2017-02-24 02:07] VITALS: BP 132/62
--- NOTE | 2017-02-24 05:21 | NUR ---
PT AWAKE, ALERT, TALKING TO JAGRUTI FROM LAB IN TO DRAW HIS BLOOD. PT DENIES ANY NEEDS. CONTINUE TO MONITOR CLOSELY. BED LOW, CALL LIGHT IN REACH, SIDE RAILS X 2, HOB 20 DEGREES.
[2017-02-24 05:25] VITALS: BP 190/83
[2017-02-24 06:03] LABS: BASOPHILS 0.2 % (0-2); EOSINOPHILS 3.3 % (0-7); HEMATOCRIT 29.9 % (42.0-54.0); HEMOGLOBIN 9.7 g/dL (13.5-17.5); IMMATURE GRANULOCYTES 0.2 % (0-5); LYMPHOCYTES 9.5 % (15-50); MCH 29.8 pg (26.0-34.0); MCHC 32.4 g/dL (31.0-37.0); MEAN PLATELET VOLUME 10.6 fL (7.4-10.4); MONOCYTES 10.5 % (2-11); NEUTROPHILS 76.3 % (40-80); PLATELET COUNT 115 10x3/uL (130-400); RBC 3.25 10x6/uL (4.20-6.10); RDW 16.2 % (11.5-14.5); WBC 4.3 10x3/uL (4.8-10.8)
[2017-02-24 06:49] LABS: ANION GAP 19.2 mmol/L (8-16); CALCIUM 8.9 mg/dL (8.5-10.1); CARBON DIOXIDE 24.3 mmol/L (21.0-32.0); CREATININE - SERUM 11.7 mg/dL (0.6-1.3); PHOSPHOROUS 7.7 mg/dL (2.5-4.9); POTASSIUM - SERUM 4.5 mmol/L (3.5-5.1)
--- NOTE | 2017-02-24 07:11 | NUR ---
RECIEVED REPORT ON PATIENT, PATIENT IS SLEEPING AT THIS TIME, NAD NOTED. CHEST RISES AND FALLS EQUALLY. PATIENT HAS BILAT BKA, HE ALSO HAS FINGER AMPUTATIONS ON BOTH HANDS. LEFT CHEST HEMOSPLIT CATHETER NOTED. PATIENT IS TO DIAYLIZE THIS AM. BED IS LOW AND LOCKED AT THIS TIME. CALL LIGHT IN REACH. CPOC
[2017-02-24 08:00] VITALS: BP 154/58
--- NOTE | 2017-02-24 08:30 | NUR ---
MORNING MEDICATION GIVEN NO ISSUES. CPOC
--- NOTE | 2017-02-24 09:07 | NUR ---
PATIENT GONE TO DIAYLSIS. CPOC
--- NOTE | 2017-02-24 11:45 | NUR ---
PATIENT BACK TO ROOM FROM DIAYLSIS. DENIES ANY NEEDS. CPOC
[2017-02-24 12:00] VITALS: BP 110/59
--- NOTE | 2017-02-24 12:49 | NUR ---
PATIENT SIGNED DC INSTRUCTIONS. DENIES ANY QUESTIONS. REPORT GIVEN TO ALBERTO AT [facility], DENIES ANY QUESTIONS. WAITING FOR TRANSPORT. CPOC
--- NOTE | 2017-02-24 13:15 | NUR ---
PATIENT GONE FOR DC
--- NOTE | 2017-02-24 14:37 | NUR ---
Patient Name: SHERITA LOCKHART Encounter No: [id number] : 1950 Primary Insurance: MEDICARE A & B Anticipated DC Date: 02-24-2017 Planned Disposition: Group Home Facility External Planned Provider: [facility], MEDICARE SKILLED BED LATE ENTRY: DCP follow-up note: CM RECEIVED DISCHARGE ORDER, SPOKE TO PT IN ROOM WHO IS IN AGREEMENT WITH DISCHARGE TODAY. CM FAXED DISCHARGE INFORMATION TO [facility] AT [phone]; NURSE REPORT TO BE CALLED TO [facility] AT [phone]. [facility]AN TO RESTAURANT ASSOCIATE PT 02-24-17 AT 1PM. Concrete Tile Machine Operator: Ian Brown
--- NOTE | 2017-02-25 12:12 | DS ---
PATIENT:KEVIN LOCKHART :[birth year] MEDICAL RECORD: [id number] DISCHARGE SUMMARY ADMISSION DATE: 02/22/17 DISCHARGE DATE: 02/24/17 DATE OF DISCHARGE: 02/24/2017 I spent 30 minutes discharging Kevin, mostly reviewing his medications, HISTORY OF PRESENT ILLNESS: Kevin is a 66-year-old gentleman, who had a HeRO graft placed in [place] and it never worked and was clotted. He went to dialysis last Wednesday and was only able to run 10 minutes and I am not sure if he was able to get a hold of his surgeon, but apparently, was not and I had to admit him on Wednesday for Activase for his dialysis catheter. We thought we are going to have to change it. He did not want Dr. Alvarado to look at his HeRO graft or to help with his HeRO graft and he is the only surgeon available in [place] for this new phlebotomist medical lab assistant. PHYSICAL EXAMINATION: GENERAL: On discharge, he is alert and oriented times 3. CARDIOVASCULAR: Regular rate and rhythm. S1, S2. LUNGS: Clear to auscultation. ABDOMEN: Nontender. No change in his peripheral vascular disease, wound is stable. He will continue amiodarone 200 mg daily, amlodipine 5 mg daily, cinacalcet 60 mg a day, Tums 1000 with meals t.i.d., hydrocodone 10/325 p.r.n. He takes ProMod liquid, which is protein and Imdur 30 mg b.i.d. He will follow up at his dialysis on Wednesday. Renal diet with fluid restriction. Activities per the snf with assistance and to follow up with his surgeon in [place] in regards to his catheter. We did discuss that he has had a GI bleed in the past and mostly this best require anticoagulation, which we will need to discuss. Stable on discharge. Spent greater than 30 minutes. I did see him on dialysis as he did have a stable dialysis treatment. TRANSINT:[id number] Voice Confirmation ID: [id number] DOCUMENT ID: [id number] ELIZABET OSMAN MD at 1212 CC: [id number] DICTATION DATE: 02/24/17 1150 RACE ENGINE BUILDER: 02/24/172203 DIS IN 02/24/17 [facility] [address] [place] [address]
== END 2017-02-24 13:38 | DRG 314 ==
LOC: D.M2 14:42
PROVIDERS: ADMIT Internal Medicine Nephrology
PROC: 3E03317 Introduction of Other Thrombolytic into Peripheral Vein, Percutaneous Approach (ICD-10-PCS; 2017-02-22)
PROC: 5A1D70Z Performance of Urinary Filtration, Intermittent, Less than 6 Hours Per Day (ICD-10-PCS; principal; 2017-02-23)
DX: T82.868A Thrombosis due to vascular prosthetic devices, implants and grafts, initial encounter (principal); N18.6 End stage renal disease; D68.2 Hereditary deficiency of other clotting factors; Y83.8 Other surgical procedures as the cause of abnormal reaction of the patient, or of later complication, without mention of misadventure at the time of the procedure; E11.22 Type 2 diabetes mellitus with diabetic chronic kidney disease; Z99.2 Dependence on renal dialysis; D63.1 Anemia in chronic kidney disease; I48.91 Unspecified atrial fibrillation; I73.9 Peripheral vascular disease, unspecified; Z89.511 Acquired absence of right leg below knee; Z87.891 Personal history of nicotine dependence

== ENCOUNTER 2017-04-15 08:00 | Outpatient (CLI) | payer MEDICARE ==
[~2017-04-15] VITALS: Ht 190.5 cm; Wt 96.6 kg
[2017-04-15] MEDS ORDERED: RENVELA2.4 GM PO (09:27)
[2017-04-15] MEDS ORDERED: OMEPRAZOLE20 M1 PO (09:28)
[2017-04-15] MEDS ORDERED: ZOFRAN4 MG PO (09:29)
[2017-04-15] MEDS ORDERED: NITRO-DUR0.4 MG TRANSDERM (09:32)
[2017-04-15] MEDS ORDERED: BENADRYL50 MG PO (09:32)
[2017-04-15] MEDS ORDERED: PLAVIX75 MG PO (09:33)
[2017-04-15] MEDS ORDERED: VITAMIN D250000 UNIT PO (09:34)
[2017-04-15] MEDS ORDERED: PROTONIX40 MG PO (09:34)
[2017-04-15] MEDS ORDERED: PACERONE200 MG PO (09:34)
[2017-04-15] MEDS ORDERED: ASPIRIN325 MG PO (09:35)
[2017-04-15] MEDS ORDERED: PHENERGAN25 M1 PO (09:36)
[2017-04-15 09:42] VITALS: BP 133/91; BMI 26.6
[2017-04-15 10:12] LABS: ANION GAP 19.7 mmol/L (8-16); CALCIUM 8.7 mg/dL (8.5-10.1); CARBON DIOXIDE 25.2 mmol/L (21.0-32.0); CREATININE - SERUM 10.2 mg/dL (0.6-1.3); POTASSIUM - SERUM 3.9 mmol/L (3.5-5.1)
[2017-04-15 10:17] LABS: APTT 40.2 SECONDS (22.8-39.4); INR 2.49 (0.85-1.17); PROTIME 26.3 SECONDS (11.6-15.0)
[2017-04-15 10:36] LABS: BASOPHILS 0.4 % (0-2); HEMATOCRIT 29.9 % (42.0-54.0); HEMOGLOBIN 9.5 g/dL (13.5-17.5); IMMATURE GRANULOCYTES 0.4 % (0-5); LYMPHOCYTES 17.4 % (15-50); MCH 30.9 pg (26.0-34.0); MCHC 31.8 g/dL (31.0-37.0); MCV 97.4 fL (80.0-100.0); MEAN PLATELET VOLUME 9.5 fL (7.4-10.4); NEUTROPHILS 67.8 % (40-80); RBC 3.07 10x6/uL (4.20-6.10); WBC 5.2 10x3/uL (4.8-10.8)
[2017-04-15 10:39] LABS: PLATELET COUNT 219 10x3/uL (130-400); RDW 18.3 % (11.5-14.5)
[2017-04-15 11:32] VITALS: Ht 190.5 cm; Wt 96.6 kg
--- NOTE | 2017-04-15 12:24 | NUR ---
SURGERY CANCEL DUE TO ABNORMAL EKG, [place] CALL WITH REPORT SPOKE WITH CAROLYN RASMUSSEN
== END 2017-04-15 23:59 | disposition home or self-care (01) ==
LOC: D.OPS 08:00 → D.PAN 10:20 → D.OPS 10:45 → D.PAN 11:10 → D.OPS 12:15 → D.PAN 12:45 → D.OPS 12:45 → EDSTATUS 12:45 → D.OPS 23:59
PROVIDERS: Anesthesiology
DX: I99.8 Other disorder of circulatory system (principal); R07.9 Chest pain, unspecified; Z01.812 Encounter for preprocedural laboratory examination; Z01.810 Encounter for preprocedural cardiovascular examination; Z53.9 Procedure and treatment not carried out, unspecified reason

== ENCOUNTER 2017-06-17 09:21 | Day surgery (SDC) | payer MEDICARE ==
--- NOTE | ~2017-06-17 | OP ---
PATIENT NAME: SHERITA LOCKHART MEDICAL RECORD: [id number] :[birth year] LOCATION:[facility] ADMISSION DATE: SURGEON: CHRIS STERLING MD DATE OF OPERATION: 06/17/2017 PREOPERATIVE DIAGNOSIS: Dry gangrene, left index finger. POSTOPERATIVE DIAGNOSIS: Dry gangrene, left index finger. PROCEDURE: Left index finger amputation at the DIP joint. SURGEON: Chris Sterling MD ANESTHESIA: General. INTRAOPERATIVE COMPLICATIONS: None. SUMMARY OF PATHOLOGIC FINDINGS: No infectious process was found as this was truly dry gangrene. OPERATIVE SUMMARY IN DETAIL: After obtaining the appropriate preoperative orthopedic surgery consent as well as anesthetic consultation, evaluation, and clearance, the patient was brought to the operating room and placed on the operating table in supine position. After adequate general laryngeal mask airway was administered, an Esmarch was used about the wrist for tourniquet as the patient had a fistula. A fishmouth-type incision was made over just proximal to the dry gangrene and taken down to the bone, where it was then cut off with a bone biter. I copiously irrigated and closed with 4-0 Prolene in routine interrupted fashion. Sterile dressings were applied. The patient was awakened and taken to the recovery room in stable condition. All final needle and sponge counts were correct. TRANSINT:[id number] Voice Confirmation ID: [id number] DOCUMENT ID: [id number] CHRIS STERLING MD at 0941 CC: [id number] DICTATION DATE: 06/27/17 1526 DB2 DBA: 06/27/17 1613 [facility] 06/17/17 [place] [id number]
[~2017-06-17 09:21] MED LIST changes: +ASPIRIN325 MG PO; +BENADRYL50 MG PO; +NITRO-DUR0.4 MG TRANSDERM; +OMEPRAZOLE20 M1 PO; +RENVELA2.4 GM PO; +VITAMIN D250000 UNIT PO; +ZOFRAN4 MG PO
[2017-06-17 10:58] LABS: HEMATOCRIT 29.4 % (42.0-54.0); HEMOGLOBIN 9.3 g/dL (13.5-17.5); MCH 30.7 pg (26.0-34.0); MCHC 31.6 g/dL (31.0-37.0); RBC 3.03 10x6/uL (4.20-6.10); RDW 16.1 % (11.5-14.5); WBC 4.6 10x3/uL (4.8-10.8)
[2017-06-17 11:04] LABS: ANION GAP 15.5 mmol/L (8-16); CALCIUM 9.1 mg/dL (8.5-10.1); CARBON DIOXIDE 25.9 mmol/L (21.0-32.0); CREATININE - SERUM 8.1 mg/dL (0.6-1.3); POTASSIUM - SERUM 3.4 mmol/L (3.5-5.1)
[2017-06-17 12:24] LABS: APTT 46.1 SECONDS (22.8-39.4); INR 2.4 (0.85-1.17); PROTIME 25.5 SECONDS (11.6-15.0)
[2017-06-17 12:38] VITALS: BMI 24.8
[2017-06-17] MEDS ORDERED: HYDROCODONE-APA1 TAB PO (14:46)
== END 2017-06-17 16:30 | disposition home or self-care (01) ==
LOC: D.OPS 09:21 → D.PAN 13:00 → D.OPS 13:30 → D.PAN 14:15 → D.OPS 16:30
PROVIDERS: Anesthesiology; Orthopaedic Surgery
DX: I96 Gangrene, not elsewhere classified (principal); Z01.812 Encounter for preprocedural laboratory examination

== ENCOUNTER 2017-10-14 10:24 | Day surgery (SDC) | payer MEDICARE ==
--- NOTE | ~2017-10-14 | OP ---
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 POSTOPERATIVE DIAGNOSIS: Dry gangrenous necrosis of the right middle distal phalanx. PROCEDURE: Amputation of the entire distal phalanx of the right finger. SURGEON: Chris Sterling MD ANESTHESIA: General. INTRAOPERATIVE COMPLICATIONS: None. SUMMARY OF PATHOLOGIC FINDINGS: Consistent with preoperative diagnosis. This had complete dry gangrene and it demarcated well. This is not new to Mr. Lockhart. This has happened on several of his fingers. OPERATIVE SUMMARY IN DETAIL: After obtaining the appropriate preoperative orthopaedic surgery consent as well as anesthetic consultation, evaluation, and clearance, the patient was brought to the operating room and placed on the operating table in the supine position. After general laryngeal mask airway was administered, the patient's right upper extremity was prepped and draped in routine sterile fashion. Fishmouth incision was taken down. The distal phalanx was disarticulated and the tip of the middle phalanx was taken off with a bone cutter. Wound was then copiously irrigated. No untoward or infectious-appearing elements were noted. Gentle closure with 4-0 Prolene was then followed by sterile dressings. The patient was then awakened and taken to the recovery room in stable condition. All final needle and sponge counts were correct. TRANSINT:[id number] Voice Confirmation ID: [id number] DOCUMENT ID: [id number] CHRIS STERLING MD at 1340 CC: [id number] DICTATION DATE: 11/01/17 1534 NBA PLAYER: 11/01/17 1603 [facility] 10/14/17 [facility] [address] [place] [id number]
[~2017-10-14 10:24] MED LIST changes: +ASPIRIN EC81 M1 PO; -ASPIRIN325 MG PO; +RESTORIL15 MG PO
[2017-10-14 11:04] LABS: BASOPHILS 0.4 % (0-2); EOSINOPHILS 3.4 % (0-7); HEMATOCRIT 34.3 % (42.0-54.0); HEMOGLOBIN 10.8 g/dL (13.5-17.5); IMMATURE GRANULOCYTES 0.2 % (0-5); LYMPHOCYTES 12.4 % (15-50); MCHC 31.5 g/dL (31.0-37.0); MEAN PLATELET VOLUME 9.3 fL (7.4-10.4); MONOCYTES 6.3 % (2-11); NEUTROPHILS 77.3 % (40-80); PLATELET COUNT 138 10x3/uL (130-400); RBC 3.73 10x6/uL (4.20-6.10); RDW 16.5 % (11.5-14.5); WBC 4.8 10x3/uL (4.8-10.8)
[2017-10-14 11:08] LABS: APTT 40.3 SECONDS (22.8-39.4); INR 2.69 (0.85-1.17); PROTIME 27.9 SECONDS (11.6-15.0)
[2017-10-14 11:23] LABS: CALCIUM 7.3 mg/dL (8.5-10.1); CARBON DIOXIDE 25.7 mmol/L (21.0-32.0); CREATININE - SERUM 10.2 mg/dL (0.6-1.3); POTASSIUM - SERUM 4.7 mmol/L (3.5-5.1)
[2017-10-14 13:22] VITALS: BP 114/48; BMI 21.0
[2017-10-14] MEDS ORDERED: HYDROCODONE-APA1 TAB PO (14:22)
== END 2017-10-14 16:20 | disposition home or self-care (01) ==
LOC: D.OPS 10:24 → D.PAN 15:30 → D.OPS 16:20
PROVIDERS: Anesthesiology
DX: I96 Gangrene, not elsewhere classified (principal); M79.644 Pain in right finger(s); M79.641 Pain in right hand; I25.10 Atherosclerotic heart disease of native coronary artery without angina pectoris; Z95.1 Presence of aortocoronary bypass graft; Z95.5 Presence of coronary angioplasty implant and graft; E11.22 Type 2 diabetes mellitus with diabetic chronic kidney disease; N18.6 End stage renal disease; Z99.2 Dependence on renal dialysis; Z01.812 Encounter for preprocedural laboratory examination

== ENCOUNTER 2017-11-01 18:56 | Inpatient (IN) | payer MEDICARE ==
[~2017-11-01] VITALS: Ht 190.5 cm; Wt 73.8 kg
[2017-11-01 19:40] VITALS: BP 123/74
[2017-11-01 20:00] VITALS: BP 121/64
[2017-11-01 20:30] LABS: BASOPHILS 0.4 % (0-2); EOSINOPHILS 1.7 % (0-7); HEMATOCRIT 34.6 % (42.0-54.0); HEMOGLOBIN 10.6 g/dL (13.5-17.5); IMMATURE GRANULOCYTES 0.2 % (0-5); LYMPHOCYTES 9.6 % (15-50); MCH 29.1 pg (26.0-34.0); MCHC 30.6 g/dL (31.0-37.0); MCV 95.1 fL (80.0-100.0); MEAN PLATELET VOLUME 9.4 fL (7.4-10.4); MONOCYTES 5.5 % (2-11); NEUTROPHILS 82.6 % (40-80); PLATELET COUNT 124 10x3/uL (130-400); RBC 3.64 10x6/uL (4.20-6.10); RDW 17.3 % (11.5-14.5); WBC 4.8 10x3/uL (4.8-10.8)
[2017-11-01 20:59] LABS: ALBUMIN 3.3 g/dL (3.4-5.0); ALKALINE PHOSPHATASE 147 U/L (46-116); ALT (SGPT) 6 U/L (10-68); CALC OSMOLALITY 308 mosm/kg (275-300); CALCIUM 7.7 mg/dL (8.5-10.1); CARBON DIOXIDE 26.3 mmol/L (21.0-32.0); CHLORIDE - SERUM 100 mmol/L (98-107); PROTEIN - SERUM 7.2 g/dL (6.4-8.2); SODIUM 143 mmol/L (136-145); UREA NITROGEN 66 mg/dL (7-18); eGFR NON AFRICAN AMERICAN 4 mL/min (90-120)
[2017-11-01 21:00] VITALS: BP 128/70
[2017-11-01 21:00] LABS: GLUCOSE 186 mg/dL (74-106)
[2017-11-01 21:12] LABS: CKMB 3.9 U/L (0.0-3.6); CREATINE KINASE 130 UL (21-232); TROPONIN-I < 0.017 ng/mL (0.000-0.060)
[2017-11-01 21:42] LABS: PRO BNP 124644 pg/mL (0-125)
[2017-11-01 22:00] VITALS: BP 127/68
[2017-11-01 23:00] VITALS: BP 142/74
[2017-11-02] VITALS (12 sets, daily range): BP systolic 132–183; BP diastolic 64–97; BMI 20.9
[2017-11-03 01:35] VITALS: BP 139/75
[2017-11-03 02:54] VITALS: BP 138/69; Ht 190.5 cm; Wt 73.8 kg
[2017-11-03 05:29] VITALS: BP 144/71
[2017-11-03 06:21] LABS: BASOPHILS 0.5 % (0-2); EOSINOPHILS 2.3 % (0-7); HEMATOCRIT 31.3 % (42.0-54.0); HEMOGLOBIN 9.8 g/dL (13.5-17.5); IMMATURE GRANULOCYTES 0.2 % (0-5); LYMPHOCYTES 11.5 % (15-50); MCH 29.2 pg (26.0-34.0); MCHC 31.3 g/dL (31.0-37.0); MCV 93.2 fL (80.0-100.0); MONOCYTES 9.6 % (2-11); NEUTROPHILS 75.9 % (40-80); PLATELET COUNT 123 10x3/uL (130-400); RBC 3.36 10x6/uL (4.20-6.10); RDW 17.1 % (11.5-14.5); WBC 4.3 10x3/uL (4.8-10.8)
[2017-11-03 06:39] LABS: ANION GAP 17.4 mmol/L (8-16); CALCIUM 7.6 mg/dL (8.5-10.1); CARBON DIOXIDE 27.1 mmol/L (21.0-32.0); CREATININE - SERUM 11.2 mg/dL (0.6-1.3); PHOSPHOROUS 6.9 mg/dL (2.5-4.9); POTASSIUM - SERUM 4.5 mmol/L (3.5-5.1)
[2017-11-03 08:46] VITALS: BP 150/78
[2017-11-03 21:01] VITALS: BP 136/70
[2017-11-04 01:29] VITALS: BP 130/67
[2017-11-04 05:09] VITALS: BP 148/73
[2017-11-04 08:48] VITALS: BP 122/64
[2017-11-04 08:48] LABS: BASOPHILS 0.5 % (0-2); EOSINOPHILS 3.7 % (0-7); HEMATOCRIT 32.8 % (42.0-54.0); IMMATURE GRANULOCYTES 0.3 % (0-5); LYMPHOCYTES 14.7 % (15-50); MCH 28.7 pg (26.0-34.0); MCHC 30.5 g/dL (31.0-37.0); MCV 94.3 fL (80.0-100.0); MEAN PLATELET VOLUME 9.8 fL (7.4-10.4); MONOCYTES 6.4 % (2-11); NEUTROPHILS 74.4 % (40-80); PLATELET COUNT 136 10x3/uL (130-400); RBC 3.48 10x6/uL (4.20-6.10); RDW 16.9 % (11.5-14.5); WBC 3.8 10x3/uL (4.8-10.8)
[2017-11-04 09:14] LABS: ANION GAP 17.3 mmol/L (8-16); CARBON DIOXIDE 26.6 mmol/L (21.0-32.0); CREATININE - SERUM 12.8 mg/dL (0.6-1.3); PHOSPHOROUS 8.6 mg/dL (2.5-4.9); POTASSIUM - SERUM 4.9 mmol/L (3.5-5.1)
[2017-11-04 10:20] LABS: BASOPHILS 0.3 % (0-2); EOSINOPHILS 3.4 % (0-7); HEMOGLOBIN 9.3 g/dL (13.5-17.5); IMMATURE GRANULOCYTES 0.3 % (0-5); LYMPHOCYTES 11.5 % (15-50); MCV 93.5 fL (80.0-100.0); MEAN PLATELET VOLUME 9.1 fL (7.4-10.4); MONOCYTES 4.8 % (2-11); NEUTROPHILS 79.7 % (40-80); PLATELET COUNT 112 10x3/uL (130-400); RBC 3.21 10x6/uL (4.20-6.10); RDW 16.8 % (11.5-14.5); WBC 3.6 10x3/uL (4.8-10.8)
[2017-11-04 10:31] LABS: INR 2.69 (0.85-1.17); PROTIME 27.9 SECONDS (11.6-15.0)
[2017-11-04 15:41] VITALS: BP 131/68
[2017-11-04 22:34] VITALS: BP 110/56
[2017-11-05 01:00] VITALS: BP 117/59
[2017-11-05 05:59] VITALS: BP 138/72
[2017-11-05 07:52] VITALS: BP 140/79
[2017-11-05 08:34] LABS: BASOPHILS 0.2 % (0-2); EOSINOPHILS 3.4 % (0-7); HEMOGLOBIN 10.3 g/dL (13.5-17.5); IMMATURE GRANULOCYTES 0.2 % (0-5); LYMPHOCYTES 10.8 % (15-50); MCH 29.3 pg (26.0-34.0); MCHC 31.2 g/dL (31.0-37.0); MCV 93.8 fL (80.0-100.0); MEAN PLATELET VOLUME 10.2 fL (7.4-10.4); MONOCYTES 11.2 % (2-11); NEUTROPHILS 74.2 % (40-80); PLATELET COUNT 128 10x3/uL (130-400); RBC 3.52 10x6/uL (4.20-6.10); RDW 16.7 % (11.5-14.5); WBC 4.4 10x3/uL (4.8-10.8)
[2017-11-05 09:03] LABS: ANION GAP 13.8 mmol/L (8-16); CARBON DIOXIDE 32.6 mmol/L (21.0-32.0); CREATININE - SERUM 11.1 mg/dL (0.6-1.3); PHOSPHOROUS 8.1 mg/dL (2.5-4.9); POTASSIUM - SERUM 4.4 mmol/L (3.5-5.1)
[2017-11-05 16:27] VITALS: BP 91/48
[2017-11-05 20:00] VITALS: BP 97/52
[2017-11-06] VITALS: BP 101/54
[2017-11-06 04:00] VITALS: BP 129/73
[2017-11-06 08:52] VITALS: BP 118/55
[2017-11-06 08:58] LABS: BASOPHILS 0.6 % (0-2); EOSINOPHILS 2.7 % (0-7); HEMATOCRIT 32.2 % (42.0-54.0); HEMOGLOBIN 10.2 g/dL (13.5-17.5); IMMATURE GRANULOCYTES 1.1 % (0-5); LYMPHOCYTES 11.5 % (15-50); MCH 29.4 pg (26.0-34.0); MCHC 31.7 g/dL (31.0-37.0); MCV 92.8 fL (80.0-100.0); MEAN PLATELET VOLUME 11.7 fL (7.4-10.4); MONOCYTES 16.4 % (2-11); NEUTROPHILS 67.7 % (40-80); PLATELET COUNT 112 10x3/uL (130-400); RBC 3.47 10x6/uL (4.20-6.10); RDW 16.8 % (11.5-14.5); WBC 6.4 10x3/uL (4.8-10.8)
[2017-11-06 09:21] LABS: ANION GAP 14.8 mmol/L (8-16); CALCIUM 9.4 mg/dL (8.5-10.1); CARBON DIOXIDE 30.9 mmol/L (21.0-32.0); PHOSPHOROUS 7.4 mg/dL (2.5-4.9); POTASSIUM - SERUM 4.7 mmol/L (3.5-5.1)
[2017-11-06 09:23] LABS: CREATININE - SERUM 7.8 mg/dL (0.6-1.3)
== END 2017-11-06 10:07 | DRG 189 ==
LOC: D.ER 18:56 → D.EDHOLD 22:26 → OBSVTIME 22:26 → D.M2 11-02 17:22
PROVIDERS: Family Medicine; Internal Medicine Nephrology
DX: J81.1 Chronic pulmonary edema (principal); N18.6 End stage renal disease; D66 Hereditary factor VIII deficiency; I12.0 Hypertensive chronic kidney disease with stage 5 chronic kidney disease or end stage renal disease; K92.2 Gastrointestinal hemorrhage, unspecified; R09.02 Hypoxemia; E11.22 Type 2 diabetes mellitus with diabetic chronic kidney disease; J44.9 Chronic obstructive pulmonary disease, unspecified; E83.39 Other disorders of phosphorus metabolism; I48.91 Unspecified atrial fibrillation; D63.1 Anemia in chronic kidney disease; Z89.511 Acquired absence of right leg below knee; Z91.15 Patient's noncompliance with renal dialysis; N19 Unspecified kidney failure